=== PATIENT | male | born 1940 | race Caucasian/White ===

== ENCOUNTER 2019-09-25 19:48 | Inpatient (IN) | payer MEDICARE, BC ==
[~2019-09-25] VITALS: Ht 172.7 cm; Wt 68.2 kg
[2019-09-25 19:15] VITALS: BP 148/78
[~2019-09-25 19:48] MED LIST: CALC500T54 PO; LOPE-101 PO; MAGN200T7 PO; POTA20TA4 PO; PSYL0.5215 PO; SODI650T PO; TAMS0.4C97 PO; TRAM50TA PO
[2019-09-25] MEDS ORDERED: POTASSIUM CHLORIDE 20 MEQ TABLET.ER. PO ONE (20:15)
[2019-09-25] MEDS ORDERED: DOCUSATE SODIUM 100 MG CAPSULE. PO PRN (21:15)
[2019-09-25] MEDS ORDERED: ONDANSETRON PF 4 MG/2 ML VIAL. IV PRN (21:15)
[2019-09-25] MEDS ORDERED: ACETAMINOPHEN 325 MG TABLET. PO PRN (21:15)
[2019-09-25] MEDS: PSYLLIUM HUSK (SUGAR FREE) 1 PKT PACKET PO SCH (21:30)
[2019-09-25] MEDS: LOPERAMIDE 2 MG CAPSULE PO SCH (21:45)
[2019-09-25] MEDS: HEPARIN for SUB-Q USE 5,000 UNIT/ML VIAL. SQ SCH (22:44)
[2019-09-25 22:59] VITALS: BP 144/64
[2019-09-26 02:30] VITALS: BP 152/83
[2019-09-26 04:28] LABS: CALCIUM 7.8 mg/dL (8.5-10.1); CREATININE 3.3 mg/dL (0.7-1.3); GFR 18.1; MAGNESIUM 2.2 mg/dL (1.8-2.4)
[2019-09-26] MEDS: HEPARIN for SUB-Q USE 5,000 UNIT/ML VIAL. SQ SCH ×3 (06:10→23:20)
[2019-09-26 07:00] VITALS: BP 153/93
--- NOTE | 2019-09-26 08:01 | PDOC1 ---
History and Physical Date of Admission Date of Admission DATE: 09/26/19 TIME: 07:49 Identification/Chief Complaint Chief Complaint Shortness of breath Source Source: Patient History of Present Illness History of Present Illness Mr Puente is an 79yo M w/ PMHx Rectal Cancer s/p diverting ileostomy, diastolic CHF, CKD, ETOH use disorder in remission who presents to the emergency department at [facility] on 09/25/2019 with a several day history of progressive lightheadedness and feeling weak. He states the last time he felt like this he was in renal failure. Patient also states that he has been having shortness of breath dyspnea on exertion he is not making much urine. CXR revealed bilateral small effusions and bibasilar opacities adjacent to effusions left greater than right. Labs significant for BNP greater than 35,000, WBC 9.2, Hb 11.6, platelets 313, albumin 3.3. NA 140, K3.4, BUN 43, CR 3.5, glucose 123, troponin 0 0.128, repeat troponin 0 0.099. EKG: Normal sinus rhythm rate of [address]-T changes He was given 80 mg of furosemide and transferred to [facility]. Here for further treatment Past Medical History Cardiovascular: HTN, Hyperlipidemia Heme/Onc: Cancer Renal/: Chronic renal insuff, Benign prostatic enlarg. Past Surgical History Past Surgical History: Cholecystectomy, Cataract Removal, Colectomy, Other Family History Family History: Hypertension Social History Smoke: No ALCOHOL: none (Quit) Drugs: None Current Medications Current Medications Current Medications Potassium Chloride (Klor-Con) 40 meq 1X ONCE PO Last administered on 09/25/19at 21:00; Start 09/25/19 at 20:15; Stop 09/25/19 at 20:16; Status DC Ondansetron HCl (Zofran) 4 mg PRN Q4HRS PRN IV NAUSEA/VOMITING; Start 09/25/19 at 21:15 Acetaminophen (Tylenol) 650 mg PRN Q4HRS PRN PO TEMP OVER 100.4F OR MILD PAIN; Start 09/25/19 at 21:15 Docusate Sodium (Colace) 100 mg PRN BID PRN PO HARD STOOLS; Start 09/25/19 at 21:15 Loperamide HCl (Imodium) 2 mg TID PO ; Start 09/25/19 at 21:45 Potassium Chloride (Klor-Con) 20 meq BIDWMEALS PO ; Start 09/26/19 at 08:00 Sodium Bicarbonate (Sodium Bicarbonate) 1,300 mg TIDWMEALS PO ; Start 09/26/19 at 08:00 Tamsulosin HCl (Flomax) 0.4 mg DAILY PO ; Start 09/26/19 at 09:00 Tramadol HCl (Ultram) 50 mg PRN Q8HRS PRN PO PAIN; Start 09/25/19 at 21:30 Calcium Carbonate/ Glycine (Oscal) 500 mg TIDWMEALS PO ; Start 09/26/19 at 08:00 Magnesium Oxide (Magnesium Oxide) 400 mg TID PO ; Start 09/26/19 at 09:00 Psyllium Hydrophilic Mucilloid (Metamucil Fiber Packet) 1 pkt QHS PO ; Start 09/25/19 at 21:30 Furosemide (Lasix) 40 mg BID92 IVP ; Start 09/26/19 at 09:00 Heparin Sodium (Porcine) (Heparin Sodium) 5,000 unit Q8HRS SQ Last administered on 09/26/19at 06:10; Start 09/25/19 at 22:00 Active Scripts Active Calcium (Calcium Carbonate) 500 Mg Tab.chew 1 Tab PO TID 30 Days Sodium Bicarbonate 650 Mg Tablet 2 Tab PO TID 30 Days Potassium Chloride (Potassium Chloride) 20 Meq Tablet.er 20 Meq PO BID 30 Days Mag-Oxide (Magnesium Oxide) 200 Mg Tablet 1 Tab PO TID 30 Days Imodium A-D (Loperamide HCl) 2 Mg Capsule 2 Mg PO TID 30 Days Metamucil (Psyllium Husk) 0.52 Gm Capsule 1 Cap PO DAILY 30 Days Reported Tramadol Hcl 50 Mg Tablet 50 Mg PO PRN Q8HRS PRN Flomax (Tamsulosin Hcl) 0.4 Mg Cap.er.24h 1 Cap PO DAILY Allergies Allergies: Coded Allergies: aspirin (Verified Allergy, Intermediate, chest pain, 07/08/19) Penicillins (Verified Allergy, Unknown, 09/26/19) ROS General: YES: Fatigue, Malaise; No: Chills, Night Sweats, Appetite, Other PSYCHOLOGICAL ROS: YES: Depression; No: Anxiety, Behavioral Disorder, Concentration difficultie, Decreased libido, Disorientation, Hallucinations, Hostility, Irritablity, Memory difficulties, Mood Swings, Obsessive thoughts, Physical abuse, Sexual abuse, Sleep disturbances, Suicidal ideation, Other Eyes: No Blurry vision, No Decreased vision, No Double vision, No Dry eyes, No Excessive tearing, No Eye Pain, No Itchy Eyes, No Loss of vision, No Photophobia, No Scotomata, No Uses contacts, No Uses glasses, No Other HEENT: No: Heacaches, Visual Changes, Hearing change, Nasal congestion, Nasal discharge, Oral lesions, Sinus pain, Sore Throat, Epistaxis, Sneezing, Snoring, Tinnitus, Vertigo, Vocal changes, Other ALLERGY AND IMMUNOLOGY: No: Hives, Insect Bite Sensitivity, Itchy/Watery Eyes, Nasal Congestion, Post Nasal Drip, Seasonal Allergies, Other Hematological and Lymphatic: No: Bleeding Problems, Blood Clots, Blood Transfusions, Brusing, Night Sweats, Pallor, Swollen Lymph Nodes, Other ENDOCRINE: No: Breast Changes, Galactorrhea, Hair Pattern Changes, Hot Flashes, Malaise/lethargy, Mood Swings, Palpitations, Polydipsia/polyuria, Skin Changes, Temperature Intolerance, Unexpected Weight Changes, Other Breast: No New/Changing Breast Lumps, No Nipple changes, No Nipple discharge, No Other Respiratory: YES: Shortness of breath, SOB with excertion; No: Cough, Hemoptysis, Orthopnea, Pleuritic Pain, Sputum Changes, Stridor, Tachypnea, Wheezing, Other Cardiovascular: No Chest Pain, No Palpitations, No Orthopnea, No Paroxysmal Noc. Dyspnea, No Edema, No Lt Headedness, No Other Gastrointestinal: No Nausea, No Vomiting, No Abdominal Pain, No Diarrhea, No Constipation, No Melena, No Hematochezia, No Other Genitourinary: No Dysuria, No Frequency, No Incontinence, No Hematuria, No Retention, No Discharge, No Urgency, No Pain, No Flank Pain, No Other, No , No , No , No , No , No , No Musculoskeletal: Yes Muscular Weakness; No Gait Disturbance, No Joint Pain, No Joint Stiffness, No Joint Swelling, No Muscle Pain, No Pain In:, No Swelling In:, No Other Neurological: No Behavorial Changes, No Bowel/Bladder ControlChng, No Confusion, No Dizziness, No Gait Disturbance, No Headaches, No Impaired Coord/balance, No Memory Loss, No Numbness/Tingling, No Seizures, No Speech Problems, No Tremors, No Visual Changes, No Weakness, No Other Skin: No Dry Skin, No Eczema, No Hair Changes, No Lumps, No Mole Changes, No Mottling, No Nail Changes, No Pruritus, No Rash, No Skin Lesion Changes, No Other, No Acne Physical Exam General: Alert, Oriented X3, Cooperative, moderate distress HEENT: Atraumatic, PERRLA, EOMI, Mucous membr. moist/pink Lungs: Other (Bibasilar crackles) Heart: S1S2, RRR, no thrills, no rubs, no gallops, no murmurs Abdomen: Normal bowel sounds, Soft, No tenderness, No hepatosplenomegaly, No masses Rectal Exam: not examined Extremities: No clubbing, No cyanosis, No edema, Normal pulses, No tenderness/swelling Skin: No rashes, No breakdown, No significant lesion Neuro: Normal speech, Strength at 5/5 X4 ext, Normal tone, Sensation intact, Cranial nerves 3-12 NL, Reflexes 2+ Psych/Mental Status: Mental status NL, Mood NL Vitals Vitals Vital Signs Date Time Temp Pulse Resp B/P (MAP) Pulse Ox O2 Delivery O2 Flow Rate FiO2 09/26/19 02:30 98.2 48 24 152/83 (106) 97 Nasal Cannula 2.0 98.2 Labs Labs Laboratory Tests Test 09/26/19 03:30 09/26/19 06:05 Sodium Level 139 mmol/L (136-145) Potassium Level 4.0 mmol/L (3.5-5.1) Chloride Level 99 mmol/L (98-107) Carbon Dioxide Level 30 mmol/L (21-32) Anion Gap 10 (6-14) Blood Urea Nitrogen 46 mg/dL (8-26) Creatinine 3.3 mg/dL (0.7-1.3) Estimated GFR (Cockcroft-Gault) 18.1 Glucose Level 111 mg/dL (70-99) Calcium Level 7.8 mg/dL (8.5-10.1) Magnesium Level 2.2 mg/dL (1.8-2.4) Troponin I Quantitative 0.099 ng/mL (0.000-0.055) 0.097 ng/mL (0.000-0.055) Laboratory Tests Test 09/26/19 03:30 09/26/19 06:05 Sodium Level 139 mmol/L (136-145) Potassium Level 4.0 mmol/L (3.5-5.1) Chloride Level 99 mmol/L (98-107) Carbon Dioxide Level 30 mmol/L (21-32) Anion Gap 10 (6-14) Blood Urea Nitrogen 46 mg/dL (8-26) Creatinine 3.3 mg/dL (0.7-1.3) Estimated GFR (Cockcroft-Gault) 18.1 Glucose Level 111 mg/dL (70-99) Calcium Level 7.8 mg/dL (8.5-10.1) Magnesium Level 2.2 mg/dL (1.8-2.4) Troponin I Quantitative 0.099 ng/mL (0.000-0.055) 0.097 ng/mL (0.000-0.055) Images Images CXR: There is a small left pleural effusion, also very small right pleural effusion. There is bibasilar airspace opacity adjacent to the effusions, left greater than right. No pneumothorax is identified. Catheter projecting over the right inferior neck is believed to be external to patient. Pericardial cardiac silhouette is somewhat enlarged although unchanged. Impression: 1. There are left greater than right pleural effusions with adjacent bibasilar airspace opacity which may be due to edema/atelectasis although infiltrates not excluded. Constellation of findings could be due to left ventricular failure. VTE Prophylaxis Ordered VTE Prophylaxis Devices: No VTE Pharmacological Prophylaxi: Yes Assessment/Plan Assessment/Plan A/P: Acute on chronic diastolic (congestive) heart failure - will continue diuresis with IV lasix. Consult cardiology. Cont BB, statin, ASA. Cr. precludes MEDINA/ARB therapy. SUHAS on Chronic renal failure, stage 4 (severe) - likely vasomotor nephropathy, cardiorenal. Will diurese to improve renal perfusion Bilateral pleural effusions - Will diurese, likely CHF related. Check procalcitonin. No risk factors for COVID 19 Acute hypoxic respiratory failure - likely related to above. Will diurese, wean O2 as tolerated Colorectal cancer in remission - s/p diverting ileostomy. Stoma care ordered Elevated troponin - likely demand ischemia given acute CHF exacerbation Loss of appetite - will start on remeron Insomnia - as above FEN - Renal diet PPX - heparin FULL CODE Dispo - inpatient for CHF exacerbation 2 midnights. SHAKA BAL MD September 26, 2019 08:00
[2019-09-26] MEDS: SODIUM BICARBONATE 650 MG TABLET. PO SCH ×3 (08:07→18:14)
[2019-09-26] MEDS: CALCIUM CARBONATE 500 MG TABLET PO SCH ×3 (08:07→18:14)
[2019-09-26] MEDS: MAGNESIUM OXIDE 400 MG TABLET PO SCH ×3 (08:07→23:13)
[2019-09-26] MEDS: TAMSULOSIN 0.4 MG CAP.ER.24H. PO SCH (08:08)
[2019-09-26] MEDS: LOPERAMIDE 2 MG CAPSULE PO SCH ×3 (08:08→23:13)
[2019-09-26] MEDS: POTASSIUM CHLORIDE 20 MEQ TABLET.ER. PO SCH ×2 (08:08→18:15)
[2019-09-26] MEDS: FUROSEMIDE 40 MG/4 ML VIAL. IVP SCH ×2 (08:09→15:11)
--- NOTE | 2019-09-26 09:56 | PDOC2 ---
CONSULT Date of Consult Date of Consult DATE: 09/26/19 TIME: 09:56 Reason for Consult Reason for Consult: Congestive heart failure Referring Physician Referring Physician: Dr. Hoffman Identification/Chief Complaint Chief Complaint Shortness of breath Source Source: Chart review, Patient History of Present Illness Reason for Visit: 79-year-old male with history of paroxysmal atrial fibrillation, chronic diastolic heart failure, rectal cancer s/p diverting ileostomy initially presented to [facility] with generalized fatigue, loss of appetite, lightheadedness, shortness of breath and was diagnosed with acute on chronic diastolic heart failure and acute on chronic renal insufficiency. He was given 80 mg Lasix and transferred to [facility] for further management. Patient stated that his dyspnea improved but he continues to have fatigue. He denied any chest pain, palpitations or syncope. Past Medical History Cardiovascular: AFIB, CHF, HTN, Hyperlipidemia Heme/Onc: Cancer Renal/: Chronic renal insuff, Benign prostatic enlarg. Past Surgical History Past Surgical History: Cholecystectomy, Cataract Removal, Colectomy, Other Family History Family History: Hypertension Social History No ALCOHOL: none (Quit) Drugs: None Lives: with Family Current Medications Current Medications Current Medications Potassium Chloride (Klor-Con) 40 meq 1X ONCE PO Last administered on 09/25/19at 21:00; Start 09/25/19 at 20:15; Stop 09/25/19 at 20:16; Status DC Ondansetron HCl (Zofran) 4 mg PRN Q4HRS PRN IV NAUSEA/VOMITING; Start 09/25/19 at 21:15 Acetaminophen (Tylenol) 650 mg PRN Q4HRS PRN PO TEMP OVER 100.4F OR MILD PAIN; Start 09/25/19 at 21:15 Docusate Sodium (Colace) 100 mg PRN BID PRN PO HARD STOOLS; Start 09/25/19 at 21:15 Loperamide HCl (Imodium) 2 mg TID PO Last administered on 09/26/19at 08:08; Start 09/25/19 at 21:45 Potassium Chloride (Klor-Con) 20 meq BIDWMEALS PO Last administered on 09/26/19at 08:08; Start 09/26/19 at 08:00 Sodium Bicarbonate (Sodium Bicarbonate) 1,300 mg TIDWMEALS PO Last administered on 09/26/19at 08:07; Start 09/26/19 at 08:00 Tamsulosin HCl (Flomax) 0.4 mg DAILY PO Last administered on 09/26/19at 08:08; Start 09/26/19 at 09:00 Tramadol HCl (Ultram) 50 mg PRN Q8HRS PRN PO PAIN; Start 09/25/19 at 21:30 Calcium Carbonate/ Glycine (Oscal) 500 mg TIDWMEALS PO Last administered on 09/26/19at 08:07; Start 09/26/19 at 08:00 Magnesium Oxide (Magnesium Oxide) 400 mg TID PO Last administered on 09/26/19at 08:07; Start 09/26/19 at 09:00 Psyllium Hydrophilic Mucilloid (Metamucil Fiber Packet) 1 pkt QHS PO ; Start 09/25/19 at 21:30 Furosemide (Lasix) 40 mg BID92 IVP Last administered on 09/26/19at 08:09; Start 09/26/19 at 09:00 Heparin Sodium (Porcine) (Heparin Sodium) 5,000 unit Q8HRS SQ Last administered on 09/26/19at 06:10; Start 09/25/19 at 22:00 Active Scripts Active Calcium (Calcium Carbonate) 500 Mg Tab.chew 1 Tab PO TID 30 Days Sodium Bicarbonate 650 Mg Tablet 2 Tab PO TID 30 Days Potassium Chloride (Potassium Chloride) 20 Meq Tablet.er 20 Meq PO BID 30 Days Mag-Oxide (Magnesium Oxide) 200 Mg Tablet 1 Tab PO TID 30 Days Imodium A-D (Loperamide HCl) 2 Mg Capsule 2 Mg PO TID 30 Days Metamucil (Psyllium Husk) 0.52 Gm Capsule 1 Cap PO DAILY 30 Days Reported Tramadol Hcl 50 Mg Tablet 50 Mg PO PRN Q8HRS PRN Flomax (Tamsulosin Hcl) 0.4 Mg Cap.er.24h 1 Cap PO DAILY Allergies Allergies: Coded Allergies: aspirin (Verified Allergy, Intermediate, chest pain, 07/08/19) Penicillins (Verified Allergy, Unknown, 09/26/19) ROS General: YES: Fatigue, Malaise, Appetite (Loss of) PSYCHOLOGICAL ROS: No: Hallucinations Eyes: No Loss of vision HEENT: No: Epistaxis Respiratory: YES: Shortness of breath; No: Hemoptysis Cardiovascular: No Chest Pain, No Palpitations Genitourinary: No Hematuria Neurological: No Seizures Skin: No Rash Physical Exam General: Alert, Oriented X3, No acute distress HEENT: Atraumatic Lungs: Other (Decreased air entry bases) Heart: Regular rate Abdomen: Soft Extremities: Other (Trace edema) Psych/Mental Status: Mood NL Vitals VITALS Vital Signs Date Time Temp Pulse Resp B/P (MAP) Pulse Ox O2 Delivery O2 Flow Rate FiO2 09/26/19 07:00 98.2 48 153/93 (113) 97 Nasal Cannula 2.0 98.2 09/26/19 02:30 24 Labs Labs Laboratory Tests Test 09/26/19 03:30 09/26/19 06:05 Sodium Level 139 mmol/L (136-145) Potassium Level 4.0 mmol/L (3.5-5.1) Chloride Level 99 mmol/L (98-107) Carbon Dioxide Level 30 mmol/L (21-32) Anion Gap 10 (6-14) Blood Urea Nitrogen 46 mg/dL (8-26) Creatinine 3.3 mg/dL (0.7-1.3) Estimated GFR (Cockcroft-Gault) 18.1 Glucose Level 111 mg/dL (70-99) Calcium Level 7.8 mg/dL (8.5-10.1) Magnesium Level 2.2 mg/dL (1.8-2.4) Troponin I Quantitative 0.099 ng/mL (0.000-0.055) 0.097 ng/mL (0.000-0.055) Procalcitonin < 0.10 ng/mL (0.00-0.10) Laboratory Tests Test 09/26/19 03:30 09/26/19 06:05 Sodium Level 139 mmol/L (136-145) Potassium Level 4.0 mmol/L (3.5-5.1) Chloride Level 99 mmol/L (98-107) Carbon Dioxide Level 30 mmol/L (21-32) Anion Gap 10 (6-14) Blood Urea Nitrogen 46 mg/dL (8-26) Creatinine 3.3 mg/dL (0.7-1.3) Estimated GFR (Cockcroft-Gault) 18.1 Glucose Level 111 mg/dL (70-99) Calcium Level 7.8 mg/dL (8.5-10.1) Magnesium Level 2.2 mg/dL (1.8-2.4) Troponin I Quantitative 0.099 ng/mL (0.000-0.055) 0.097 ng/mL (0.000-0.055) Procalcitonin < 0.10 ng/mL (0.00-0.10) Assessment/Plan Assessment/Plan 1. Acute on chronic diastolic heart failure, better compensated with diuresis. Recent 2D echo in July 2019 showed LVEF 55%. Continue current medical regimen. 2. Slight troponin elevation most probably demand ischemia. Patient denied any chest pain. Doubt ACS. Will consider ischemic evaluation as an outpatient. 3. Paroxysmal atrial fibrillation, presently in sinus rhythm. Telemetry showed one brief episode of NSVT. Magnesium level normal. Patient had few bradycardic episodes on telemetry and hence cannot start beta-blockers. He is a poor candidate for long-term anticoagulation. He has aspirin allergy as well. We will consider event monitor as an outpatient and possible referral for LAAO. 4. Acute on chronic renal insufficiency: Nephrology consultation 5. Hypertension: Start Norvasc to control Thank you for your consultation SHINE MARVIN MD September 26, 2019 09:56
[2019-09-26 11:00] VITALS: BP 141/96
[2019-09-26] MEDS: amLODIPine BESYLATE 5 MG TABLET PO SCH (12:25)
--- NOTE | 2019-09-26 14:55 | PDOC2 ---
CONSULT Date of Consult Date of Consult DATE: 09/26/19 TIME: 14:48 Reason for Consult Reason for Consult: SUHAS AND CKD Referring Physician Referring Physician: VALERIANO Identification/Chief Complaint Chief Complaint SOB Source Source: Chart review, Patient History of Present Illness Reason for Visit: THIS IS AN 79 YR OLD MALE WITH MILD SOB, WEAKNESS AND LIGHT HEADEDNESS. ALSO HAS SUHAS WITH CR OF 3.3. HAS CKD STAGE 4 WITH BASELINE CR OF 2.8. HX NOTABLE FOR COLON CANCER AND DIVERTING COLOSTOMY. ALSO NOTED TO HAVE SOME CHF ON IMAGING. CARDIOLOGY EVALUATION ONGOING AT THIS TIME. GIVEN 80 MG OF LASIX PRIOR TO TRANSFER HERE [facility] [place]. NO HX OF KIDNEY OR BLADDER SURGERIES HEMATURIA DYSURIA OR FREQUENCY NOTED. NO PROBLEMS WITH EMPTYING HIS BLADDER Past Medical History Cardiovascular: AFIB, CHF, HTN, Hyperlipidemia Heme/Onc: Cancer Renal/: Chronic renal insuff, Benign prostatic enlarg. Past Surgical History Past Surgical History: Cholecystectomy, Cataract Removal, Colectomy, Other Family History Family History: Hypertension Social History No ALCOHOL: none (Quit) Drugs: None Lives: with Family Current Medications Current Medications Current Medications Potassium Chloride (Klor-Con) 40 meq 1X ONCE PO Last administered on 09/25/19at 21:00; Start 09/25/19 at 20:15; Stop 09/25/19 at 20:16; Status DC Ondansetron HCl (Zofran) 4 mg PRN Q4HRS PRN IV NAUSEA/VOMITING; Start 09/25/19 at 21:15 Acetaminophen (Tylenol) 650 mg PRN Q4HRS PRN PO TEMP OVER 100.4F OR MILD PAIN; Start 09/25/19 at 21:15 Docusate Sodium (Colace) 100 mg PRN BID PRN PO HARD STOOLS; Start 09/25/19 at 21:15 Loperamide HCl (Imodium) 2 mg TID PO Last administered on 09/26/19at 08:08; Start 09/25/19 at 21:45 Potassium Chloride (Klor-Con) 20 meq BIDWMEALS PO Last administered on 09/26/19at 08:08; Start 09/26/19 at 08:00 Sodium Bicarbonate (Sodium Bicarbonate) 1,300 mg TIDWMEALS PO Last administered on 09/26/19at 08:07; Start 09/26/19 at 08:00 Tamsulosin HCl (Flomax) 0.4 mg DAILY PO Last administered on 09/26/19at 08:08; Start 09/26/19 at 09:00 Tramadol HCl (Ultram) 50 mg PRN Q8HRS PRN PO PAIN; Start 09/25/19 at 21:30 Calcium Carbonate/ Glycine (Oscal) 500 mg TIDWMEALS PO Last administered on 09/26/19at 08:07; Start 09/26/19 at 08:00 Magnesium Oxide (Magnesium Oxide) 400 mg TID PO Last administered on 09/26/19at 08:07; Start 09/26/19 at 09:00 Psyllium Hydrophilic Mucilloid (Metamucil Fiber Packet) 1 pkt QHS PO ; Start 09/25/19 at 21:30 Furosemide (Lasix) 40 mg BID92 IVP Last administered on 09/26/19at 08:09; Start 09/26/19 at 09:00 Heparin Sodium (Porcine) (Heparin Sodium) 5,000 unit Q8HRS SQ Last administered on 09/26/19at 06:10; Start 09/25/19 at 22:00 Mirtazapine (Remeron) 7.5 mg QHS PO ; Start 09/26/19 at 21:00 Amlodipine Besylate (Norvasc) 5 mg DAILY PO Last administered on 09/26/19at 12:25; Start 09/26/19 at 11:30 Active Scripts Active Calcium (Calcium Carbonate) 500 Mg Tab.chew 1 Tab PO TID 30 Days Sodium Bicarbonate 650 Mg Tablet 2 Tab PO TID 30 Days Potassium Chloride (Potassium Chloride) 20 Meq Tablet.er 20 Meq PO BID 30 Days Mag-Oxide (Magnesium Oxide) 200 Mg Tablet 1 Tab PO TID 30 Days Imodium A-D (Loperamide HCl) 2 Mg Capsule 2 Mg PO TID 30 Days Metamucil (Psyllium Husk) 0.52 Gm Capsule 1 Cap PO DAILY 30 Days Reported Tramadol Hcl 50 Mg Tablet 50 Mg PO PRN Q8HRS PRN Flomax (Tamsulosin Hcl) 0.4 Mg Cap.er.24h 1 Cap PO DAILY Allergies Allergies: Coded Allergies: aspirin (Verified Allergy, Intermediate, chest pain, 07/08/19) Penicillins (Verified Allergy, Unknown, 09/26/19) ROS General: YES: Fatigue, Malaise PSYCHOLOGICAL ROS: YES: Anxiety Eyes: Yes Decreased vision HEENT: YES: Heacaches Respiratory: YES: Shortness of breath Gastrointestinal: Yes Constipation Genitourinary: YES Frequency, YES Retention Musculoskeletal: Yes Muscular Weakness Neurological: Yes Dizziness, Yes Weakness Physical Exam General: Alert, Oriented X3, No acute distress HEENT: PERRLA Lungs: Clear to auscultation Heart: Regular rate Abdomen: Normal bowel sounds, Soft, No tenderness Extremities: No cyanosis Neuro: Normal speech, Sensation intact Psych/Mental Status: Mental status NL, Mood NL MUSCULOSKELETAL: No joint tenderness, No deformity, No swelling Vitals VITALS Vital Signs Date Time Temp Pulse Resp B/P (MAP) Pulse Ox O2 Delivery O2 Flow Rate FiO2 09/26/19 12:25 68 141/96 09/26/19 11:00 97.6 96 Nasal Cannula 2.0 97.6 09/26/19 02:30 24 Labs Labs Laboratory Tests Test 09/26/19 03:30 09/26/19 06:05 Sodium Level 139 mmol/L (136-145) Potassium Level 4.0 mmol/L (3.5-5.1) Chloride Level 99 mmol/L (98-107) Carbon Dioxide Level 30 mmol/L (21-32) Anion Gap 10 (6-14) Blood Urea Nitrogen 46 mg/dL (8-26) Creatinine 3.3 mg/dL (0.7-1.3) Estimated GFR (Cockcroft-Gault) 18.1 Glucose Level 111 mg/dL (70-99) Calcium Level 7.8 mg/dL (8.5-10.1) Magnesium Level 2.2 mg/dL (1.8-2.4) Troponin I Quantitative 0.099 ng/mL (0.000-0.055) 0.097 ng/mL (0.000-0.055) Procalcitonin < 0.10 ng/mL (0.00-0.10) Laboratory Tests Test 09/26/19 03:30 09/26/19 06:05 Sodium Level 139 mmol/L (136-145) Potassium Level 4.0 mmol/L (3.5-5.1) Chloride Level 99 mmol/L (98-107) Carbon Dioxide Level 30 mmol/L (21-32) Anion Gap 10 (6-14) Blood Urea Nitrogen 46 mg/dL (8-26) Creatinine 3.3 mg/dL (0.7-1.3) Estimated GFR (Cockcroft-Gault) 18.1 Glucose Level 111 mg/dL (70-99) Calcium Level 7.8 mg/dL (8.5-10.1) Magnesium Level 2.2 mg/dL (1.8-2.4) Troponin I Quantitative 0.099 ng/mL (0.000-0.055) 0.097 ng/mL (0.000-0.055) Procalcitonin < 0.10 ng/mL (0.00-0.10) Assessment/Plan Assessment/Plan IMP SUHAS VS PROGRESSIVE CKD STAGE 4-CR OF 3.3 ACUTE ON CHRONIC DIASTOLIC CHF ACUTE HYPOXIC RESP FAILURE COLON CA IN REMISSION-S/P DIVERTING COLOSTOMY PLAN CARDIOLOGY EVALUATION CONT FLOMAX IV LASIX NEEDED HE MAY NEED DIALYSIS CHECK H/H CHECK PO4 D/W PT GREGORIA ALBERTO MD September 26, 2019 14:55
[2019-09-26 15:00] VITALS: BP 135/75
[2019-09-26] MEDS: traMADol 50 MG TABLET PO PRN (15:12)
[2019-09-26 19:00] VITALS: BP 135/52
[2019-09-26] MEDS: PSYLLIUM HUSK (SUGAR FREE) 1 PKT PACKET PO SCH (21:00)
[2019-09-26 23:02] VITALS: BP 143/62
[2019-09-26] MEDS: MIRTAZAPINE 7.5 MG TABLET. PO SCH (23:13)
[2019-09-27 03:02] VITALS: BP 98/68
[2019-09-27 05:06] LABS: HEMATOCRIT 40.1 % (39.0-53.0); HEMOGLOBIN 13.1 g/dL (13.0-17.5); RED BLOOD COUNT 4.53 x10^6/uL (4.30-5.70); RED CELL DISTRIBUTION WIDTH 14.6 % (11.5-14.5); WHITE BLOOD COUNT 7.3 x10^3/uL (4.0-11.0)
[2019-09-27 05:29] LABS: CALCIUM 7.3 mg/dL (8.5-10.1); CREATININE 3.3 mg/dL (0.7-1.3); GFR 18.1; PHOSPHORUS 4.4 mg/dL (2.6-4.7)
[2019-09-27] MEDS: HEPARIN for SUB-Q USE 5,000 UNIT/ML VIAL. SQ SCH ×3 (06:36→21:17)
[2019-09-27 07:39] VITALS: BP 116/71
[2019-09-27] MEDS: LOPERAMIDE 2 MG CAPSULE PO SCH ×3 (09:12→21:08)
[2019-09-27] MEDS: POTASSIUM CHLORIDE 20 MEQ TABLET.ER. PO SCH ×2 (09:12→16:58)
[2019-09-27] MEDS: SODIUM BICARBONATE 650 MG TABLET. PO SCH ×3 (09:12→16:58)
[2019-09-27] MEDS: CALCIUM CARBONATE 500 MG TABLET PO SCH ×3 (09:12→16:58)
[2019-09-27] MEDS: amLODIPine BESYLATE 5 MG TABLET PO SCH (09:12)
[2019-09-27] MEDS: MAGNESIUM OXIDE 400 MG TABLET PO SCH ×3 (09:12→21:08)
[2019-09-27] MEDS: TAMSULOSIN 0.4 MG CAP.ER.24H. PO SCH (09:13)
[2019-09-27] MEDS: FUROSEMIDE 40 MG/4 ML VIAL. IVP SCH ×2 (09:13→14:10)
--- NOTE | 2019-09-27 09:24 | PDOC ---
SUBJECTIVE ROS Stable, states battery in his hearing aid needs to be replaced No N/V OBJECTIVE Vital Signs Vital Signs Date Time Temp Pulse Resp B/P (MAP) Pulse Ox O2 Delivery O2 Flow Rate FiO2 09/27/19 09:12 61 116/71 09/27/19 07:39 97.6 20 96 Nasal Cannula 97.6 09/26/19 20:00 2.0 I & 0 Intake and Output 09/27/19 07:00 Output Total 1750 ml Balance -1750 ml Output Urine Total 700 ml Stool Total 1050 ml PHYSICAL EXAM Physical Exam General: Alert, Oriented X3, HEENT: OM moist, On O2 by [place] Lungs: Other (Bibasilar crackles) Heart: S1S2, RRR, no thrills, no rubs, no gallops, no murmurs Abdomen: Normal bowel sounds, Soft, No tenderness, No hepatosplenomegaly, No masses Rectal Exam: not examined Extremities: No clubbing, No cyanosis, No edema, Normal pulses, No tenderness/swelling Skin: No rashes, No breakdown, No significant lesion Neuro: Normal speech, Strength at 5/5 X4 ext, Normal tone, Sensation intact, C ranial nerves 3-12 NL, Reflexes 2+ Psych/Mental Status: Mental status NL, Mood NL DIAGNOSIS/ASSESSMENT Assessment & Plan SUHAS vs progression of CKD Currently No emergent indication for HD today, pt is still undecided if he wants to do HD He will let me know by tomorrow Supportive care, Strict I/O, avoid Nephrotoxins, Daily standing wt, HypoKalemia- replace as indicated On NaHco3 PO, decrease dose if Bicarb high Normal CKD Stage 4 - Cr 2.4 in 2017 , used to follow with Dr. Amaya, did not keep fu appts Was Hospitalized in July 2019, he venecia not make fu appt with nephrology as advised Acute on Chronic Diastolic CHF- Currently in IV Lasix BID, Cardiology managing Ac Hypoxic Resp failure- On O2 by MEHDI Colon Ca in Remission s/p Diverting Colostomy Right renal cyst. Probable left renal cyst - CT scan in Jun 2019 Radiology recommended a follow-up sonogram of both kidneys in 6 months to ensure stability of the left renal lesion. Defer to Primary BPH- On Flomax COMMENT/RELEVANT DATA Meds Current Medications Medications (Trade) Dose Ordered Sig/Richard Start Time Stop Time Status Last Admin Dose Admin Acetaminophen (Tylenol) 650 mg PRN Q4HRS PRN 09/25/19 21:15 09/26/19 23:13 650 MG Amlodipine Besylate (Norvasc) 5 mg DAILY 09/26/19 11:30 09/27/19 09:12 5 MG Calcium Carbonate/ Glycine (Oscal) 500 mg TIDWMEALS 09/26/19 08:00 09/27/19 09:12 500 MG Docusate Sodium (Colace) 100 mg PRN BID PRN 09/25/19 21:15 Furosemide (Lasix) 40 mg BID92 09/26/19 09:00 09/27/19 09:13 40 MG Heparin Sodium (Porcine) (Heparin Sodium) 5,000 unit Q8HRS 09/25/19 22:00 09/27/19 06:36 5,000 UNIT Loperamide HCl (Imodium) 2 mg TID 09/25/19 21:45 09/27/19 09:12 2 MG Magnesium Oxide (Magnesium Oxide) 400 mg TID 09/26/19 09:00 09/27/19 09:12 400 MG Mirtazapine (Remeron) 7.5 mg QHS 09/26/19 21:00 09/26/19 23:13 7.5 MG Ondansetron HCl (Zofran) 4 mg PRN Q4HRS PRN 09/25/19 21:15 Potassium Chloride (Klor-Con) 20 meq BIDWMEALS 09/26/19 08:00 09/27/19 09:12 20 MEQ Psyllium Hydrophilic Mucilloid (Metamucil Fiber Packet) 1 pkt QHS 09/25/19 21:30 Sodium Bicarbonate (Sodium Bicarbonate) 1,300 mg TIDWMEALS 09/26/19 08:00 09/27/19 09:12 1,300 MG Tamsulosin HCl (Flomax) 0.4 mg DAILY 09/26/19 09:00 09/27/19 09:13 0.4 MG Tramadol HCl (Ultram) 50 mg PRN Q8HRS PRN 09/25/19 21:30 09/26/19 15:12 50 MG Lab Laboratory Tests Test 09/27/19 03:55 White Blood Count 7.3 x10^3/uL (4.0-11.0) Red Blood Count 4.53 x10^6/uL (4.30-5.70) Hemoglobin 13.1 g/dL (13.0-17.5) Hematocrit 40.1 % (39.0-53.0) Mean Corpuscular Volume 89 fL (79-100) Mean Corpuscular Hemoglobin 29 pg (25-35) Mean Corpuscular Hemoglobin Concent 33 g/dL (31-37) Red Cell Distribution Width 14.6 % (11.5-14.5) Platelet Count 315 x10^3/uL (140-400) Sodium Level 143 mmol/L (136-145) Potassium Level 3.0 mmol/L (3.5-5.1) Chloride Level 102 mmol/L (98-107) Carbon Dioxide Level 31 mmol/L (21-32) Anion Gap 10 (6-14) Blood Urea Nitrogen 46 mg/dL (8-26) Creatinine 3.3 mg/dL (0.7-1.3) Estimated GFR (Cockcroft-Gault) 18.1 Glucose Level 94 mg/dL (70-99) Calcium Level 7.3 mg/dL (8.5-10.1) Phosphorus Level 4.4 mg/dL (2.6-4.7) Results All relevant outside records, renal labs, imaging studies, telemetry/EKG's were reviewed. NOÉ NEGRETE MD September 27, 2019 09:23
--- NOTE | 2019-09-27 11:33 | PDOC ---
JANEE VO MATERIALS PLANNER/PRODUCTION PLANNER 09/27/19 1133: CARDIO Progress Notes Date and Time Date of Service 09/27/19 Time of Evaluation 1045 Subjective Subjective: Other (SOA better, but persists ) Vitals Vitals Vital Signs Date Time Temp Pulse Resp B/P (MAP) Pulse Ox O2 Delivery O2 Flow Rate FiO2 09/27/19 09:12 61 116/71 09/27/19 07:39 97.6 20 96 Nasal Cannula 97.6 09/26/19 20:00 2.0 Weight Weight [ ] Input and Output Intake and Output Intake and Output 09/27/19 07:00 Output Total 1750 ml Balance -1750 ml Output Urine Total 700 ml Stool Total 1050 ml Laboratory Labs Laboratory Tests Test 09/27/19 03:55 White Blood Count 7.3 x10^3/uL (4.0-11.0) Red Blood Count 4.53 x10^6/uL (4.30-5.70) Hemoglobin 13.1 g/dL (13.0-17.5) Hematocrit 40.1 % (39.0-53.0) Mean Corpuscular Volume 89 fL (79-100) Mean Corpuscular Hemoglobin 29 pg (25-35) Mean Corpuscular Hemoglobin Concent 33 g/dL (31-37) Red Cell Distribution Width 14.6 % (11.5-14.5) Platelet Count 315 x10^3/uL (140-400) Sodium Level 143 mmol/L (136-145) Potassium Level 3.0 mmol/L (3.5-5.1) Chloride Level 102 mmol/L (98-107) Carbon Dioxide Level 31 mmol/L (21-32) Anion Gap 10 (6-14) Blood Urea Nitrogen 46 mg/dL (8-26) Creatinine 3.3 mg/dL (0.7-1.3) Estimated GFR (Cockcroft-Gault) 18.1 Glucose Level 94 mg/dL (70-99) Calcium Level 7.3 mg/dL (8.5-10.1) Phosphorus Level 4.4 mg/dL (2.6-4.7) Physical Exam HEENT: Neck Supple W Full Motion Chest: Symmetric LUNGS: Other (diminished ) Heart: S1S2, irregularly irregular (AFIB, rate controlled ) Abdomen: Soft N/T Extremities: No Edema Neurology: alert, follow commands Assessment Assessment 1. Acute on chronic diastolic CHF; Recent echo with preserved LV systolic function. better compensated with diuresis. 2. Mild troponin elevation; peak 0.09. Most probably type II, demand ischemia. CP free. 3. PAFIB; remains in AFIB. occasional slow ventricular rate. mean near 60. No pauses. Not on rate control therapy 4. Arrhythmia; brief burst of NSVT. Unable to start BB due to episodes of bradycardia. 4. CKD; awaiting decision on initiating HD 5. Hypertension; controlled 6. Colon CA s/p colectomy with ileostomy 7. Hypokalemia Recommendations Diuresis with monitoring of renal function Awaiting patient decision regarding initiation of HD Consider further ischemic evaluation given heart failure and elevated troponin. If HD is started, can proceed with C. Otherwise, will further risk stratify with stress test given renal failure Keep Mg> 2.0 and K > 4.0 Poor candidate fo long-term OAC. Allergy to ASA. Consider to referral for YAA closure device. Consider outpatient event monitor to guide therapy. Supportive care LEONARDO CHOU MD 09/27/19 1643: CARDIO Progress Notes Plan Plan Pt. seen and examined. Agree with above PLANT PACKER note. Discussed with patient about his dyspnea. Likely related to diastolic HF but cannot rule out underlying CAD. Plan as above JANEE VO APRN September 27, 2019 11:33 LEONARDO CHOU MD September 27, 2019 16:43
[2019-09-27 11:37] VITALS: BP 143/78
--- NOTE | 2019-09-27 12:34 | PDOC ---
PROGRESS NOTES Chief Complaint Chief Complaint Assessment/Plan A/P: Acute on chronic diastolic (congestive) heart failure - will continue diuresis with IV lasix. Consult cardiology. Cont BB, statin, ASA. Cr. precludes MEDINA/ARB therapy. SUHAS on Chronic renal failure, stage 4 (severe) - likely vasomotor nephropathy, cardiorenal. Continue with diuresis to improve renal perfusion Bilateral pleural effusions - Will diurese, likely CHF related. Check procalcitonin. No risk factors for COVID 19 Acute hypoxic respiratory failure - likely related to above. Will diurese, wean O2 as tolerated Colorectal cancer in remission - s/p diverting ileostomy. Stoma care ordered Elevated troponin - likely demand ischemia given acute CHF exacerbation Loss of appetite - will start on remeron Insomnia - as above FEN - Renal diet PPX - heparin FULL CODE Dispo - inpatient for CHF exacerbation 2 midnights. History of Present Illness History of Present Illness Patient quite somnolent this morning with no acute events reported overnight by nursing staff, we will continue to follow recommendations from bridal sales consultant, CODE STATUS updated Vitals Vitals Vital Signs Date Time Temp Pulse Resp B/P (MAP) Pulse Ox O2 Delivery O2 Flow Rate FiO2 09/27/19 11:37 97.6 57 20 143/78 (99) 97 Nasal Cannula 97.6 09/27/19 08:45 2.0 Physical Exam Physical Exam General: Alert, Oriented X3, Cooperative, moderate distress HEENT: Atraumatic, PERRLA, EOMI, Mucous membr. moist/pink Lungs: Other (Bibasilar crackles) Heart: S1S2, RRR, no thrills, no rubs, no gallops, no murmurs Abdomen: Normal bowel sounds, Soft, No tenderness, No hepatosplenomegaly, No masses Rectal Exam: not examined Extremities: No clubbing, No cyanosis, No edema, Normal pulses, No t enderness/swelling Skin: No rashes, No breakdown, No significant lesion Neuro: Normal speech, Strength at 5/5 X4 ext, Normal tone, Sensation intact, Cranial nerves 3-12 NL, Reflexes 2+ Psych/Mental Status: Mental status NL, Mood NL General: Alert, Oriented X3, No acute distress Heart: Regular rate Abdomen: Normal bowel sounds, Soft, No tenderness Extremities: No cyanosis Skin: No rashes, No breakdown, No significant lesion Labs LABS Laboratory Tests Test 09/27/19 03:55 White Blood Count 7.3 x10^3/uL (4.0-11.0) Red Blood Count 4.53 x10^6/uL (4.30-5.70) Hemoglobin 13.1 g/dL (13.0-17.5) Hematocrit 40.1 % (39.0-53.0) Mean Corpuscular Volume 89 fL (79-100) Mean Corpuscular Hemoglobin 29 pg (25-35) Mean Corpuscular Hemoglobin Concent 33 g/dL (31-37) Red Cell Distribution Width 14.6 % (11.5-14.5) Platelet Count 315 x10^3/uL (140-400) Sodium Level 143 mmol/L (136-145) Potassium Level 3.0 mmol/L (3.5-5.1) Chloride Level 102 mmol/L (98-107) Carbon Dioxide Level 31 mmol/L (21-32) Anion Gap 10 (6-14) Blood Urea Nitrogen 46 mg/dL (8-26) Creatinine 3.3 mg/dL (0.7-1.3) Estimated GFR (Cockcroft-Gault) 18.1 Glucose Level 94 mg/dL (70-99) Calcium Level 7.3 mg/dL (8.5-10.1) Phosphorus Level 4.4 mg/dL (2.6-4.7) Comment Review of Relevant I have reviewed the following items salome (where applicable) has been applied. Labs Laboratory Tests Test 09/26/19 03:30 09/26/19 06:05 09/27/19 03:55 Sodium Level 139 mmol/L (136-145) 143 mmol/L (136-145) Potassium Level 4.0 mmol/L (3.5-5.1) 3.0 mmol/L (3.5-5.1) Chloride Level 99 mmol/L (98-107) 102 mmol/L (98-107) Carbon Dioxide Level 30 mmol/L (21-32) 31 mmol/L (21-32) Anion Gap 10 (6-14) 10 (6-14) Blood Urea Nitrogen 46 mg/dL (8-26) 46 mg/dL (8-26) Creatinine 3.3 mg/dL (0.7-1.3) 3.3 mg/dL (0.7-1.3) Estimated GFR (Cockcroft-Gault) 18.1 18.1 Glucose Level 111 mg/dL (70-99) 94 mg/dL (70-99) Calcium Level 7.8 mg/dL (8.5-10.1) 7.3 mg/dL (8.5-10.1) Magnesium Level 2.2 mg/dL (1.8-2.4) Troponin I Quantitative 0.099 ng/mL (0.000-0.055) 0.097 ng/mL (0.000-0.055) Procalcitonin < 0.10 ng/mL (0.00-0.10) White Blood Count 7.3 x10^3/uL (4.0-11.0) Red Blood Count 4.53 x10^6/uL (4.30-5.70) Hemoglobin 13.1 g/dL (13.0-17.5) Hematocrit 40.1 % (39.0-53.0) Mean Corpuscular Volume 89 fL (79-100) Mean Corpuscular Hemoglobin 29 pg (25-35) Mean Corpuscular Hemoglobin Concent 33 g/dL (31-37) Red Cell Distribution Width 14.6 % (11.5-14.5) Platelet Count 315 x10^3/uL (140-400) Phosphorus Level 4.4 mg/dL (2.6-4.7) Laboratory Tests Test 09/27/19 03:55 White Blood Count 7.3 x10^3/uL (4.0-11.0) Red Blood Count 4.53 x10^6/uL (4.30-5.70) Hemoglobin 13.1 g/dL (13.0-17.5) Hematocrit 40.1 % (39.0-53.0) Mean Corpuscular Volume 89 fL (79-100) Mean Corpuscular Hemoglobin 29 pg (25-35) Mean Corpuscular Hemoglobin Concent 33 g/dL (31-37) Red Cell Distribution Width 14.6 % (11.5-14.5) Platelet Count 315 x10^3/uL (140-400) Sodium Level 143 mmol/L (136-145) Potassium Level 3.0 mmol/L (3.5-5.1) Chloride Level 102 mmol/L (98-107) Carbon Dioxide Level 31 mmol/L (21-32) Anion Gap 10 (6-14) Blood Urea Nitrogen 46 mg/dL (8-26) Creatinine 3.3 mg/dL (0.7-1.3) Estimated GFR (Cockcroft-Gault) 18.1 Glucose Level 94 mg/dL (70-99) Calcium Level 7.3 mg/dL (8.5-10.1) Phosphorus Level 4.4 mg/dL (2.6-4.7) Medications Current Medications Potassium Chloride (Klor-Con) 40 meq 1X ONCE PO Last administered on 09/25/19 21:00; Start 09/25/19 at 20:15; Stop 09/25/19 at 20:16; Status DC Ondansetron HCl (Zofran) 4 mg PRN Q4HRS PRN IV NAUSEA/VOMITING; Start 09/25/19 at 21:15 Acetaminophen (Tylenol) 650 mg PRN Q4HRS PRN PO TEMP OVER 100.4F OR MILD PAIN Last administered on 09/26/19at 23:13; Start 09/25/19 at 21:15 Docusate Sodium (Colace) 100 mg PRN BID PRN PO HARD STOOLS; Start 09/25/19 at 21:15 Loperamide HCl (Imodium) 2 mg TID PO Last administered on 09/27/19at 09:12; Start 09/25/19 at 21:45 Potassium Chloride (Klor-Con) 20 meq BIDWMEALS PO Last administered on 09/27/19at 09:12; Start 09/26/19 at 08:00 Sodium Bicarbonate (Sodium Bicarbonate) 1,300 mg TIDWMEALS PO Last administered on 09/27/19 09:12; Start 09/26/19 at 08:00 Tamsulosin HCl (Flomax) 0.4 mg DAILY PO Last administered on 09/27/19 09:13; Start 09/26/19 at 09:00 Tramadol HCl (Ultram) 50 mg PRN Q8HRS PRN PO PAIN Last administered on 09/26/19 15:12; Start 09/25/19 at 21:30 Calcium Carbonate/ Glycine (Oscal) 500 mg TIDWMEALS PO Last administered on 09/27/19 09:12; Start 09/26/19 at 08:00 Magnesium Oxide (Magnesium Oxide) 400 mg TID PO Last administered on 09/27/19 09:12; Start 09/26/19 at 09:00 Psyllium Hydrophilic Mucilloid (Metamucil Fiber Packet) 1 pkt QHS PO ; Start 09/25/19 at 21:30 Furosemide (Lasix) 40 mg BID92 IVP Last administered on 09/27/19at 09:13; Start 09/26/19 at 09:00 Heparin Sodium (Porcine) (Heparin Sodium) 5,000 unit Q8HRS SQ Last administered on 09/27/19at 06:36; Start 09/25/19 at 22:00 Mirtazapine (Remeron) 7.5 mg QHS PO Last administered on 09/26/19at 23:13; Start 09/26/19 at 21:00 Amlodipine Besylate (Norvasc) 5 mg DAILY PO Last administered on 09/27/19at 09 :12; Start 09/26/19 at 11:30 Active Scripts Active Calcium (Calcium Carbonate) 500 Mg Tab.chew 1 Tab PO TID 30 Days Sodium Bicarbonate 650 Mg Tablet 2 Tab PO TID 30 Days Potassium Chloride (Potassium Chloride) 20 Meq Tablet.er 20 Meq PO BID 30 Days Mag-Oxide (Magnesium Oxide) 200 Mg Tablet 1 Tab PO TID 30 Days Imodium A-D (Loperamide HCl) 2 Mg Capsule 2 Mg PO TID 30 Days Metamucil (Psyllium Husk) 0.52 Gm Capsule 1 Cap PO DAILY 30 Days Reported Tramadol Hcl 50 Mg Tablet 50 Mg PO PRN Q8HRS PRN Flomax (Tamsulosin Hcl) 0.4 Mg Cap.er.24h 1 Cap PO DAILY Vitals/I & O Vital Sign - Last 24 Hours 09/26/19 09/26/19 09/26/19 09/26/19 15:00 15:12 16:12 19:00 Temp 97.6 98.4 97.6 98.4 Pulse 55 78 Resp 18 18 18 B/P (MAP) 135/75 (95) 135/52 (79) Pulse Ox 94 97 O2 Delivery Nasal Cannula Nasal Cannula Nasal Cannula Room Air O2 Flow Rate 2.0 2.0 2.0 09/26/19 09/26/19 09/27/1920 20:00 23:02 03:02 07:39 Temp 97.5 97.1 97.6 97.5 97.1 97.6 Pulse 54 59 61 Resp 20 20 20 B/P (MAP) 143/62 (89) 98/68 (78) 116/71 (86) Pulse Ox 95 99 96 O2 Delivery Nasal Cannula Nasal Cannula Nasal Cannula Nasal Cannula O2 Flow Rate 2.0 09/27/19 09/27/19 09/27/19 08:45 09:12 11:37 Temp 97.6 97.6 Pulse 61 57 Resp 20 B/P (MAP) 116/71 143/78 (99) Pulse Ox 97 O2 Delivery Nasal Cannula Nasal Cannula O2 Flow Rate 2.0 Intake and Output 09/26/19 09/26/19 09/27/19 15:00 23:00 07:00 Output Total 1000 ml 750 ml Balance -1000 ml -750 ml VA SHAH MD September 27, 2019 12:34
--- NOTE | 2019-09-27 14:34 | NUR ---
SS following for discharge planning. SS reviewed pt chart and discussed with pt RN. Pt is from home with spouse and is currently requiring oxygen. Pt was previously on services with [facility], ; fax [phone]. Outpatient hemodialysis recommended. Pt undecided if he wants outpatient dialysis at this time. Per RN, pt to decide tomorrow. SS will continue to follow for discharge planning.
[2019-09-27 15:34] VITALS: BP 127/68
[2019-09-27 19:20] VITALS: BP 99/81
[2019-09-27] MEDS: MIRTAZAPINE 7.5 MG TABLET. PO SCH (21:08)
[2019-09-27] MEDS: traMADol 50 MG TABLET PO PRN (21:12)
[2019-09-27] MEDS: PSYLLIUM HUSK (SUGAR FREE) 1 PKT PACKET PO SCH (21:18)
[2019-09-27 23:36] VITALS: BP 121/74
[2019-09-28 03:31] VITALS: BP 148/79
[2019-09-28] MEDS: HEPARIN for SUB-Q USE 5,000 UNIT/ML VIAL. SQ SCH ×3 (06:09→21:27)
[2019-09-28 06:39] LABS: CALCIUM 7.2 mg/dL (8.5-10.1); CREATININE 3.6 mg/dL (0.7-1.3); GFR 16.4; POTASSIUM 3.1 mmol/L (3.5-5.1)
[2019-09-28 07:44] VITALS: BP 133/64
[2019-09-28] MEDS: SODIUM BICARBONATE 650 MG TABLET. PO SCH ×2 (08:35→11:32)
[2019-09-28] MEDS: LOPERAMIDE 2 MG CAPSULE PO SCH ×3 (08:35→21:00)
[2019-09-28] MEDS: CALCIUM CARBONATE 500 MG TABLET PO SCH ×3 (08:35→16:42)
[2019-09-28] MEDS: MAGNESIUM OXIDE 400 MG TABLET PO SCH ×3 (08:35→21:18)
[2019-09-28] MEDS: POTASSIUM CHLORIDE 20 MEQ TABLET.ER. PO SCH ×2 (08:35→16:42)
[2019-09-28] MEDS: TAMSULOSIN 0.4 MG CAP.ER.24H. PO SCH (08:35)
[2019-09-28] MEDS: FUROSEMIDE 40 MG/4 ML VIAL. IVP SCH (08:36)
[2019-09-28] MEDS: amLODIPine BESYLATE 5 MG TABLET PO SCH (08:36)
--- NOTE | 2019-09-28 09:21 | PDOC ---
SUBJECTIVE ROS Stable OBJECTIVE Vital Signs Vital Signs Date Time Temp Pulse Resp B/P (MAP) Pulse Ox O2 Delivery O2 Flow Rate FiO2 09/28/19 08:36 63 133/64 09/28/19 08:30 Nasal Cannula 2.0 09/28/19 07:44 98.1 18 94 98.1 I & 0 Intake and Output 09/28/19 06:59 Intake Total 880 ml Output Total 2975 ml Balance -2095 ml Intake Oral 880 ml Output Urine Total 1075 ml Stool Total 1900 ml PHYSICAL EXAM Physical Exam General: Alert, Oriented X3, HEENT: OM moist, On O2 by [place] Lungs: Other (Bibasilar crackles) Heart: S1S2, RRR, no thrills, no rubs, no gallops, no murmurs Abdomen: Normal bowel sounds, Soft, No tenderness, No hepatosplenomegaly, No masses Rectal Exam: not examined Extremities: No clubbing, No cyanosis, No edema, Normal pulses, No tenderness/swelling Skin: No rashes, No breakdown, No significant lesion Neuro: Normal speech, Strength at 5/5 X4 ext, Normal tone, Sensation intact, Cranial nerves 3-12 NL, Reflexes 2+ Psych/Mental Status: Mental status NL, Mood NL DIAGNOSIS/ASSESSMENT Assessment & Plan SUHAS - worsening renal function/Cardiorenal/Diuretics Supportive care, Strict I/O, avoid Nephrotoxins, Daily standing wt, Recommend switching to PO Diuretics, Defer to cardiology Pt refusing HD, states he wants to go home and discuss with his HypoKalemia- replace as indicated Stop NaHco3 CKD Stage 4 - Cr 2.4 in 2018 , used to follow with Dr. Amaya, did not keep fu appts Was Hospitalized in July 2019, he venecia not make fu appt with nephrology as advised Acute on Chronic Diastolic CHF- Currently on IV Lasix BID, Cardiology managing Ac Hypoxic Resp failure- On O2 by [place] Colon Ca in Remission s/p Diverting Colostomy Right renal cyst. Probable left renal cyst - CT scan in Jun 2019 Radiology recommended a follow-up sonogram of both kidneys in 6 months to ensure stability of the left renal lesion. Defer to Primary BPH- On Flomax COMMENT/RELEVANT DATA Meds Current Medications Medications (Trade) Dose Ordered Sig/Richard Start Time Stop Time Status Last Admin Dose Admin Acetaminophen (Tylenol) 650 mg PRN Q4HRS PRN 09/25/19 21:15 09/26/19 23:13 650 MG Amlodipine Besylate (Norvasc) 5 mg DAILY 09/26/19 11:30 09/28/19 08:36 5 MG Calcium Carbonate/ Glycine (Oscal) 500 mg TIDWMEALS 09/26/19 08:00 09/28/19 08:35 500 MG Docusate Sodium (Colace) 100 mg PRN BID PRN 09/25/19 21:15 Furosemide (Lasix) 40 mg BID92 09/26/19 09:00 09/28/19 08:36 40 MG Heparin Sodium (Porcine) (Heparin Sodium) 5,000 unit Q8HRS 09/25/19 22:00 09/28/19 06:09 5,000 UNIT Loperamide HCl (Imodium) 2 mg TID 09/25/19 21:45 09/28/19 08:35 2 MG Magnesium Oxide (Magnesium Oxide) 400 mg TID 09/26/19 09:00 09/28/19 08:35 400 MG Mirtazapine (Remeron) 7.5 mg QHS 09/26/19 21:00 09/27/19 21:08 7.5 MG Ondansetron HCl (Zofran) 4 mg PRN Q4HRS PRN 09/25/19 21:15 Potassium Chloride (Klor-Con) 20 meq BIDWMEALS 09/26/19 08:00 09/28/19 08:35 20 MEQ Psyllium Hydrophilic Mucilloid (Metamucil Fiber Packet) 1 pkt QHS 09/25/19 21:30 Sodium Bicarbonate (Sodium Bicarbonate) 1,300 mg TIDWMEALS 09/26/19 08:00 09/28/19 08:35 1,300 MG Tamsulosin HCl (Flomax) 0.4 mg DAILY 09/26/19 09:00 09/28/19 08:35 0.4 MG Tramadol HCl (Ultram) 50 mg PRN Q8HRS PRN 09/25/19 21:30 09/27/19 21:12 50 MG Lab Laboratory Tests Test 09/28/19 05:10 Sodium Level 143 mmol/L (136-145) Potassium Level 3.1 mmol/L (3.5-5.1) Chloride Level 102 mmol/L (98-107) Carbon Dioxide Level 32 mmol/L (21-32) Anion Gap 9 (6-14) Blood Urea Nitrogen 48 mg/dL (8-26) Creatinine 3.6 mg/dL (0.7-1.3) Estimated GFR (Cockcroft-Gault) 16.4 Glucose Level 96 mg/dL (70-99) Calcium Level 7.2 mg/dL (8.5-10.1) Results All relevant outside records, renal labs, imaging studies, telemetry/EKG's were reviewed. NOÉ NEGRETE MD September 28, 2019 09:21
--- NOTE | 2019-09-28 09:34 | PDOC ---
JACKIE HEARN FRONT OFFICE SPEC 09/28/19 0934: CARDIO Progress Notes Date and Time Date of Service 09/28/2019 Time of Evaluation 0910 Subjective Subjective: No Chest Pain, No shortness of breath, No Palpitations Vitals Vitals Vital Signs Date Time Temp Pulse Resp B/P (MAP) Pulse Ox O2 Delivery O2 Flow Rate FiO2 09/28/19 08:36 63 133/64 09/28/19 08:30 Nasal Cannula 2.0 09/28/19 07:44 98.1 18 94 98.1 Weight Weight [ ] Input and Output Intake and Output Intake and Output 09/28/19 07:00 Intake Total 880 ml Output Total 2975 ml Balance -2095 ml Intake Oral 880 ml Output Urine Total 1075 ml Stool Total 1900 ml Laboratory Labs Laboratory Tests Test 09/28/19 05:10 Sodium Level 143 mmol/L (136-145) Potassium Level 3.1 mmol/L (3.5-5.1) Chloride Level 102 mmol/L (98-107) Carbon Dioxide Level 32 mmol/L (21-32) Anion Gap 9 (6-14) Blood Urea Nitrogen 48 mg/dL (8-26) Creatinine 3.6 mg/dL (0.7-1.3) Estimated GFR (Cockcroft-Gault) 16.4 Glucose Level 96 mg/dL (70-99) Calcium Level 7.2 mg/dL (8.5-10.1) Physical Exam HEENT: Neck Supple W Full Motion Chest: Symmetric LUNGS: Other (diminished ) Heart: S1S2, irregularly irregular (AFIB, rate controlled ) Abdomen: Soft N/T Extremities: No Edema Neurology: alert, oriented, follow commands Assessment Assessment 1. Acute on chronic diastolic CHF; Recent echo with preserved LV systolic function.compensated 2. Mild troponin elevation; peak 0.09. Most probably type II, demand ischemia. CP free. 3. PAFIB; presently AFIB rate controlled. initially with WAP 40s metabolic issues contributing..mean near 60. No pauses. Not on rate control therapy 4. 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 Hypertension; controlled 6. Colon CA s/p colectomy with ileostomy 7. Hypokalemia Recommendations 1. Defer diuresis adjustment to nephrology. May need HD, pt remains undecided 2. Replace K 3. Consider further ischemic evaluation as an outpt for further risk stratification 4. Likely poor candidate fo long-term OAC. Low dose eliquis is an option if pt does get started on HD but notable noncompliance may preclude its use. Will discuss further with pt if he would consider pending plans for HD 5. Allergy to ASA. Consider to referral for YAA closure device. 6. Consider outpatient event monitor to guide therapy and any potential need for PPM 7. Supportive care LEONARDO CHOU MD 09/28/19 6295: CARDIO Progress Notes Plan Plan Patient seen and examined. Agree with above nurse practitioner note. Supportive care. Patient was discussing possibility of dialysis initiation. If he plans for dialysis then we will obtain a right and left heart catheterization otherwise outpatient ischemic evaluation. JACKIE HEARN APRN September 28, 2019 09:34 LEONARDO CHOU MD September 28, 2019 16:55
--- NOTE | 2019-09-28 10:31 | PDOC ---
PROGRESS NOTES Chief Complaint Chief Complaint Assessment/Plan A/P: Acute on chronic diastolic (congestive) heart failure - will continue diuresis with IV lasix. Consult cardiology. Cont BB, statin, ASA. Cr. precludes MEDINA/ARB therapy. SUHAS on Chronic renal failure, stage 4 (severe) - likely vasomotor nephropathy, cardiorenal. Considering hemodialysis at this point Bilateral pleural effusions - Will diurese, likely CHF related. Acute hypoxic respiratory failure - likely related to above. Will diurese, wean O2 as tolerated Colorectal cancer in remission - s/p diverting ileostomy. Stoma care ordered Elevated troponin - likely demand ischemia given acute CHF exacerbation Loss of appetite - will start on remeron Insomnia - as above FEN - Renal diet PPX - heparin FULL CODE Dispo - inpatient for CHF exacerbation 2 midnights. History of Present Illness History of Present Illness No acute events reported overnight, case discussed with nursing staff patient in no acute distress no complaints during my visit patient had multiple questions regarding starting hemodialysis. I have tried to explain to the best of my abilities and I have reassured him that our nephrology trousseau consultant will discuss f urther details if need be. Vitals Vitals Vital Signs Date Time Temp Pulse Resp B/P (MAP) Pulse Ox O2 Delivery O2 Flow Rate FiO2 09/28/19 08:36 63 133/64 09/28/19 08:30 Nasal Cannula 2.0 09/28/19 07:44 98.1 18 94 98.1 Physical Exam Physical Exam General: Alert, Oriented X3, Cooperative, moderate distress HEENT: Atraumatic, PERRLA, EOMI, Mucous membr. moist/pink Lungs: Other (Bibasilar crackles) Heart: S1S2, RRR, no thrills, no rubs, no gallops, no murmurs Abdomen: Normal bowel sounds, Soft, No tenderness, No hepatosplenomegaly, No masses Rectal Exam: not examined Extremities: No clubbing, No cyanosis, No edema, Normal pulses, No t enderness/swelling Skin: No rashes, No breakdown, No significant lesion Neuro: Normal speech, Strength at 5/5 X4 ext, Normal tone, Sensation intact, Cranial nerves 3-12 NL, Reflexes 2+ Psych/Mental Status: Mental status NL, Mood NL General: Alert, Oriented X3, No acute distress Heart: Regular rate Abdomen: Normal bowel sounds, Soft, No tenderness Extremities: No cyanosis Skin: No rashes, No breakdown, No significant lesion Labs LABS Laboratory Tests Test 09/28/19 05:10 Sodium Level 143 mmol/L (136-145) Potassium Level 3.1 mmol/L (3.5-5.1) Chloride Level 102 mmol/L (98-107) Carbon Dioxide Level 32 mmol/L (21-32) Anion Gap 9 (6-14) Blood Urea Nitrogen 48 mg/dL (8-26) Creatinine 3.6 mg/dL (0.7-1.3) Estimated GFR (Cockcroft-Gault) 16.4 Glucose Level 96 mg/dL (70-99) Calcium Level 7.2 mg/dL (8.5-10.1) Comment Review of Relevant I have reviewed the following items salome (where applicable) has been applied. Labs Laboratory Tests Test 09/27/19 03:55 09/28/19 05:10 White Blood Count 7.3 x10^3/uL (4.0-11.0) Red Blood Count 4.53 x10^6/uL (4.30-5.70) Hemoglobin 13.1 g/dL (13.0-17.5) Hematocrit 40.1 % (39.0-53.0) Mean Corpuscular Volume 89 fL (79-100) Mean Corpuscular Hemoglobin 29 pg (25-35) Mean Corpuscular Hemoglobin Concent 33 g/dL (31-37) Red Cell Distribution Width 14.6 % (11.5-14.5) Platelet Count 315 x10^3/uL (140-400) Sodium Level 143 mmol/L (136-145) 143 mmol/L (136-145) Potassium Level 3.0 mmol/L (3.5-5.1) 3.1 mmol/L (3.5-5.1) Chloride Level 102 mmol/L (98-107) 102 mmol/L (98-107) Carbon Dioxide Level 31 mmol/L (21-32) 32 mmol/L (21-32) Anion Gap 10 (6-14) 9 (6-14) Blood Urea Nitrogen 46 mg/dL (8-26) 48 mg/dL (8-26) Creatinine 3.3 mg/dL (0.7-1.3) 3.6 mg/dL (0.7-1.3) Estimated GFR (Cockcroft-Gault) 18.1 16.4 Glucose Level 94 mg/dL (70-99) 96 mg/dL (70-99) Calcium Level 7.3 mg/dL (8.5-10.1) 7.2 mg/dL (8.5-10.1) Phosphorus Level 4.4 mg/dL (2.6-4.7) Magnesium Level 2.1 mg/dL (1.8-2.4) Laboratory Tests Test 09/28/19 05:10 Sodium Level 143 mmol/L (136-145) Potassium Level 3.1 mmol/L (3.5-5.1) Chloride Level 102 mmol/L (98-107) Carbon Dioxide Level 32 mmol/L (21-32) Anion Gap 9 (6-14) Blood Urea Nitrogen 48 mg/dL (8-26) Creatinine 3.6 mg/dL (0.7-1.3) Estimated GFR (Cockcroft-Gault) 16.4 Glucose Level 96 mg/dL (70-99) Calcium Level 7.2 mg/dL (8.5-10.1) Medications Current Medications Potassium Chloride (Klor-Con) 40 meq 1X ONCE PO Last administered on 09/25/19at 21:00; Start 09/25/19 at 20:15; Stop 09/25/19 at 20:16; Status DC Ondansetron HCl (Zofran) 4 mg PRN Q4HRS PRN IV NAUSEA/VOMITING; Start 09/25/19 at 21:15 Acetaminophen (Tylenol) 650 mg PRN Q4HRS PRN PO TEMP OVER 100.4F OR MILD PAIN Last administered on 09/26/19at 23:13; Start 09/25/19 at 21:15 Docusate Sodium (Colace) 100 mg PRN BID PRN PO HARD STOOLS; Start 09/25/19 at 21:15 Loperamide HCl (Imodium) 2 mg TID PO Last administered on 09/28/19at 08:35; Start 09/25/19 at 21:45 Potassium Chloride (Klor-Con) 20 meq BIDWMEALS PO Last administered on 09/28/19at 08:35; Start 09/26/19 at 08:00 Sodium Bicarbonate (Sodium Bicarbonate) 1,300 mg TIDWMEALS PO Last administered on 09/28/19 08:35; Start 09/26/19 at 08:00 Tamsulosin HCl (Flomax) 0.4 mg DAILY PO Last administered on 09/28/19 08:35; Start 09/26/19 at 09:00 Tramadol HCl (Ultram) 50 mg PRN Q8HRS PRN PO MODERATE PAIN, SEVERE PAIN Last administered on 09/27/19 21:12; Start 09/25/19 at 21:30 Calcium Carbonate/ Glycine (Oscal) 500 mg TIDWMEALS PO Last administered on 09/28/19 08:35; Start 09/26/19 at 08:00 Magnesium Oxide (Magnesium Oxide) 400 mg TID PO Last administered on 09/28/19 08:35; Start 09/26/19 at 09:00 Psyllium Hydrophilic Mucilloid (Metamucil Fiber Packet) 1 pkt QHS PO ; Start 09/25/19 at 21:30 Furosemide (Lasix) 40 mg BID92 IVP Last administered on 09/28/19at 08:36; Start 09/26/19 at 09:00 Heparin Sodium (Porcine) (Heparin Sodium) 5,000 unit Q8HRS SQ Last administered on 09/28/19 06:09; Start 09/25/19 at 22:00 Mirtazapine (Remeron) 7.5 mg QHS PO Last administered on 09/27/19 21:08; Start 09/26/19 at 21:00 Amlodipine Besylate (Norvasc) 5 mg DAILY PO Last administered on 09/28/19at 0 8:36; Start 09/26/19 at 11:30 Active Scripts Active Calcium (Calcium Carbonate) 500 Mg Tab.chew 1 Tab PO TID 30 Days Sodium Bicarbonate 650 Mg Tablet 2 Tab PO TID 30 Days Potassium Chloride (Potassium Chloride) 20 Meq Tablet.er 20 Meq PO BID 30 Days Mag-Oxide (Magnesium Oxide) 200 Mg Tablet 1 Tab PO TID 30 Days Imodium A-D (Loperamide HCl) 2 Mg Capsule 2 Mg PO TID 30 Days Metamucil (Psyllium Husk) 0.52 Gm Capsule 1 Cap PO DAILY 30 Days Reported Tramadol Hcl 50 Mg Tablet 50 Mg PO PRN Q8HRS PRN Flomax (Tamsulosin Hcl) 0.4 Mg Cap.er.24h 1 Cap PO DAILY Vitals/I & O Vital Sign - Last 24 Hours 09/27/19 09/27/19 09/27/19 09/27/19 11:37 15:34 19:20 20:00 Temp 97.6 97.6 98.1 97.6 97.6 98.1 Pulse 57 62 63 Resp 20 B/P (MAP) 143/78 (99) 127/68 (87) 99/81 (87) Pulse Ox 97 94 97 O2 Delivery Nasal Cannula Nasal Cannula Nasal Cannula Nasal Cannula O2 Flow Rate 2.0 2.0 2.0 09/27/19 09/28/19 09/28/19 09/28/19 23:36 03:31 07:44 08:30 Temp 97.9 98.0 98.1 97.9 98.0 98.1 Pulse 78 57 63 Resp B/P (MAP) 121/74 (90) 148/79 (102) 133/64 (87) Pulse Ox 98 97 94 O2 Delivery Nasal Cannula Nasal Cannula Nasal Cannula Nasal Cannula O2 Flow Rate 2.0 2.0 2.0 2.0 09/28/19 08:36 Pulse 63 B/P (MAP) 133/64 Intake and Output 09/27/19 09/27/19 09/28/19 15:00 23:00 07:00 Intake Total 500 ml 380 ml Output Total 1225 ml 400 ml 1350 ml Balance -725 ml -20 ml -1350 ml Nutrition Consultation Dietary Evaluation: Recommendations by RD: Dietary education by RD, Increase Calorie Intake, Protein supplementation Comments: discussed renal diet with pt offer renal oral supplements - Nepro when po intake is < 50% and or for extra protein if pt starts HD Expected Outcomes/Goals: to meet >75% est nutr needs Malnutrition Findings: Food and Nutrition Intake (Mod: <75% est energy req 7days Weight Status: Appropriate [facility] SHAH MD September 28, 2019 10:31
[2019-09-28 11:01] VITALS: BP 109/67
[2019-09-28 11:10] LABS: CHOLESTEROL/HDL RATIO 1.8
--- NOTE | 2019-09-28 12:11 | EKG ---
[facility] [address] [place] [address] Test Date: 2019-09-28 Test Time: 12:08:13 Pat Name: JOELLE VANG Department: Room: [facility] Gender: M Behavioral Health Case Manager: : 1940 Requested By: JACKIE HEARN Order Number: [id number] Reading MD: Ananth Mccauley Measurements Intervals Fisher Rate: 67 P: -36 MT: 326 QRS: -37 QRSD: 118 T: 144 QT: 498 QTc: 530 Interpretive Statements SINUS RHYTHM PROLONGED MT INTERVAL ABNORMAL LEFT AXIS DEVIATION LEFT ANTERIOR FASCICULAR BLOCK LVH WITH REPOLARIZATION ABNORMALITY PROLONGED QT ABNORMAL ECG Electronically Signed On 09-29-2019 8:05:40 CDT by Ananth Mccauley
--- NOTE | 2019-09-28 14:08 | NUR ---
SS following up with discharge planning. SS reviewed pt chart and discussed with pt RN. Pt met with Dr. De La Vega this morning and is currently refusing dialysis. Pt requesting to speak with family to discuss further. Pt was current on services with [facility], ; fax [phone]. Pt notified nurse navigator, Deepti, from [facility] this afternoon that he will probably do dialysis. Pt is currently requiring oxygen. SS will continue to follow for discharge planning.
[2019-09-28 15:05] VITALS: BP 121/68
[2019-09-28 19:58] VITALS: BP 131/56
[2019-09-28] MEDS: PSYLLIUM HUSK (SUGAR FREE) 1 PKT PACKET PO SCH (21:00)
[2019-09-28] MEDS: MIRTAZAPINE 7.5 MG TABLET. PO SCH (21:18)
[2019-09-28 23:08] VITALS: BP 129/79
[2019-09-29 03:00] VITALS: BP_SYST 140
[2019-09-29] MEDS: HEPARIN for SUB-Q USE 5,000 UNIT/ML VIAL. SQ SCH ×3 (05:40→21:44)
[2019-09-29 06:59] LABS: CALCIUM 6.8 mg/dL (8.5-10.1); CREATININE 3.9 mg/dL (0.7-1.3); GFR 14.9; POTASSIUM 3.3 mmol/L (3.5-5.1)
[2019-09-29 07:51] VITALS: BP 124/61
--- NOTE | 2019-09-29 09:58 | PDOC ---
SUBJECTIVE ROS Somnolent this am OBJECTIVE Vital Signs Vital Signs Date Time Temp Pulse Resp B/P (MAP) Pulse Ox O2 Delivery O2 Flow Rate FiO2 09/29/19 07:51 97.8 52 17 124/61 (82) 97 Nasal Cannula 2.0 97.8 I & 0 Intake and Output 09/29/19 07:00 Intake Total 570 ml Output Total 1150 ml Balance -580 ml Intake Oral 570 ml Output Urine Total 200 ml Stool Total 950 ml # Voids 2 # Bowel Movements 1 PHYSICAL EXAM Physical Exam General: NAD, more sleepy HEENT: OM moist, On O2 by NC Lungs: Other (Bibasilar crackles) Heart: S1S2, RRR, n Abdomen: Soft, Extremities:No edema, Skin: No rashes, Neuro: Grossly normal DIAGNOSIS/ASSESSMENT Assessment & Plan SUHAS - worsening renal function/Cardiorenal/Diuretics I had a long discussion about his options/Choices with him and his daughter in the past 2 days , Pt wants to go ahead with [facility] Will need Tunneled HDC placement and SW Consult for OP chair time , Samson RN Supportive care, Strict I/O, avoid Nephrotoxins, HypoKalemia- K Can be adjusted in Dialysate NaHco3 dced yesterday CKD Stage 4 - Cr 2.4 in 2018 , used to follow with Dr. Amaya, did not keep fu appts Was Hospitalized in July 2019, he venecia not make fu appt with nephrology as advised Acute on Chronic Diastolic CHF- switched to PO lasix Ac Hypoxic Resp failure- On O2 by NC Colon Ca in Remission s/p Diverting Colostomy Right renal cyst. Probable left renal cyst - CT scan in Jun 2019 Radiology recommended a follow-up sonogram of both kidneys in 6 months to ensure stability of the left renal lesion. Defer to Primary BPH- On Flomax COMMENT/RELEVANT DATA Meds Current Medications Medications (Trade) Dose Ordered Sig/Richard Start Time Stop Time Status Last Admin Dose Admin Acetaminophen (Tylenol) 650 mg PRN Q4HRS PRN 09/25/19 21:15 09/26/19 23:13 650 MG Amlodipine Besylate (Norvasc) 5 mg DAILY 09/26/19 11:30 09/28/19 08:36 5 MG Calcium Carbonate/ Glycine (Oscal) 500 mg TIDWMEALS 09/26/19 08:00 09/28/19 16:42 500 MG Docusate Sodium (Colace) 100 mg PRN BID PRN 09/25/19 21:15 Furosemide (Lasix) 40 mg BID 09/29/19 09:00 Heparin Sodium (Porcine) (Heparin Sodium) 5,000 unit Q8HRS 09/25/19 22:00 09/29/19 05:40 5,000 UNIT Loperamide HCl (Imodium) 2 mg TID 09/25/19 21:45 09/28/19 13:27 2 MG Magnesium Oxide (Magnesium Oxide) 400 mg TID 09/26/19 09:00 09/28/19 21:18 400 MG Mirtazapine (Remeron) 7.5 mg QHS 09/26/19 21:00 09/28/19 21:18 7.5 MG Ondansetron HCl (Zofran) 4 mg PRN Q4HRS PRN 09/25/19 21:15 Potassium Chloride (Klor-Con) 20 meq BIDWMEALS 09/26/19 08:00 09/28/19 16:42 20 MEQ Psyllium Hydrophilic Mucilloid (Metamucil Fiber Packet) 1 pkt QHS 09/25/19 21:30 Sodium Bicarbonate (Sodium Bicarbonate) 1,300 mg TIDWMEALS 09/26/19 08:00 09/28/19 11:52 DC 09/28/19 11:32 1,300 MG Tamsulosin HCl (Flomax) 0.4 mg DAILY 09/26/19 09:00 09/28/19 08:35 0.4 MG Tramadol HCl (Ultram) 50 mg PRN Q8HRS PRN 09/25/19 21:30 09/27/19 21:12 50 MG Lab Laboratory Tests Test 09/29/19 05:00 Sodium Level 142 mmol/L (136-145) Potassium Level 3.3 mmol/L (3.5-5.1) Chloride Level 103 mmol/L (98-107) Carbon Dioxide Level 30 mmol/L (21-32) Anion Gap 9 (6-14) Blood Urea Nitrogen 51 mg/dL (8-26) Creatinine 3.9 mg/dL (0.7-1.3) Estimated GFR (Cockcroft-Gault) 14.9 Glucose Level 83 mg/dL (70-99) Calcium Level 6.8 mg/dL (8.5-10.1) Results All relevant outside records, renal labs, imaging studies, telemetry/EKG's were reviewed. NOÉ NEGRETE MD September 29, 2019 09:58
[2019-09-29 10:03] LABS: PROTHROMBIN TIME PATIENT 13.8 SEC (11.7-14.0)
[2019-09-29] MEDS: POTASSIUM CHLORIDE 20 MEQ TABLET.ER. PO SCH ×2 (10:08→17:00)
[2019-09-29] MEDS: MAGNESIUM OXIDE 400 MG TABLET PO SCH ×3 (10:09→21:42)
[2019-09-29] MEDS: FUROSEMIDE 40 MG TABLET. PO SCH ×2 (10:09→21:42)
[2019-09-29] MEDS: CALCIUM CARBONATE 500 MG TABLET PO SCH ×3 (10:09→17:00)
[2019-09-29] MEDS: LOPERAMIDE 2 MG CAPSULE PO SCH ×3 (10:09→21:42)
[2019-09-29] MEDS: TAMSULOSIN 0.4 MG CAP.ER.24H. PO SCH (10:09)
[2019-09-29] MEDS: amLODIPine BESYLATE 5 MG TABLET PO SCH (10:09)
[2019-09-29 10:56] VITALS: BP 129/73
[2019-09-29] MEDS ORDERED: POTASSIUM CHLORIDE 20 MEQ TABLET.ER. PO ONE (12:00)
--- NOTE | 2019-09-29 12:03 | PDOC ---
JACKIE HEARN LINING STUFFER 09/29/19 1203: CARDIO Progress Notes Date and Time Date of Service 09/29/2019 Time of Evaluation 0930 Subjective Subjective: No Chest Pain, No shortness of breath, No Palpitations Vitals Vitals Vital Signs Date Time Temp Pulse Resp B/P (MAP) Pulse Ox O2 Delivery O2 Flow Rate FiO2 09/29/19 10:56 97.7 54 17 129/73 (91) 99 Nasal Cannula 2.0 97.7 Weight Weight [ ] Input and Output Intake and Output Intake and Output 09/29/19 07:00 Intake Total 570 ml Output Total 1150 ml Balance -580 ml Intake Oral 570 ml Output Urine Total 200 ml Stool Total 950 ml # Voids 2 # Bowel Movements 1 Laboratory Labs Laboratory Tests Test 09/29/19 05:00 Prothrombin Time 13.8 SEC (11.7-14.0) Prothromb Time International Ratio 1.1 (0.8-1.1) Sodium Level 142 mmol/L (136-145) Potassium Level 3.3 mmol/L (3.5-5.1) Chloride Level 103 mmol/L (98-107) Carbon Dioxide Level 30 mmol/L (21-32) Anion Gap 9 (6-14) Blood Urea Nitrogen 51 mg/dL (8-26) Creatinine 3.9 mg/dL (0.7-1.3) Estimated GFR (Cockcroft-Gault) 14.9 Glucose Level 83 mg/dL (70-99) Calcium Level 6.8 mg/dL (8.5-10.1) Physical Exam HEENT: Neck Supple W Full Motion Chest: Symmetric LUNGS: Other (diminished ) Heart: other (Bradycardia with WAP) Abdomen: Soft N/T Extremities: No Edema Neurology: alert, oriented, follow commands Assessment Assessment 1. Acute on chronic diastolic CHF; Recent echo with preserved LV systolic function.compensated 2. Mild troponin elevation; peak 0.09. Most probably type II, demand ischemia. CP free. 3. PAFIB; Further noted with appears to be WAP rather than AFIB and at times in the 40s but no pauses. 4. Arrhythmia; occasional PSVT with abberancy 4. 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 Hypertension; controlled 6. Colon CA s/p colectomy with ileostomy 7. Hypokalemia Recommendations 1. Awaiting HD cath placement. Replace Hui Tijerina per nephrology 2. MCOT to further discern AFIB burden and other arrhythmias and evaluate need for NOAC or PPM 3. Will consider for RHC/LHC post HD pending clinical trend. 4. Consider for [facility] referral 5. No AV emelina blocking agents. Supportive care LEONARDO CHOU MD 09/29/19 1721: CARDIO Progress Notes Plan Plan Patient seen and examined. Agree with above nurse practitioner note. Telemetry reviewed. There is concern for underlying A. fib versus third-degree heart block over the last 24 hours. We will reassess tomorrow to determine any further indications for intervention. Supportive care. JACKIE HEARN APRN September 29, 2019 12:03 LEONARDO CHOU MD September 29, 2019 17:21
--- NOTE | 2019-09-29 12:18 | NUR ---
SS following up with discharge planning. SS reviewed pt chart and discussed with pt RN. Pt now agreeable to start hemodialysis and will need outpatient hemodialysis set up. Serology labs completed. Tunneled cath ordered. SS notified pt's RN that pt will need chest x-ray for dialysis referral. SS currently needed tunneled cath report, chest x-ray, and flow sheet from first dialysis treatment to complete referral. SS will continue to follow for discharge planning.
--- NOTE | 2019-09-29 12:22 | NUR ---
SS following up with discharge planning. Pt will also need COVID19 test per [facility]. Pt's RN notified. SS will continue to follow.
[2019-09-29] MEDS ORDERED: LIDOCAINE 1%/EPI 1:100,000 20 ML VIAL. ONE (13:21)
[2019-09-29] MEDS ORDERED: MIDAZOLAM HCL/PF 2 MG/2 ML VIAL. ONE (13:34)
[2019-09-29] MEDS ORDERED: fentaNYL PF VIAL 100 MCG/2 ML VIAL ONE (13:35)
[2019-09-29] MEDS ORDERED: ceFAZolin SODIUM IV Push 1 GM VIAL. IVP ONE ×2 (13:39→14:15)
--- NOTE | 2019-09-29 13:49 | PDOC ---
PROGRESS NOTES Chief Complaint Chief Complaint Assessment/Plan A/P: Acute on chronic diastolic (congestive) heart failure - will continue diuresis with IV lasix. Cont BB, statin, ASA. Cr. precludes MEDINA/ARB therapy. SUHAS on Chronic renal failure, stage 4 (severe) - likely vasomotor nephropathy, cardiorenal. Patient will have tunneled catheter placed today, dialysis as per nephrology business development consultant Bilateral pleural effusions - Will diurese, likely CHF related. Acute hypoxic respiratory failure - likely related to above. Will diurese, wean O2 as tolerated Colorectal cancer in remission - s/p diverting ileostomy. Stoma care ordered Elevated troponin - likely demand ischemia given acute CHF exacerbation Loss of appetite - will start on remeron Insomnia - as above FEN - Renal diet PPX - heparin FULL CODE Dispo - inpatient for CHF exacerbation 2 midnights. History of Present Illness History of Present Illness Patient seems little bit more lethargic today compared to yesterday and he even expresses that he feels more tired compared to yesterday. Discussed again the importance of dialysis and he is certainly considering starting dialysis given the turn of events. He is scheduled to have a tunnel catheter later in the day Vitals Vitals Vital Signs Date Time Temp Pulse Resp B/P (MAP) Pulse Ox O2 Delivery O2 Flow Rate FiO2 09/29/19 10:56 97.7 54 17 129/73 (91) 99 Nasal Cannula 2.0 97.7 Physical Exam Physical Exam General: Alert, Oriented X3, Cooperative, moderate distress HEENT: Atraumatic, PERRLA, EOMI, Mucous membr. moist/pink Lungs: Other (Bibasilar crackles) Heart: S1S2, RRR, no thrills, no rubs, no gallops, no murmurs Abdomen: Normal bowel sounds, Soft, No tenderness, No hepatosplenomegaly, No masses Rectal Exam: not examined Extremities: No clubbing, No cyanosis, No edema, Normal pulses, No tenderness/swelling Skin: No rashes, No breakdown, No significant lesion Neuro: Normal speech, Strength at 5/5 X4 ext, Normal tone, Sensation intact, Cranial nerves 3-12 NL, Reflexes 2+ Psych/Mental Status: Mental status NL, Mood NL General: Alert, Oriented X3, No acute distress Heart: Regular rate Abdomen: Normal bowel sounds, Soft, No tenderness Extremities: No cyanosis Skin: No rashes, No breakdown, No significant lesion Labs LABS Laboratory Tests Test 09/29/19 05:00 Prothrombin Time 13.8 SEC (11.7-14.0) Prothromb Time International Ratio 1.1 (0.8-1.1) Sodium Level 142 mmol/L (136-145) Potassium Level 3.3 mmol/L (3.5-5.1) Chloride Level 103 mmol/L (98-107) Carbon Dioxide Level 30 mmol/L (21-32) Anion Gap 9 (6-14) Blood Urea Nitrogen 51 mg/dL (8-26) Creatinine 3.9 mg/dL (0.7-1.3) Estimated GFR (Cockcroft-Gault) 14.9 Glucose Level 83 mg/dL (70-99) Calcium Level 6.8 mg/dL (8.5-10.1) Comment Review of Relevant I have reviewed the following items salome (where applicable) has been applied. Labs Laboratory Tests Test 09/28/19 05:10 09/29/19 05:00 Sodium Level 143 mmol/L (136-145) 142 mmol/L (136-145) Potassium Level 3.1 mmol/L (3.5-5.1) 3.3 mmol/L (3.5-5.1) Chloride Level 102 mmol/L (98-107) 103 mmol/L (98-107) Carbon Dioxide Level 32 mmol/L (21-32) 30 mmol/L (21-32) Anion Gap 9 (6-14) 9 (6-14) Blood Urea Nitrogen 48 mg/dL (8-26) 51 mg/dL (8-26) Creatinine 3.6 mg/dL (0.7-1.3) 3.9 mg/dL (0.7-1.3) Estimated GFR (Cockcroft-Gault) 16.4 14.9 Glucose Level 96 mg/dL (70-99) 83 mg/dL (70-99) Calcium Level 7.2 mg/dL (8.5-10.1) 6.8 mg/dL (8.5-10.1) Triglycerides Level 70 mg/dL (0-150) Cholesterol Level 135 mg/dL (0-200) LDL Cholesterol, Calculated 48 mg/dL (0-100) VLDL Cholesterol, Calculated 14 mg/dL (0-40) Non-HDL Cholesterol Calculated 62 mg/dL (0-129) HDL Cholesterol 73 mg/dL (40-60) Cholesterol/HDL Ratio 1.8 Hepatitis B Surface Antigen Nonreactive (Nonreactive) Hepatitis B Surface Antibody Nonreactive Hepatitis B Core Total Antibody Nonreactive (Nonreactive) Prothrombin Time 13.8 SEC (11.7-14.0) Prothromb Time International Ratio 1.1 (0.8-1.1) Laboratory Tests Test 09/29/19 05:00 Prothrombin Time 13.8 SEC (11.7-14.0) Prothromb Time International Ratio 1.1 (0.8-1.1) Sodium Level 142 mmol/L (136-145) Potassium Level 3.3 mmol/L (3.5-5.1) Chloride Level 103 mmol/L (98-107) Carbon Dioxide Level 30 mmol/L (21-32) Anion Gap 9 (6-14) Blood Urea Nitrogen 51 mg/dL (8-26) Creatinine 3.9 mg/dL (0.7-1.3) Estimated GFR (Cockcroft-Gault) 14.9 Glucose Level 83 mg/dL (70-99) Calcium Level 6.8 mg/dL (8.5-10.1) Medications Current Medications Potassium Chloride (Klor-Con) 40 meq 1X ONCE PO Last administered on 09/25/19at 21:00; Start 09/25/19 at 20:15; Stop 09/25/19 at 20:16; Status DC Ondansetron HCl (Zofran) 4 mg PRN Q4HRS PRN IV NAUSEA/VOMITING; Start 09/25/19 at 21:15 Acetaminophen (Tylenol) 650 mg PRN Q4HRS PRN PO TEMP OVER 100.4F OR MILD PAIN Last administered on 09/26/19at 23:13; Start 09/25/19 at 21:15 Docusate Sodium (Colace) 100 mg PRN BID PRN PO HARD STOOLS; Start 09/25/19 at 21:15 Loperamide HCl (Imodium) 2 mg TID PO Last administered on 09/29/19at 10:09; Start 09/25/19 at 21:45 Potassium Chloride (Klor-Con) 20 meq BIDWMEALS PO Last administered on at 10:08; Start 09/26/19 at 08:00 Sodium Bicarbonate (Sodium Bicarbonate) 1,300 mg TIDWMEALS PO Last administered on 09/28/19 11:32; Start 09/26/19 at 08:00; Stop 09/28/19 at 11:52; Status DC Tamsulosin HCl (Flomax) 0.4 mg DAILY PO Last administered on 09/29/19 10:09; Start 09/26/19 at 09:00 Tramadol HCl (Ultram) 50 mg PRN Q8HRS PRN PO MODERATE PAIN, SEVERE PAIN Last administered on 09/27/19at 21:12; Start 09/25/19 at 21:30 Calcium Carbonate/ Glycine (Oscal) 500 mg TIDWMEALS PO Last administered on 09/29/19 10:09; Start 09/26/19 at 08:00 Magnesium Oxide (Magnesium Oxide) 400 mg TID PO Last administered on 09/29/19 10:09; Start 09/26/19 at 09:00 Psyllium Hydrophilic Mucilloid (Metamucil Fiber Packet) 1 pkt QHS PO ; Start 09/25/19 at 21:30 Furosemide (Lasix) 40 mg BID92 IVP Last administered on 09/28/19at 08:36; Start 09/26/19 at 09:00; Stop 09/28/19 at 11:50; Status DC Heparin Sodium (Porcine) (Heparin Sodium) 5,000 unit Q8HRS SQ Last administered on 09/29/19at 05:40; Start 09/25/19 at 22:00 Mirtazapine (Remeron) 7.5 mg QHS PO Last administered on 09/28/19at 21:18; Start 09/26/19 at 21:00 Amlodipine Besylate (Norvasc) 5 mg DAILY PO Last administered on 09/29/19 10:09; Start 09/26/19 at 11:30 Furosemide (Lasix) 40 mg BID PO Last administered on 09/29/19 10:09; Start 09/29/19 at 09:00 Potassium Chloride (Klor-Con) 20 meq 1X ONCE PO ; Start 09/29/19 at 12:00; Stop 09/29/19 at 12:01; Status DC Lidocaine/ Epinephrine (LIDOCAINE 1%-EPI 1:100,000 Multi-Dose) 20 ml STK-MED ONCE .ROUTE ; Start 09/29/19 at 13:21; Stop 09/29/19 at 13:21; Status DC Midazolam HCl (Versed) 2 mg STK-MED ONCE .ROUTE ; Start 09/29/19 at 13:34; Stop 09/29/19 at 13:35; Status DC Fentanyl Citrate (Fentanyl 2ml Vial) 100 mcg STK-MED ONCE .ROUTE ; Start 09/29/19 at 13:35; Stop 09/29/19 at 13:35; Status DC Cefazolin Sodium (Ancef) 1 gm STK-MED ONCE IVP ; Start 09/29/19 at 13:39; Stop 09/29/19 at 13:40; Status DC Active Scripts Active Calcium (Calcium Carbonate) 500 Mg Tab.chew 1 Tab PO TID 30 Days Sodium Bicarbonate 650 Mg Tablet 2 Tab PO TID 30 Days Potassium Chloride (Potassium Chloride) 20 Meq Tablet.er 20 Meq PO BID 30 Days Mag-Oxide (Magnesium Oxide) 200 Mg Tablet 1 Tab PO TID 30 Days Imodium A-D (Loperamide HCl) 2 Mg Capsule 2 Mg PO TID 30 Days Metamucil (Psyllium Husk) 0.52 Gm Capsule 1 Cap PO DAILY 30 Days Reported Tramadol Hcl 50 Mg Tablet 50 Mg PO PRN Q8HRS PRN Flomax (Tamsulosin Hcl) 0.4 Mg Cap.er.24h 1 Cap PO DAILY Vitals/I & O Vital Sign - Last 24 Hours 09/28/19 09/28/19 09/28/19 09/28/19 15:05 19:58 20:00 23:08 Temp 97.7 97.5 98.1 97.7 97.5 98.1 Pulse 62 62 64 Resp 18 18 16 B/P (MAP) 121/68 (85) 131/56 (81) 129/79 (96) Pulse Ox 95 96 90 O2 Delivery Nasal Cannula Nasal Cannula Nasal Cannula Nasal Cannula O2 Flow Rate 2.0 2.0 2.0 2.0 09/29/19 09/29/19 09/29/19 09/29/19 03:00 07:51 08:00 10:09 Temp 97.7 97.8 97.7 97.8 Pulse 56 52 52 Resp 20 17 B/P (MAP) 140/ 124/61 (82) 124/61 Pulse Ox 98 97 O2 Delivery Nasal Cannula Nasal Cannula Nasal Cannula O2 Flow Rate 2.0 2.0 2.0 09/29/19 10:56 Temp 97.7 97.7 Pulse 54 Resp 17 B/P (MAP) 129/73 (91) Pulse Ox 99 O2 Delivery Nasal Cannula O2 Flow Rate 2.0 Intake and Output 09/28/19 09/28/19 09/29/19 15:00 23:00 07:00 Intake Total 360 ml 150 ml 60 ml Output Total 400 ml 750 ml Balance -40 ml 150 ml -690 ml Nutrition Consultation Dietary Evaluation: Recommendations by RD: Dietary education by RD, Increase Calorie Intake, Protein supplementation Comments: discussed renal diet with pt offer renal oral supplements - Nepro when po intake is < 50% and or for extra protein if pt starts HD Expected Outcomes/Goals: to meet >75% est nutr needs Malnutrition Findings: Food and Nutrition Intake (Mod: <75% est energy req 7days Weight Status: Appropriate [facility] SH[facility] MD September 29, 2019 13:49
[2019-09-29] MEDS ORDERED: fentaNYL PF VIAL 100 MCG/2 ML VIAL IV ONE (14:15)
[2019-09-29] MEDS ORDERED: LIDOCAINE 1% Multi-Dose 20 ML VIAL. INJ ONE (14:15)
[2019-09-29] MEDS ORDERED: MIDAZOLAM HCL/PF 2 MG/2 ML VIAL. IV ONE (14:15)
--- NOTE | 2019-09-29 14:18 | NUR ---
This RN nonadministered pt's 1400 dose of Heparin due to pt getting a tunneled catheter placed.
[2019-09-29 14:20] VITALS: BP 135/59
[2019-09-29] MEDS ORDERED: LIDOCAINE 1%/EPI 1:100,000 20 ML VIAL. INJ ONE (14:30)
[2019-09-29] MEDS ORDERED: IV NORMAL SALINE 1000ML BAG 1,000 ML IV PRN ×2 (14:45)
[2019-09-29] MEDS ORDERED: DIALYSIS PATIENT. MC PRN ×2 (15:00)
[2019-09-29 20:00] VITALS: BP 114/63
[2019-09-29] MEDS: MIRTAZAPINE 7.5 MG TABLET. PO SCH (21:42)
[2019-09-29] MEDS: PSYLLIUM HUSK (SUGAR FREE) 1 PKT PACKET PO SCH (21:42)
[2019-09-29 23:38] VITALS: BP 124/63
[2019-09-30] MEDS: traMADol 50 MG TABLET PO PRN ×3 (00:03→17:45)
[2019-09-30 03:09] VITALS: BP 110/64
[2019-09-30 05:40] LABS: CALCIUM 7.6 mg/dL (8.5-10.1); CREATININE 3.5 mg/dL (0.7-1.3); GFR 16.9; POTASSIUM 4.6 mmol/L (3.5-5.1)
[2019-09-30] MEDS: HEPARIN for SUB-Q USE 5,000 UNIT/ML VIAL. SQ SCH ×3 (06:32→20:47)
[2019-09-30 07:34] VITALS: BP 120/60
[2019-09-30] MEDS: CALCIUM CARBONATE 500 MG TABLET PO SCH ×3 (09:13→17:45)
[2019-09-30] MEDS: TAMSULOSIN 0.4 MG CAP.ER.24H. PO SCH (09:13)
[2019-09-30] MEDS: LOPERAMIDE 2 MG CAPSULE PO SCH ×3 (09:13→20:46)
[2019-09-30] MEDS: MAGNESIUM OXIDE 400 MG TABLET PO SCH ×3 (09:14→20:45)
[2019-09-30] MEDS: amLODIPine BESYLATE 5 MG TABLET PO SCH (09:14)
[2019-09-30] MEDS: FUROSEMIDE 40 MG TABLET. PO SCH ×2 (09:14→20:45)
[2019-09-30] MEDS: POTASSIUM CHLORIDE 20 MEQ TABLET.ER. PO SCH ×2 (09:14→17:45)
[2019-09-30] MEDS ORDERED: IV NORMAL SALINE 1000ML BAG 1,000 ML IV PRN ×2 (09:27)
--- NOTE | 2019-09-30 09:28 | PDOC ---
CARDIOLOGY PROGRESS NOTE SUBJECTIVE: No acute events overnight. Denies any chest pain, dyspnea, orthopnea or PND. OBJECTIVE: Vital Signs/I&O: Vital Signs Date Time Temp Pulse Resp B/P (MAP) Pulse Ox O2 Delivery O2 Flow Rate FiO2 09/30/19 09:14 63 120/60 09/30/19 09:13 18 Room Air 09/30/19 07:34 97.6 99 2.0 97.6 I & O 09/29/19 09/29/19 09/30/19 15:00 23:00 07:00 Intake Total 300 ml 120 ml Output Total 450 ml 550 ml 1450 ml Balance -450 ml -250 ml -1330 ml Objective: He is alert and oriented. No acute distress. Head and neck exam unremarkable Right tunneled catheter in place Soft abdomen No lower extremity edema 2+ pulses. Normal heart tones, soft systolic murmur. CURRENT MEDICATIONS: Current Medications Medications (Trade) Dose Ordered Sig/Richard Route PRN Reason Start Time Stop Time Status Last Admin Dose Admin Midazolam HCl (Versed) 1 mg 1X ONCE IV 09/29/19 14:15 09/29/19 14:33 DC 09/29/19 14:18 Fentanyl Citrate (Fentanyl 2ml Vial) 50 mcg 1X ONCE IV 09/29/19 14:15 09/29/19 14:33 DC 09/29/19 14:18 Cefazolin Sodium (Ancef) 1 gm 1X ONCE IVP 09/29/19 14:15 09/29/19 14:33 DC 09/29/19 14:17 Lidocaine/ Epinephrine (LIDOCAINE 1%-EPI 1:100,000 Multi-Dose) 12 ml 1X ONCE INJ 09/29/19 14:30 09/29/19 14:33 DC 09/29/19 14:02 DIAGNOSTIC TESTING: Labs: Laboratory Tests 09/30/19 05:20 Laboratory Tests Test 09/30/19 05:20 Sodium Level 138 mmol/L (136-145) Potassium Level 4.6 mmol/L (3.5-5.1) Chloride Level 100 mmol/L (98-107) Carbon Dioxide Level 31 mmol/L (21-32) Anion Gap 7 (6-14) Blood Urea Nitrogen 38 mg/dL (8-26) H Creatinine 3.5 mg/dL (0.7-1.3) H Estimated GFR (Cockcroft-Gault) 16.9 Glucose Level 102 mg/dL (70-99) H Calcium Level 7.6 mg/dL (8.5-10.1) L ASSESSMENT: 1. Exertional dyspnea 2. End-stage renal disease 3. Diastolic heart failure PLAN: 1. Given that he has normal LV systolic function, we will plan for initiation of dialysis and an outpatient stress test to rule out any occult ischemia. Discussed with the patient and he is agreeable. Supportive care. LEONARDO CHOU MD September 30, 2019 09:28
[2019-09-30] MEDS ORDERED: ALBUMIN HUMAN 25% 200 ML IV PRN (09:30)
[2019-09-30] MEDS ORDERED: ACETAMINOPHEN 500 MG TABLET PO PRN (09:30)
[2019-09-30] MEDS ORDERED: 0.9 % SODIUM CHLORIDE 10 ML DISP.SYRIN. IV PRN ×2 (09:30)
[2019-09-30] MEDS ORDERED: DIALYSIS PATIENT. MC PRN (09:30)
[2019-09-30] MEDS ORDERED: diphenhydrAMINE 50 MG/ML VIAL IV PRN ×2 (09:30)
--- NOTE | 2019-09-30 10:34 | RAD ---
Procedure: Tunneled hemodialysis catheter placement 09/30/2019 8:31 AM Clinical Indication: Worsening kidney function Sterility: All elements of maximal sterile barrier technique including the use of a cap, mask, sterile gown, sterile gloves, large sterile sheet, appropriate hand hygiene, and 2% chlorhexidine for cutaneous antisepsis (or acceptable alternative antiseptic per current guidelines) were followed for this procedure. Consent: The procedure was explained in its entirety to the patient or the patients designated sales representative public utilities by a member of the treatment team, including a discussion of the risks, benefits and commonly accepted alternatives to the procedure, as well as the expected consequences of no therapy whatsoever. Discussion of the risks included, but was not limited to, those that are most frequent and those that are rare but possibly severe or life-threatening, as well as the possibility of unforeseen complications. Technique and Findings: Following informed consent, a timeout procedure was performed. The patient was prepped and draped in the usual sterile fashion. Ultrasound interrogation of the right neck revealed patency and compressibility of the right internal jugular vein. A 21-gauge micropuncture was then used to gain access to this vein under ultrasound guidance. A hard copy ultrasound image was recorded. The needle was exchanged over a wire for a 4 [place] sheath which was used to guide an guidewire into the IVC. The skin over the right anterior chest wall was copiously anesthetized with 1% Lidocaine and a small dermatotomy was made. A 23 cm tipped cuff palindrome tunneled hemodialysis catheter was then tunneled subcutaneously towards the neck dermatotomy and deployed through a large caliber peel-away sheath under fluoroscopic guidance such that the distal tip resided in the mid right atrium. Manual flow rates were assessed and found to be within normal limits. The catheter was then flushed, packed with Heparin, capped, and sutured to the skin. The neck dermatotomy was closed with Dermabond. No immediate complications were identified. Sedation: Conscious sedation was administered for 21 minutes. The patient was monitored by a qualified independent observer throughout the time of sedation. Please refer to the medical record for exact doses of medications utilized to achieve moderate sedation. Fluoroscopy time:1.1 MIN Dose area product:2 [id number] Impression: Tunneled hemodialysis catheter placement as described
--- NOTE | 2019-09-30 11:07 | PDOC ---
SUBJECTIVE ROS Initiated on HD on 09/28, pt states he is feeling much better More alert , denies any complaints OBJECTIVE Vital Signs Vital Signs Date Time Temp Pulse Resp B/P (MAP) Pulse Ox O2 Delivery O2 Flow Rate FiO2 09/30/19 10:13 18 Nasal Cannula 2.0 09/30/19 09:14 63 120/60 09/30/19 07:34 97.6 99 97.6 I & 0 Intake and Output 09/30/19 07:00 Intake Total 420 ml Output Total 2450 ml Balance -2030 ml Intake Oral 420 ml Output Urine Total 550 ml Stool Total 1450 ml Gastric Drainage Total 450 ml # Bowel Movements 2 PHYSICAL EXAM Physical Exam General: NAD, more alert HEENT: OM moist, On O2 by NC Lungs: Other (Bibasilar crackles) Heart: S1S2, RRR, n Abdomen: Soft, Extremities:No edema, Skin: No rashes, Neuro: Grossly normal No [place] DIAGNOSIS/ASSESSMENT Assessment & Plan SUHAS - New Onset ESRD Cardiorenal Initiated on HD on 09/28,short treatment tolerated well Seen on HD, tolerating well , Minimal UF , has RRF ,Discussed treatment plan with bee tender Aceess Tunnelled HDC on 09/28; CoVid P before dc , SW for OP chair time Avoid Nephrotoxins , Strict I/O HypoKalemia- resolved CKD Stage 4 - Cr 2.4 in 2017 , used to follow with Dr. Amaya, did not keep fu appts Was Hospitalized in July 2019, he venecia not make fu appt with nephrology as advised Acute on Chronic Diastolic CHF- switched to PO lasix , titrate daose based on BP , Hold morning dose on HD days Ac Hypoxic Resp failure- On O2 by NC Colon Ca in Remission s/p Diverting Colostomy Right renal cyst. Probable left renal cyst - CT scan in Jun 2019 Radiology recommended a follow-up sonogram of both kidneys in 6 months to ensure stability of the left renal lesion. Defer to Primary BPH- On Flomax COMMENT/RELEVANT DATA Meds Current Medications Medications (Trade) Dose Ordered Sig/Richard Start Time Stop Time Status Last Admin Dose Admin Acetaminophen (Tylenol) 500 mg 1X PRN PRN 09/30/19 09:30 10/01/19 09:29 Albumin Human 200 ml @ 200 mls/hr 1X PRN PRN 09/30/19 09:30 09/30/19 15:29 Amlodipine Besylate (Norvasc) 5 mg DAILY 09/26/19 11:30 09/30/19 09:14 5 MG Calcium Carbonate/ Glycine (Oscal) 500 mg TIDWMEALS 09/26/19 08:00 09/30/19 09:13 500 MG Cefazolin Sodium (Ancef) 1 gm 1X ONCE 09/29/19 14:15 09/29/19 14:33 DC 09/29/19 14:17 1 GM Diphenhydramine HCl (Benadryl) 25 mg 1X PRN PRN 09/30/19 09:30 10/01/19 09:29 Docusate Sodium (Colace) 100 mg PRN BID PRN 09/25/19 21:15 Fentanyl Citrate (Fentanyl 2ml Vial) 50 mcg 1X ONCE 09/29/19 14:15 09/29/19 14:33 DC 09/29/19 14:18 50 MCG Furosemide (Lasix) 40 mg BID 09/29/19 09:00 09/30/19 09:14 40 MG Heparin Sodium (Porcine) (Heparin Sodium) 5,000 unit Q8HRS 09/25/19 22:00 09/30/19 06:32 5,000 UNIT Info (PHARMACY MONITORING -- do not chart) 1 each PRN DAILY PRN 09/30/19 09:30 Lidocaine HCl (Lidocaine 1% 20ml Vial) 12 ml 1X ONCE 09/29/19 14:15 09/29/19 14:20 DC Lidocaine/ Epinephrine (LIDOCAINE 1%-EPI 1:100,000 Multi-Dose) 12 ml 1X ONCE 09/29/19 14:30 09/29/19 14:33 DC 09/29/19 14:02 12 ML Loperamide HCl (Imodium) 2 mg TID 09/25/19 21:45 09/30/19 09:13 2 MG Magnesium Oxide (Magnesium Oxide) 400 mg TID 09/26/19 09:00 09/30/19 09:14 400 MG Midazolam HCl (Versed) 1 mg 1X ONCE 09/29/19 14:15 09/29/19 14:33 DC 09/29/19 14:18 1 MG Mirtazapine (Remeron) 7.5 mg QHS 09/26/19 21:00 09/29/19 21:42 7.5 MG Ondansetron HCl (Zofran) 4 mg PRN Q4HRS PRN 09/25/19 21:15 Potassium Chloride (Klor-Con) 20 meq 1X ONCE 09/29/19 12:00 09/29/19 12:01 DC Psyllium Hydrophilic Mucilloid (Metamucil Fiber Packet) 1 pkt QHS 09/25/19 21:30 09/29/19 21:42 1 PKT Sodium Bicarbonate (Sodium Bicarbonate) 1,300 mg TIDWMEALS 09/26/19 08:00 09/28/19 11:52 DC 09/28/19 11:32 1,300 MG Sodium Chloride 1,000 ml @ 400 mls/hr Q2H30M PRN 09/30/19 09:27 09/30/19 21:26 Sodium Chloride (Normal Saline Flush) 10 ml 1X PRN PRN 09/30/19 09:30 10/01/19 09:29 Tamsulosin HCl (Flomax) 0.4 mg DAILY 09/26/19 09:00 09/30/19 09:13 0.4 MG Tramadol HCl (Ultram) 50 mg PRN Q8HRS PRN 09/25/19 21:30 09/30/19 09:13 50 MG Lab Laboratory Tests Test 09/30/19 05:20 Sodium Level 138 mmol/L (136-145) Potassium Level 4.6 mmol/L (3.5-5.1) Chloride Level 100 mmol/L (98-107) Carbon Dioxide Level 31 mmol/L (21-32) Anion Gap 7 (6-14) Blood Urea Nitrogen 38 mg/dL (8-26) Creatinine 3.5 mg/dL (0.7-1.3) Estimated GFR (Cockcroft-Gault) 16.9 Glucose Level 102 mg/dL (70-99) Calcium Level 7.6 mg/dL (8.5-10.1) Results All relevant outside records, renal labs, imaging studies, telemetry/EKG's were reviewed. NOÉ NEGRETE MD September 30, 2019 11:07
--- NOTE | 2019-09-30 13:10 | NUR ---
SS following up with discharge planning. SS reviewed pt chart and discussed with pt RN. Pt had tunneled cath placed and is getting first dialysis today. Chest x-ray and COVID19 test ordered and currently pending. SS will phone and fax referral to [facility] once COVID19 test has resulted and chest x-ray is completed. SS will continue to follow for discharge planning.
[2019-09-30 15:25] VITALS: BP 98/60
--- NOTE | 2019-09-30 15:26 | RAD ---
CHEST AP ONLY Clinical indications: Dyspnea. COMPARISON: None available. Findings: Right IJ central line is in place and the inferior tip is located within the upper aspect of the right atrium. No pneumothorax is seen. Small bilateral pleural effusions are evident. No acute lung infiltrate is seen on the right side. There is left lung base atelectasis or infiltrate. This may be in association with a hiatal hernia. The heart size and mediastinum are unremarkable otherwise. The pulmonary vasculature and both lili are unremarkable. Scoliotic curvature is seen. IMPRESSION: Left lung base infiltrate or atelectasis. This may be in association with a hiatal hernia. Small bilateral pleural effusions. Electronically signed by: Jason Kidd MD (09/30/2019 3:23 PM) [facility] [place]
--- NOTE | 2019-09-30 16:17 | PDOC ---
PROGRESS NOTES Chief Complaint Chief Complaint Assessment/Plan A/P: Acute on chronic diastolic (congestive) heart failure - will continue diuresis with IV lasix. Cont BB, statin, ASA. Cr. precludes MEDINA/ARB therapy. SUHAS on Chronic renal failure, stage 4 (severe) - likely vasomotor nephropathy, cardiorenal. Patient will have tunneled catheter placed today, dialysis as per nephrology neuropsychology medical consultant Bilateral pleural effusions - Will diurese, likely CHF related. Acute hypoxic respiratory failure - likely related to above. Will diurese, wean O2 as tolerated Colorectal cancer in remission - s/p diverting ileostomy. Stoma care ordered Elevated troponin - likely demand ischemia given acute CHF exacerbation Loss of appetite - will start on remeron Insomnia - as above FEN - Renal diet PPX - heparin FULL CODE Dispo - inpatient for CHF exacerbation 2 midnights. History of Present Illness History of Present Illness Patient in better spirits today compared to yesterday, seems to have responded well to hemodialysis which was run 2-1/2 hours yesterday and today will run a fu course. He will continue with dialysis on Friday as per nephrology neuropsychology medical consultant, recommendations greatly appreciated Vitals Vitals Vital Signs Date Time Temp Pulse Resp B/P (MAP) Pulse Ox O2 Delivery O2 Flow Rate FiO2 09/30/19 15:25 97.6 64 18 98/60 (73) 98 Nasal Cannula 2.0 97.6 Physical Exam Physical Exam General: Alert, Oriented X3, Cooperative, moderate distress HEENT: Atraumatic, PERRLA, EOMI, Mucous membr. moist/pink Lungs: Other (Bibasilar crackles) Heart: S1S2, RRR, no thrills, no rubs, no gallops, no murmurs Abdomen: Normal bowel sounds, Soft, No tenderness, No hepatosplenomegaly, No masses Rectal Exam: not examined Extremities: No clubbing, No cyanosis, No edema, Normal pulses, No tenderness/swelling Skin: No rashes, No breakdown, No significant lesion Neuro: Normal speech, Strength at 5/5 X4 ext, Normal tone, Sensation intact, Cranial nerves 3-12 NL, Reflexes 2+ Psych/Mental Status: Mental status NL, Mood NL General: Alert, Oriented X3, No acute distress Heart: Regular rate Abdomen: Normal bowel sounds, Soft, No tenderness Extremities: No cyanosis Skin: No rashes, No breakdown, No significant lesion Labs LABS Laboratory Tests Test 09/30/19 05:20 Sodium Level 138 mmol/L (136-145) Potassium Level 4.6 mmol/L (3.5-5.1) Chloride Level 100 mmol/L (98-107) Carbon Dioxide Level 31 mmol/L (21-32) Anion Gap 7 (6-14) Blood Urea Nitrogen 38 mg/dL (8-26) Creatinine 3.5 mg/dL (0.7-1.3) Estimated GFR (Cockcroft-Gault) 16.9 Glucose Level 102 mg/dL (70-99) Calcium Level 7.6 mg/dL (8.5-10.1) Comment Review of Relevant I have reviewed the following items salome (where applicable) has been applied. Labs Laboratory Tests Test 09/29/19 05:00 09/30/19 05:20 Prothrombin Time 13.8 SEC (11.7-14.0) Prothromb Time International Ratio 1.1 (0.8-1.1) Sodium Level 142 mmol/L (136-145) 138 mmol/L (136-145) Potassium Level 3.3 mmol/L (3.5-5.1) 4.6 mmol/L (3.5-5.1) Chloride Level 103 mmol/L (98-107) 100 mmol/L (98-107) Carbon Dioxide Level 30 mmol/L (21-32) 31 mmol/L (21-32) Anion Gap 9 (6-14) 7 (6-14) Blood Urea Nitrogen 51 mg/dL (8-26) 38 mg/dL (8-26) Creatinine 3.9 mg/dL (0.7-1.3) 3.5 mg/dL (0.7-1.3) Estimated GFR (Cockcroft-Gault) 14.9 16.9 Glucose Level 83 mg/dL (70-99) 102 mg/dL (70-99) Calcium Level 6.8 mg/dL (8.5-10.1) 7.6 mg/dL (8.5-10.1) Laboratory Tests Test 09/30/19 05:20 Sodium Level 138 mmol/L (136-145) Potassium Level 4.6 mmol/L (3.5-5.1) Chloride Level 100 mmol/L (98-107) Carbon Dioxide Level 31 mmol/L (21-32) Anion Gap 7 (6-14) Blood Urea Nitrogen 38 mg/dL (8-26) Creatinine 3.5 mg/dL (0.7-1.3) Estimated GFR (Cockcroft-Gault) 16.9 Glucose Level 102 mg/dL (70-99) Calcium Level 7.6 mg/dL (8.5-10.1) Medications Current Medications Potassium Chloride (Klor-Con) 40 meq 1X ONCE PO Last administered on 09/25/19at 21:00; Start 09/25/19 at 20:15; Stop 09/25/19 at 20:16; Status DC Ondansetron HCl (Zofran) 4 mg PRN Q4HRS PRN IV NAUSEA/VOMITING; Start 09/25/19 at 21:15 Acetaminophen (Tylenol) 650 mg PRN Q4HRS PRN PO TEMP OVER 100.4F OR MILD PAIN Last administered on 09/26/19at 23:13; Start 09/25/19 at 21:15 Docusate Sodium (Colace) 100 mg PRN BID PRN PO HARD STOOLS; Start 09/25/19 at 21:15 Loperamide HCl (Imodium) 2 mg TID PO Last administered on 09/30/19at 15:28; Start 09/25/19 at 21:45 Potassium Chloride (Klor-Con) 20 meq BIDWMEALS PO Last administered on 09/30/19at 09:14; Start 09/26/19 at 08:00 Sodium Bicarbonate (Sodium Bicarbonate) 1,300 mg TIDWMEALS PO Last administered on 09/28/19at 11:32; Start 09/26/19 at 08:00; Stop 09/28/19 at 11:52; Status DC Tamsulosin HCl (Flomax) 0.4 mg DAILY PO Last administered on 09/30/19 09:13; Start 09/26/19 at 09:00 Tramadol HCl (Ultram) 50 mg PRN Q8HRS PRN PO MODERATE PAIN, SEVERE PAIN Last administered on 09/30/19at 09:13; Start 09/25/19 at 21:30 Calcium Carbonate/ Glycine (Oscal) 500 mg TIDWMEALS PO Last administered on 09/30/19at 09:13; Start 09/26/19 at 08:00 Magnesium Oxide (Magnesium Oxide) 400 mg TID PO Last administered on 09/30/19 15:28; Start 09/26/19 at 09:00 Psyllium Hydrophilic Mucilloid (Metamucil Fiber Packet) 1 pkt QHS PO Last administered on 09/29/19at 21:42; Start 09/25/19 at 21:30 Furosemide (Lasix) 40 mg BID92 IVP Last administered on 09/28/19at 08:36; Start 09/26/19 at 09:00; Stop 09/28/19 at 11:50; Status DC Heparin Sodium (Porcine) (Heparin Sodium) 5,000 unit Q8HRS SQ Last administered on 09/30/19at 15:30; Start 09/25/19 at 22:00 Mirtazapine (Remeron) 7.5 mg QHS PO Last administered on 09/29/19 21:42; Start 09/26/19 at 21:00 Amlodipine Besylate (Norvasc) 5 mg DAILY PO Last administered on 09/30/19at 09:14; Start 09/26/19 at 11:30 Furosemide (Lasix) 40 mg BID PO Last administered on 09/30/19at 09:14; Start 09/29/19 at 09:00 Potassium Chloride (Klor-Con) 20 meq 1X ONCE PO ; Start 09/29/19 at 12:00; Stop 09/29/19 at 12:01; Status DC Lidocaine/ Epinephrine (LIDOCAINE 1%-EPI 1:100,000 Multi-Dose) 20 ml STK-MED ONCE .ROUTE ; Start 09/29/19 at 13:21; Stop 09/29/19 at 13:21; Status DC Midazolam HCl (Versed) 2 mg STK-MED ONCE .ROUTE ; Start 09/29/19 at 13:34; Stop 09/29/19 at 13:35; Status DC Fentanyl Citrate (Fentanyl 2ml Vial) 100 mcg STK-MED ONCE .ROUTE ; Start 09/29/19 at 13:35; Stop 09/29/19 at 13:35; Status DC Cefazolin Sodium (Ancef) 1 gm STK-MED ONCE IVP ; Start 09/29/19 at 13:39; Stop 09/29/19 at 13:40; Status DC Midazolam HCl (Versed) 1 mg 1X ONCE IV Last administered on 09/29/19at 14:18; Start 09/29/19 at 14:15; Stop 09/29/19 at 14:33; Status DC Fentanyl Citrate (Fentanyl 2ml Vial) 50 mcg 1X ONCE IV Last administered on 09/29/19at 14:18; Start 09/29/19 at 14:15; Stop 09/29/19 at 14:33; Status DC Cefazolin Sodium (Ancef) 1 gm 1X ONCE IVP Last administered on 09/29/19at 14:17; Start 09/29/19 at 14:15; Stop 09/29/19 at 14:33; Status DC Lidocaine HCl (Lidocaine 1% 20ml Vial) 12 ml 1X ONCE INJ ; Start 09/29/19 at 14:15; Stop 09/29/19 at 14:20; Status DC Lidocaine/ Epinephrine (LIDOCAINE 1%-EPI 1:100,000 Multi-Dose) 12 ml 1X ONCE INJ Last administered on 09/29/19at 14:02; Start 09/29/19 at 14:30; Stop 09/29/19 at 14:33; Status DC Sodium Chloride 1,000 ml @ 1,000 mls/hr Q1H PRN IV hypotension; Start 09/29/19 at 14:45; Stop 09/29/19 at 20:44; Status DC Sodium Chloride 1,000 ml @ 400 mls/hr Q2H30M PRN IV PATENCY; Start 09/29/19 at 14:45; Stop 09/30/19 at 02:44; Status DC Info (PHARMACY MONITORING -- do not chart) 1 each PRN DAILY PRN MC SEE COMMENTS; Start 09/29/19 at 15:00; Status UNV Info (PHARMACY MONITORING -- do not chart) 1 each PRN DAILY PRN MC SEE COMMENTS; Start 09/29/19 at 15:00 Sodium Chloride 1,000 ml @ 1,000 mls/hr Q1H PRN IV hypotension; Start 09/30/19 at 09:27; Stop 09/30/19 at 15:26; Status DC Albumin Human 200 ml @ 200 mls/hr 1X PRN PRN IV Hypotension; Start 09/30/19 at 09:30; Stop 09/30/19 at 15:29; Status DC Acetaminophen (Tylenol) 500 mg 1X PRN PRN PO MILD PAIN / TEMP > 100.3'F; Start 09/30/19 at 09:30; Stop 10/01/19 at 09:29 Diphenhydramine HCl (Benadryl) 25 mg 1X PRN PRN IV ITCHING; Start 09/30/19 at 09:30; Stop 10/01/19 at 09:29 Diphenhydramine HCl (Benadryl) 25 mg 1X PRN PRN IV ITCHING; Start 09/30/19 at 09:30; Stop 10/01/19 at 09:29 Sodium Chloride (Normal Saline Flush) 10 ml 1X PRN PRN IV AP catheter pack; Start 09/30/19 at 09:30; Stop 10/01/19 at 09:29 Sodium Chloride (Normal Saline Flush) 10 ml 1X PRN PRN IV BUSINESS MANAGER catheter pack; Start 09/30/19 at 09:30; Stop 10/01/19 at 09:29 Sodium Chloride 1,000 ml @ 400 mls/hr Q2H30M PRN IV PATENCY; Start 09/30/19 at 09:27; Stop 09/30/19 at 21:26 Info (PHARMACY MONITORING -- do not chart) 1 each PRN DAILY PRN MC SEE COMMENTS; Start 09/30/19 at 09:30 Active Scripts Active Calcium (Calcium Carbonate) 500 Mg Tab.chew 1 Tab PO TID 30 Days Sodium Bicarbonate 650 Mg Tablet 2 Tab PO TID 30 Days Potassium Chloride (Potassium Chloride) 20 Meq Tablet.er 20 Meq PO BID 30 Days Mag-Oxide (Magnesium Oxide) 200 Mg Tablet 1 Tab PO TID 30 Days Imodium A-D (Loperamide HCl) 2 Mg Capsule 2 Mg PO TID 30 Days Metamucil (Psyllium Husk) 0.52 Gm Capsule 1 Cap PO DAILY 30 Days Reported Tramadol Hcl 50 Mg Tablet 50 Mg PO PRN Q8HRS PRN Flomax (Tamsulosin Hcl) 0.4 Mg Cap.er.24h 1 Cap PO DAILY Vitals/I & O Vital Sign - Last 24 Hours 09/29/19 09/29/19 09/29/19 09/30/19 20:00 20:00 23:38 00:03 Temp 97.5 98.2 97.5 98.2 Pulse 68 63 Resp 16 18 18 B/P (MAP) 114/63 (80) 124/63 (83) Pulse Ox 95 97 97 O2 Delivery NonRebreather Mask Nasal Cannula Nasal Cannula Nasal Cannula O2 Flow Rate 2.0 2.0 2.0 09/30/19 09/30/19 09/30/19 09/30/19 01:03 03:09 07:34 09:13 Temp 97.6 97.6 97.6 97.6 Pulse 64 63 Resp 18 18 18 18 B/P (MAP) 110/64 (79) 120/60 (80) Pulse Ox 97 97 99 O2 Delivery Nasal Cannula Nasal Cannula Nasal Cannula Room Air O2 Flow Rate 2.0 2.0 2.0 09/30/19 09/30/19 09/30/19 09:14 10:13 15:25 Temp 97.6 97.6 Pulse 63 64 Resp 18 18 B/P (MAP) 120/60 98/60 (73) Pulse Ox 98 O2 Delivery Nasal Cannula Nasal Cannula O2 Flow Rate 2.0 2.0 Intake and Output 09/29/19 09/29/19 09/30/19 15:00 23:00 07:00 Intake Total 300 ml 120 ml Output Total 450 ml 550 ml 1450 ml Balance -450 ml -250 ml -1330 ml Nutrition Consultation Dietary Evaluation: Recommendations by RD: Dietary education by RD, Increase Calorie Intake, Protein supplementation Comments: discussed renal diet with pt offer renal oral supplements - Nepro when po intake is < 50% and or for extra protein if pt starts HD Expected Outcomes/Goals: to meet >75% est nutr needs Malnutrition Findings: Food and Nutrition Intake (Mod: <75% est energy req 7days Weight Status: Appropriate [facility] SH[facility] MD September 30, 2019 16:17
[2019-09-30 19:42] VITALS: BP 116/71
[2019-09-30] MEDS: MIRTAZAPINE 7.5 MG TABLET. PO SCH (20:46)
[2019-09-30] MEDS: PSYLLIUM HUSK (SUGAR FREE) 1 PKT PACKET PO SCH (20:46)
[2019-09-30 23:49] VITALS: BP 106/64
[2019-10-01 03:05] VITALS: BP 102/60
[2019-10-01] MEDS: HEPARIN for SUB-Q USE 5,000 UNIT/ML VIAL. SQ SCH ×3 (06:27→21:36)
--- NOTE | 2019-10-01 07:07 | NUR ---
IP: Pt is COVID negative.
[2019-10-01 07:15] VITALS: BP 111/67
[2019-10-01] MEDS: FUROSEMIDE 40 MG TABLET. PO SCH ×2 (08:20→21:20)
[2019-10-01] MEDS: amLODIPine BESYLATE 5 MG TABLET PO SCH (08:20)
[2019-10-01] MEDS: CALCIUM CARBONATE 500 MG TABLET PO SCH ×3 (08:20→17:58)
[2019-10-01] MEDS: traMADol 50 MG TABLET PO PRN (08:21)
[2019-10-01] MEDS: LOPERAMIDE 2 MG CAPSULE PO SCH ×3 (08:21→21:20)
[2019-10-01] MEDS: POTASSIUM CHLORIDE 20 MEQ TABLET.ER. PO SCH ×2 (08:21→17:59)
[2019-10-01] MEDS: TAMSULOSIN 0.4 MG CAP.ER.24H. PO SCH (08:21)
[2019-10-01] MEDS: MAGNESIUM OXIDE 400 MG TABLET PO SCH ×3 (08:21→21:20)
--- NOTE | 2019-10-01 09:54 | PDOC ---
SUBJECTIVE ROS Initiated on HD on 09/28,2nd treatment yesterday pt states he is feeling much better even after 1st treatment , Breathing better OBJECTIVE Vital Signs Vital Signs Date Time Temp Pulse Resp B/P (MAP) Pulse Ox O2 Delivery O2 Flow Rate FiO2 10/01/19 09:21 18 98 Nasal Cannula 2.0 10/01/19 08:20 60 111/67 10/01/19 07:15 97.4 97.4 I & 0 Intake and Output 10/01/19 07:00 Intake Total 600 ml Output Total 2450 ml Balance -1850 ml Intake Oral 600 ml Output Urine Total 550 ml Stool Total 1400 ml Urine/Stool Mix 500 ml PHYSICAL EXAM Physical Exam General: NAD, more alert HEENT: OM moist, On RA Lungs: decreased at bases Heart: S1S2, RRR, n Abdomen: Soft, Extremities:No edema, Skin: No rashes, Neuro: Grossly normal No york Has Tunneled HDC Rt DIAGNOSIS/ASSESSMENT Assessment & Plan New Onset ESRD- Cardiorenal Initiated on HD on 09/28, 2 nd treatment 09/29 No indication for HD today Aceess Tunnelled HDC on 09/28; CoVid negative Awaiting OP chair time HypoKalemia- resolved CKD Stage 4 - Cr 2.4 in 2017 , used to follow with Dr. Amaya, did not keep fu appts Was Hospitalized in July 2019, he venecia not make fu appt with nephrology as advised Acute on Chronic Diastolic CHF- switched to PO lasix , titrate daose based on BP , Hold morning dose on HD days Ac Hypoxic Resp failure- On O2 by NC Colon Ca in Remission s/p Diverting Colostomy Right renal cyst. Probable left renal cyst - CT scan in Jun 2019 Radiology recommended a follow-up sonogram of both kidneys in 6 months to ensure stability of the left renal lesion. Defer to Primary BPH- On Flomax COMMENT/RELEVANT DATA Meds Current Medications Medications (Trade) Dose Ordered Sig/Richard Start Time Stop Time Status Last Admin Dose Admin Acetaminophen (Tylenol) 500 mg 1X PRN PRN 09/30/19 09:30 09/30/19 19:00 DC Albumin Human 200 ml @ 200 mls/hr 1X PRN PRN 09/30/19 09:30 09/30/19 15:29 DC Amlodipine Besylate (Norvasc) 5 mg DAILY 09/26/19 11:30 10/01/19 08:20 5 MG Calcium Carbonate/ Glycine (Oscal) 500 mg TIDWMEALS 09/26/19 08:00 10/01/19 08:20 500 MG Cefazolin Sodium (Ancef) 1 gm 1X ONCE 09/29/19 14:15 09/29/19 14:33 DC 09/29/19 14:17 1 GM Diphenhydramine HCl (Benadryl) 25 mg 1X PRN PRN 09/30/19 09:30 09/30/19 19:00 DC Docusate Sodium (Colace) 100 mg PRN BID PRN 09/25/19 21:15 Fentanyl Citrate (Fentanyl 2ml Vial) 50 mcg 1X ONCE 09/29/19 14:15 09/29/19 14:33 DC 09/29/19 14:18 50 MCG Furosemide (Lasix) 40 mg BID 09/29/19 09:00 10/01/19 08:20 40 MG Heparin Sodium (Porcine) (Heparin Sodium) 5,000 unit Q8HRS 09/25/19 22:00 10/01/19 06:27 5,000 UNIT Info (PHARMACY MONITORING -- do not chart) 1 each PRN DAILY PRN 09/30/19 09:30 Cancel Lidocaine HCl (Lidocaine 1% 20ml Vial) 12 ml 1X ONCE 09/29/19 14:15 09/29/19 14:20 DC Lidocaine/ Epinephrine (LIDOCAINE 1%-EPI 1:100,000 Multi-Dose) 12 ml 1X ONCE 09/29/19 14:30 09/29/19 14:33 DC 09/29/19 14:02 12 ML Loperamide HCl (Imodium) 2 mg TID 09/25/19 21:45 10/01/19 08:21 2 MG Magnesium Oxide (Magnesium Oxide) 400 mg TID 09/26/19 09:00 10/01/19 08:21 400 MG Midazolam HCl (Versed) 1 mg 1X ONCE 09/29/19 14:15 09/29/19 14:33 DC 09/29/19 14:18 1 MG Mirtazapine (Remeron) 7.5 mg QHS 09/26/19 21:00 09/30/19 20:46 7.5 MG Ondansetron HCl (Zofran) 4 mg PRN Q4HRS PRN 09/25/19 21:15 Potassium Chloride (Klor-Con) 20 meq 1X ONCE 09/29/19 12:00 09/29/19 12:01 DC Psyllium Hydrophilic Mucilloid (Metamucil Fiber Packet) 1 pkt QHS 09/25/19 21:30 09/30/19 20:46 1 PKT Sodium Bicarbonate (Sodium Bicarbonate) 1,300 mg TIDWMEALS 09/26/19 08:00 09/28/19 11:52 DC 09/28/19 11:32 1,300 MG Sodium Chloride 1,000 ml @ 400 mls/hr Q2H30M PRN 09/30/19 09:27 09/30/19 21:26 DC Sodium Chloride (Normal Saline Flush) 10 ml 1X PRN PRN 09/30/19 09:30 09/30/19 19:00 DC Tamsulosin HCl (Flomax) 0.4 mg DAILY 09/26/19 09:00 10/01/19 08:21 0.4 MG Tramadol HCl (Ultram) 50 mg PRN Q8HRS PRN 09/25/19 21:30 10/01/19 08:21 50 MG Results All relevant outside records, renal labs, imaging studies, telemetry/EKG's were reviewed. NOÉ NEGRETE MD October 01, 2019 09:54
--- NOTE | 2019-10-01 10:21 | NUR ---
SS following up with discharge planning. All documentation needed received for [facility] referral. SS phoned and faxed completed referral to [facility], ; fax [phone]. SS currently awaiting chair time and will proceed accordingly.
[2019-10-01 11:33] VITALS: BP 109/65
--- NOTE | 2019-10-01 12:44 | PDOC ---
JACKIE HEARN SENIOR SHAREPOINT DEVELOPER 10/01/19 1244: CARDIO Progress Notes Date and Time Date of Service 10/01/19 Time of Evaluation 1130 Subjective Subjective: No Chest Pain, No shortness of breath, No Palpitations Vitals Vitals Vital Signs Date Time Temp Pulse Resp B/P (MAP) Pulse Ox O2 Delivery O2 Flow Rate FiO2 10/01/19 11:33 98.0 64 18 109/65 (80) 98 Nasal Cannula 2.0 98.0 Weight Weight [ ] Input and Output Intake and Output Intake and Output 10/01/19 07:00 Intake Total 600 ml Output Total 2450 ml Balance -1850 ml Intake Oral 600 ml Output Urine Total 550 ml Stool Total 1400 ml Urine/Stool Mix 500 ml Physical Exam HEENT: Neck Supple W Full Motion Chest: Symmetric LUNGS: Other (diminished ) Heart: other (SR with intermittent episodes of possibly junctional, PAFIB, could not rule out high grade block) Abdomen: Soft N/T Extremities: No Edema Neurology: alert, oriented, follow commands Assessment Assessment 1. Acute on chronic diastolic CHF; compensated 2. Mild troponin elevation; peak 0.09. Most probably type II, demand ischemia. CP free. 3. Arrhythmia: continues to have same intermittent rhythm concern for underlying A. fib versus third-degree heart block and occasionally NSVT. lowest rate in the mid40s no pauses and mean in the 60s. no symptoms. 4. 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 Hypertension; controlled 6. Colon CA s/p colectomy with ileostomy 7. Hypokalemia: resolved Recommendations 1. Fluid off loading per HD 2. MCOT to further discern AFIB burden and other arrhythmias and evaluate need for NOAC or PPM 3. Outpt ischemic workup 4. Consider for [facility] referral 5. No AV emelina blocking agents. Supportive care LEONARDO CHOU MD 10/01/19 1552: CARDIO Progress Notes Plan Plan Pt. seen and examined. Agree with above TRANSFORMER MOLDER note. No new issues. Breathing better. Tele unchanged, likely sinus rhythm with accelerated idioventricular rhythm. outpt monitoring. Plan for outpt stress testing. Thanks JACKIE HEARN APRN October 01, 2019 12:44 LEONARDO CHOU MD October 01, 2019 15:52
--- NOTE | 2019-10-01 13:49 | PDOC ---
PROGRESS NOTES Chief Complaint Chief Complaint Assessment/Plan A/P: Acute on chronic diastolic (congestive) heart failure - will continue diuresis with IV lasix. Cont BB, statin, ASA. Cr. precludes MEDINA/ARB therapy. SUHAS on Chronic renal failure, stage 4 (severe) - likely vasomotor nephropathy, cardiorenal. Patient will have tunneled catheter placed today, dialysis as per nephrology wallpaper consultant Bilateral pleural effusions - Will diurese, likely CHF related. Acute hypoxic respiratory failure - likely related to above. Will diurese, wean O2 as tolerated Colorectal cancer in remission - s/p diverting ileostomy. Stoma care ordered Elevated troponin - likely demand ischemia given acute CHF exacerbation Loss of appetite - will start on remeron Insomnia - as above Plan: COVID testing still pending Dialysis in the a.m. FEN - Renal diet PPX - heparin FULL CODE Dispo - inpatient for CHF exacerbation 2 midnights. History of Present Illness History of Present Illness No acute events reported overnight, case discussed with nursing staff patient in no acute distress no complaints during my visit Vitals Vitals Vital Signs Date Time Temp Pulse Resp B/P (MAP) Pulse Ox O2 Delivery O2 Flow Rate FiO2 10/01/19 11:33 98.0 64 18 109/65 (80) 98 Nasal Cannula 2.0 98.0 Physical Exam Physical Exam General: Alert, Oriented X3, Cooperative, moderate distress HEENT: Atraumatic, PERRLA, EOMI, Mucous membr. moist/pink Lungs: Other (Bibasilar crackles) Heart: S1S2, RRR, no thrills, no rubs, no gallops, no murmurs Abdomen: Normal bowel sounds, Soft, No tenderness, No hepatosplenomegaly, No masses Rectal Exam: not examined Extremities: No clubbing, No cyanosis, No edema, Normal pulses, No tenderness/swelling Skin: No rashes, No breakdown, No significant lesion Neuro: Normal speech, Strength at 5/5 X4 ext, Normal tone, Sensation intact, Cranial nerves 3-12 NL, Reflexes 2+ Psych/Mental Status: Mental status NL, Mood NL General: Alert, Oriented X3, No acute distress Heart: Regular rate Abdomen: Normal bowel sounds, Soft, No tenderness Extremities: No cyanosis Skin: No rashes, No breakdown, No significant lesion Comment Review of Relevant I have reviewed the following items salome (where applicable) has been applied. Labs Laboratory Tests Test 09/30/19 05:20 09/30/19 09:42 Sodium Level 138 mmol/L (136-145) Potassium Level 4.6 mmol/L (3.5-5.1) Chloride Level 100 mmol/L (98-107) Carbon Dioxide Level 31 mmol/L (21-32) Anion Gap 7 (6-14) Blood Urea Nitrogen 38 mg/dL (8-26) Creatinine 3.5 mg/dL (0.7-1.3) Estimated GFR (Cockcroft-Gault) 16.9 Glucose Level 102 mg/dL (70-99) Calcium Level 7.6 mg/dL (8.5-10.1) Coronavirus (COVID-19)(PCR) See separate report Medications Current Medications Potassium Chloride (Klor-Con) 40 meq 1X ONCE PO Last administered on 09/25/19at 21:00; Start 09/25/19 at 20:15; Stop 09/25/19 at 20:16; Status DC Ondansetron HCl (Zofran) 4 mg PRN Q4HRS PRN IV NAUSEA/VOMITING; Start 09/25/19 at 21:15 Acetaminophen (Tylenol) 650 mg PRN Q4HRS PRN PO TEMP OVER 100.4F OR MILD PAIN Last administered on 09/26/19at 23:13; Start 09/25/19 at 21:15 Docusate Sodium (Colace) 100 mg PRN BID PRN PO HARD STOOLS; Start 09/25/19 at 21:15 Loperamide HCl (Imodium) 2 mg TID PO Last administered on 10/01/19at 13:40; Start 09/25/19 at 21:45 Potassium Chloride (Klor-Con) 20 meq BIDWMEALS PO Last administered on 10/01/19at 08:21; Start 09/26/19 at 08:00 Sodium Bicarbonate (Sodium Bicarbonate) 1,300 mg TIDWMEALS PO Last administered on 09/28/19at 11:32; Start 09/26/19 at 08:00; Stop 09/28/19 at 11:52; Status DC Tamsulosin HCl (Flomax) 0.4 mg DAILY PO Last administered on 10/01/19at 08:21; Start 09/26/19 at 09:00 Tramadol HCl (Ultram) 50 mg PRN Q8HRS PRN PO MODERATE PAIN, SEVERE PAIN Last administered on 10/01/19 08:21; Start 09/25/19 at 21:30 Calcium Carbonate/ Glycine (Oscal) 500 mg TIDWMEALS PO Last administered on 10/01/19 13:41; Start 09/26/19 at 08:00 Magnesium Oxide (Magnesium Oxide) 400 mg TID PO Last administered on 10/01/19 13:40; Start 09/26/19 at 09:00 Psyllium Hydrophilic Mucilloid (Metamucil Fiber Packet) 1 pkt QHS PO Last administered on 09/30/19at 20:46; Start 09/25/19 at 21:30 Furosemide (Lasix) 40 mg BID92 IVP Last administered on 09/28/19 08:36; Start 09/26/19 at 09:00; Stop 09/28/19 at 11:50; Status DC Heparin Sodium (Porcine) (Heparin Sodium) 5,000 unit Q8HRS SQ Last administered on 10/01/19at 13:42; Start 09/25/19 at 22:00 Mirtazapine (Remeron) 7.5 mg QHS PO Last administered on 09/30/19at 20:46; Start 09/26/19 at 21:00 Amlodipine Besylate (Norvasc) 5 mg DAILY PO Last administered on 10/01/19 08:20; Start 09/26/19 at 11:30 Furosemide (Lasix) 40 mg BID PO Last administered on 10/01/19at 08:20; Start 09/29/19 at 09:00 Potassium Chloride (Klor-Con) 20 meq 1X ONCE PO ; Start 09/29/19 at 12:00; Stop 09/29/19 at 12:01; Status DC Lidocaine/ Epinephrine (LIDOCAINE 1%-EPI 1:100,000 Multi-Dose) 20 ml STK-MED ONCE .ROUTE ; Start 09/29/19 at 13:21; Stop 09/29/19 at 13:21; Status DC Midazolam HCl (Versed) 2 mg STK-MED ONCE .ROUTE ; Start 09/29/19 at 13:34; Stop 09/29/19 at 13:35; Status DC Fentanyl Citrate (Fentanyl 2ml Vial) 100 mcg STK-MED ONCE .ROUTE ; Start 09/29/19 at 13:35; Stop 09/29/19 at 13:35; Status DC Cefazolin Sodium (Ancef) 1 gm STK-MED ONCE IVP ; Start 09/29/19 at 13:39; Stop 09/29/19 at 13:40; Status DC Midazolam HCl (Versed) 1 mg 1X ONCE IV Last administered on 09/29/19at 14:18; Start 09/29/19 at 14:15; Stop 09/29/19 at 14:33; Status DC Fentanyl Citrate (Fentanyl 2ml Vial) 50 mcg 1X ONCE IV Last administered on 09/29/19at 14:18; Start 09/29/19 at 14:15; Stop 09/29/19 at 14:33; Status DC Cefazolin Sodium (Ancef) 1 gm 1X ONCE IVP Last administered on 09/29/19at 14:17; Start 09/29/19 at 14:15; Stop 09/29/19 at 14:33; Status DC Lidocaine HCl (Lidocaine 1% 20ml Vial) 12 ml 1X ONCE INJ ; Start 09/29/19 at 14:15; Stop 09/29/19 at 14:20; Status DC Lidocaine/ Epinephrine (LIDOCAINE 1%-EPI 1:100,000 Multi-Dose) 12 ml 1X ONCE INJ Last administered on 09/29/19at 14:02; Start 09/29/19 at 14:30; Stop 09/29/19 at 14:33; Status DC Sodium Chloride 1,000 ml @ 1,000 mls/hr Q1H PRN IV hypotension; Start 09/29/19 at 14:45; Stop 09/29/19 at 20:44; Status DC Sodium Chloride 1,000 ml @ 400 mls/hr Q2H30M PRN IV PATENCY; Start 09/29/19 at 14:45; Stop 09/30/19 at 02:44; Status DC Info (PHARMACY MONITORING -- do not chart) 1 each PRN DAILY PRN MC SEE COMMENTS; Start 09/29/19 at 15:00; Status UNV Info (PHARMACY MONITORING -- do not chart) 1 each PRN DAILY PRN MC SEE COMMENTS; Start 09/29/19 at 15:00 Sodium Chloride 1,000 ml @ 1,000 mls/hr Q1H PRN IV hypotension; Start 09/30/19 at 09:27; Stop 09/30/19 at 15:26; Status DC Albumin Human 200 ml @ 200 mls/hr 1X PRN PRN IV Hypotension; Start 09/30/19 at 09:30; Stop 09/30/19 at 15:29; Status DC Acetaminophen (Tylenol) 500 mg 1X PRN PRN PO MILD PAIN / TEMP > 100.3'F; Start 09/30/19 at 09:30; Stop 09/30/19 at 19:00; Status DC Diphenhydramine HCl (Benadryl) 25 mg 1X PRN PRN IV ITCHING; Start 09/30/19 at 0 9:30; Stop 09/30/19 at 19:00; Status DC Diphenhydramine HCl (Benadryl) 25 mg 1X PRN PRN IV ITCHING; Start 09/30/19 at 09:30; Stop 09/30/19 at 19:00; Status DC Sodium Chloride (Normal Saline Flush) 10 ml 1X PRN PRN IV AP catheter pack; Start 09/30/19 at 09:30; Stop 09/30/19 at 19:00; Status DC Sodium Chloride (Normal Saline Flush) 10 ml 1X PRN PRN IV WELFARE MANAGER catheter pack; Start 09/30/19 at 09:30; Stop 09/30/19 at 19:00; Status DC Sodium Chloride 1,000 ml @ 400 mls/hr Q2H30M PRN IV PATENCY; Start 09/30/19 at 09:27; Stop 09/30/19 at 21:26; Status DC Info (PHARMACY MONITORING -- do not chart) 1 each PRN DAILY PRN MC SEE COMMENTS; Start 09/30/19 at 09:30; Status Cancel Active Scripts Active Calcium (Calcium Carbonate) 500 Mg Tab.chew 1 Tab PO TID 30 Days Sodium Bicarbonate 650 Mg Tablet 2 Tab PO TID 30 Days Potassium Chloride (Potassium Chloride) 20 Meq Tablet.er 20 Meq PO BID 30 Days Mag-Oxide (Magnesium Oxide) 200 Mg Tablet 1 Tab PO TID 30 Days Imodium A-D (Loperamide HCl) 2 Mg Capsule 2 Mg PO TID 30 Days Metamucil (Psyllium Husk) 0.52 Gm Capsule 1 Cap PO DAILY 30 Days Reported Tramadol Hcl 50 Mg Tablet 50 Mg PO PRN Q8HRS PRN Flomax (Tamsulosin Hcl) 0.4 Mg Cap.er.24h 1 Cap PO DAILY Vitals/I & O Vital Sign - Last 24 Hours 09/30/19 09/30/19 09/30/19 09/30/19 15:25 17:45 18:45 19:42 Temp 97.6 97.7 97.6 97.7 Pulse 64 63 Resp 18 18 19 16 B/P (MAP) 98/60 (73) 116/71 (86) Pulse Ox 98 98 95 O2 Delivery Nasal Cannula Nasal Cannula Nasal Cannula Nasal Cannula O2 Flow Rate 2.0 2.0 2.0 2.0 09/30/19 09/30/19 10/01/19 10/01/19 20:00 23:49 03:05 07:15 Temp 97.5 97.4 97.4 97.5 97.4 97.4 Pulse 58 60 60 Resp 16 16 20 B/P (MAP) 106/64 (78) 102/60 (74) 111/67 (82) Pulse Ox 100 97 98 O2 Delivery Nasal Cannula Nasal Cannula Nasal Cannula Nasal Cannula O2 Flow Rate 2.0 2.0 2.0 2.0 10/01/19 10/01/19 10/01/19 10/01/19 08:00 08:20 08:21 09:21 Pulse 60 Resp 18 18 B/P (MAP) 111/67 Pulse Ox 98 O2 Delivery Nasal Cannula Nasal Cannula Nasal Cannula O2 Flow Rate 2.0 2.0 2.0 10/01/19 11:33 Temp 98.0 98.0 Pulse 64 Resp 18 B/P (MAP) 109/65 (80) Pulse Ox 98 O2 Delivery Nasal Cannula O2 Flow Rate 2.0 Intake and Output 09/30/19 09/30/19 10/01/19 15:00 23:00 07:00 Intake Total 200 ml 200 ml 200 ml Output Total 400 ml 850 ml 1200 ml Balance -200 ml -650 ml -1000 ml Nutrition Consultation Dietary Evaluation: Recommendations by RD: Dietary education by RD, Increase Calorie Intake, Protein supplementation Comments: REC continue renal diet renal oral supplements - Nepro bid for HD Expected Outcomes/Goals: to meet >75% est nutr needs- goal ongoing Malnutrition Findings: Food and Nutrition Intake (Mod: <75% est energy req 7days Weight Status: Appropriate [facility] MD October 01, 2019 13:49
[2019-10-01 15:26] VITALS: BP 105/55
[2019-10-01 19:00] VITALS: BP 111/63
[2019-10-01] MEDS: PSYLLIUM HUSK (SUGAR FREE) 1 PKT PACKET PO SCH (21:20)
[2019-10-01] MEDS: MIRTAZAPINE 7.5 MG TABLET. PO SCH (21:20)
[2019-10-01 23:01] VITALS: BP 114/60
[2019-10-02 03:37] VITALS: BP 135/68
[2019-10-02] MEDS: HEPARIN for SUB-Q USE 5,000 UNIT/ML VIAL. SQ SCH ×3 (06:20→21:08)
[2019-10-02 07:20] VITALS: BP 110/71
[2019-10-02] MEDS ORDERED: IV NORMAL SALINE 1000ML BAG 1,000 ML IV PRN ×2 (07:30)
[2019-10-02] MEDS ORDERED: ALBUMIN HUMAN 25% 200 ML IV PRN (07:30)
[2019-10-02 09:03] LABS: CALCIUM 8.4 mg/dL (8.5-10.1); CREATININE 2.9 mg/dL (0.7-1.3); POTASSIUM 3.6 mmol/L (3.5-5.1)
[2019-10-02] MEDS ORDERED: DIALYSIS PATIENT. MC PRN ×2 (09:30)
[2019-10-02 11:55] VITALS: BP 125/66
[2019-10-02] MEDS: CALCIUM CARBONATE 500 MG TABLET PO SCH ×3 (12:00→17:33)
[2019-10-02] MEDS: LOPERAMIDE 2 MG CAPSULE PO SCH ×3 (12:07→21:01)
[2019-10-02] MEDS: amLODIPine BESYLATE 5 MG TABLET PO SCH (12:07)
[2019-10-02] MEDS: FUROSEMIDE 40 MG TABLET. PO SCH ×2 (12:07→21:01)
[2019-10-02] MEDS: MAGNESIUM OXIDE 400 MG TABLET PO SCH ×3 (12:08→21:01)
[2019-10-02] MEDS: TAMSULOSIN 0.4 MG CAP.ER.24H. PO SCH (12:08)
[2019-10-02] MEDS: POTASSIUM CHLORIDE 20 MEQ TABLET.ER. PO SCH ×2 (12:08→17:32)
--- NOTE | 2019-10-02 12:32 | PDOC ---
Dialysis Progress Note Dialysis Note Dialysis Note Late entry Seen at the end of Hemodialysis, tolerated treatment Well but clotted early and had to be taken off Vitals on Hemodialysis: 129/59 56 irreg afeb RR 16 General Appearance: Awake and alert Neck: No JVD or JVP Chest: CTA Shane Heart: S1 S2 Abdomen - Soft NTND Extremities - No Edema ESRD: Dialysis as below F 180 NR 3.5 Hrs, patient had to be taken off for 3 hours due to clotting system 4 K 2.5 Ca 140 Na 35 HC03 Qb 350 + Qd 500+ Heparin 0 Units Uf to dry weight as tolerated May give 25-50 gms of 25% Albumin if needed to maintain Hemodynamic stability Treatment plan reviewed and discussed with certified anesthesiologist assistant Vitals Vital Signs Vital Signs Date Time Temp Pulse Resp B/P (MAP) Pulse Ox O2 Delivery O2 Flow Rate FiO2 10/02/19 12:07 68 110/71 10/02/19 11:55 97.8 18 96 Room Air 97.8 10/02/19 08:00 2.0 Labs Last Labs Laboratory Tests Test 10/02/19 08:35 Sodium Level 135 mmol/L (136-145) Potassium Level 3.6 mmol/L (3.5-5.1) Chloride Level 100 mmol/L (98-107) Carbon Dioxide Level 28 mmol/L (21-32) Anion Gap 7 (6-14) Blood Urea Nitrogen 32 mg/dL (8-26) Creatinine 2.9 mg/dL (0.7-1.3) Estimated GFR (Cockcroft-Gault) 21.0 Glucose Level 131 mg/dL (70-99) Calcium Level 8.4 mg/dL (8.5-10.1) Laboratory Tests Test 10/02/19 08:35 Sodium Level 135 mmol/L (136-145) Potassium Level 3.6 mmol/L (3.5-5.1) Chloride Level 100 mmol/L (98-107) Carbon Dioxide Level 28 mmol/L (21-32) Anion Gap 7 (6-14) Blood Urea Nitrogen 32 mg/dL (8-26) Creatinine 2.9 mg/dL (0.7-1.3) Estimated GFR (Cockcroft-Gault) 21.0 Glucose Level 131 mg/dL (70-99) Calcium Level 8.4 mg/dL (8.5-10.1) ENID SAM MD October 02, 2019 12:32
[2019-10-02 15:04] VITALS: BP 114/66
--- NOTE | 2019-10-02 18:56 | PDOC ---
PROGRESS NOTES Chief Complaint Chief Complaint Assessment/Plan A/P: Acute on chronic diastolic (congestive) heart failure - will continue diuresis with IV lasix. Cont BB, statin, ASA. Cr. precludes MEDINA/ARB therapy. SUHAS on Chronic renal failure, stage 4 (severe) - likely vasomotor nephropathy, cardiorenal. Patient will have tunneled catheter placed today, dialysis as per nephrology j2ee consultant Bilateral pleural effusions - Will diurese, likely CHF related. Acute hypoxic respiratory failure - likely related to above. Will diurese, wean O2 as tolerated Colorectal cancer in remission - s/p diverting ileostomy. Stoma care ordered Elevated troponin - likely demand ischemia given acute CHF exacerbation Loss of appetite - will start on remeron Insomnia - as above Plan: COVID testing still pending Dialysis as per j2ee consultant FEN - Renal diet PPX - heparin FULL CODE Dispo - inpatient for CHF exacerbation 2 midnights. History of Present Illness History of Present Illness No acute events reported overnight, case discussed with nursing staff patient in no acute distress no complaints during my visit Vitals Vitals Vital Signs Date Time Temp Pulse Resp B/P (MAP) Pulse Ox O2 Delivery O2 Flow Rate FiO2 10/02/19 15:04 97.6 66 20 114/66 (82) 98 Room Air 97.6 10/02/19 08:00 2.0 Physical Exam Physical Exam General: Alert, Oriented X3, Cooperative, moderate distress HEENT: Atraumatic, PERRLA, EOMI, Mucous membr. moist/pink Lungs: Other (Bibasilar crackles) Heart: S1S2, RRR, no thrills, no rubs, no gallops, no murmurs Abdomen: Normal bowel sounds, Soft, No tenderness, No hepatosplenomegaly, No masses Rectal Exam: not examined Extremities: No clubbing, No cyanosis, No edema, Normal pulses, No tenderness/swelling Skin: No rashes, No breakdown, No significant lesion Neuro: Normal speech, Strength at 5/5 X4 ext, Normal tone, Sensation intact, Cranial nerves 3-12 NL, Reflexes 2+ Psych/Mental Status: Mental status NL, Mood NL General: Alert, Oriented X3, No acute distress Heart: Regular rate Abdomen: Normal bowel sounds, Soft, No tenderness Extremities: No cyanosis Skin: No rashes, No breakdown, No significant lesion Labs LABS Laboratory Tests Test 10/02/19 08:35 Sodium Level 135 mmol/L (136-145) Potassium Level 3.6 mmol/L (3.5-5.1) Chloride Level 100 mmol/L (98-107) Carbon Dioxide Level 28 mmol/L (21-32) Anion Gap 7 (6-14) Blood Urea Nitrogen 32 mg/dL (8-26) Creatinine 2.9 mg/dL (0.7-1.3) Estimated GFR (Cockcroft-Gault) 21.0 Glucose Level 131 mg/dL (70-99) Calcium Level 8.4 mg/dL (8.5-10.1) Comment Review of Relevant I have reviewed the following items salome (where applicable) has been applied. Labs Laboratory Tests Test 10/02/19 08:35 Sodium Level 135 mmol/L (136-145) Potassium Level 3.6 mmol/L (3.5-5.1) Chloride Level 100 mmol/L (98-107) Carbon Dioxide Level 28 mmol/L (21-32) Anion Gap 7 (6-14) Blood Urea Nitrogen 32 mg/dL (8-26) Creatinine 2.9 mg/dL (0.7-1.3) Estimated GFR (Cockcroft-Gault) 21.0 Glucose Level 131 mg/dL (70-99) Calcium Level 8.4 mg/dL (8.5-10.1) Laboratory Tests Test 10/02/19 08:35 Sodium Level 135 mmol/L (136-145) Potassium Level 3.6 mmol/L (3.5-5.1) Chloride Level 100 mmol/L (98-107) Carbon Dioxide Level 28 mmol/L (21-32) Anion Gap 7 (6-14) Blood Urea Nitrogen 32 mg/dL (8-26) Creatinine 2.9 mg/dL (0.7-1.3) Estimated GFR (Cockcroft-Gault) 21.0 Glucose Level 131 mg/dL (70-99) Calcium Level 8.4 mg/dL (8.5-10.1) Medications Current Medications Potassium Chloride (Klor-Con) 40 meq 1X ONCE PO Last administered on 09/25/19at 21:00; Start 09/25/19 at 20:15; Stop 09/25/19 at 20:16; Status DC Ondansetron HCl (Zofran) 4 mg PRN Q4HRS PRN IV NAUSEA/VOMITING; Start 09/25/19 at 21:15 Acetaminophen (Tylenol) 650 mg PRN Q4HRS PRN PO TEMP OVER 100.4F OR MILD PAIN Last administered on 09/26/19 23:13; Start 09/25/19 at 21:15 Docusate Sodium (Colace) 100 mg PRN BID PRN PO HARD STOOLS; Start 09/25/19 at 21:15 Loperamide HCl (Imodium) 2 mg TID PO Last administered on 10/02/19 15:04; Start 09/25/19 at 21:45 Potassium Chloride (Klor-Con) 20 meq BIDWMEALS PO Last administered on 10/02/19 17:32; Start 09/26/19 at 08:00 Sodium Bicarbonate (Sodium Bicarbonate) 1,300 mg TIDWMEALS PO Last administered on 09/28/19 11:32; Start 09/26/19 at 08:00; Stop 09/28/19 at 11:52; Status DC Tamsulosin HCl (Flomax) 0.4 mg DAILY PO Last administered on 10/02/19 12:08; Start 09/26/19 at 09:00 Tramadol HCl (Ultram) 50 mg PRN Q8HRS PRN PO MODERATE PAIN, SEVERE PAIN Last administered on 10/01/19 08:21; Start 09/25/19 at 21:30 Calcium Carbonate/ Glycine (Oscal) 500 mg TIDWMEALS PO Last administered on 10/02/19 17:33; Start 09/26/19 at 08:00 Magnesium Oxide (Magnesium Oxide) 400 mg TID PO Last administered on 10/02/19 15:04; Start 09/26/19 at 09:00 Psyllium Hydrophilic Mucilloid (Metamucil Fiber Packet) 1 pkt QHS PO Last administered on 09/30/19 20:46; Start 09/25/19 at 21:30 Furosemide (Lasix) 40 mg BID92 IVP Last administered on 09/28/19 08:36; Start 09/26/19 at 09:00; Stop 09/28/19 at 11:50; Status DC Heparin Sodium (Porcine) (Heparin Sodium) 5,000 unit Q8HRS SQ Last administered on 5/23/20at 15:11; Start 09/25/19 at 22:00 Mirtazapine (Remeron) 7.5 mg QHS PO Last administered on 10/01/19at 21:20; Start 09/26/19 at 21:00 Amlodipine Besylate (Norvasc) 5 mg DAILY PO Last administered on 10/02/19at 12:07; Start 09/26/19 at 11:30 Furosemide (Lasix) 40 mg BID PO Last administered on 10/02/19at 12:07; Start 09/29/19 at 09:00 Potassium Chloride (Klor-Con) 20 meq 1X ONCE PO ; Start 09/29/19 at 12:00; Stop 09/29/19 at 12:01; Status DC Lidocaine/ Epinephrine (LIDOCAINE 1%-EPI 1:100,000 Multi-Dose) 20 ml STK-MED ONCE .ROUTE ; Start 09/29/19 at 13:21; Stop 09/29/19 at 13:21; Status DC Midazolam HCl (Versed) 2 mg STK-MED ONCE .ROUTE ; Start 09/29/19 at 13:34; Stop 09/29/19 at 13:35; Status DC Fentanyl Citrate (Fentanyl 2ml Vial) 100 mcg STK-MED ONCE .ROUTE ; Start 09/29/19 at 13:35; Stop 09/29/19 at 13:35; Status DC Cefazolin Sodium (Ancef) 1 gm STK-MED ONCE IVP ; Start 09/29/19 at 13:39; Stop 09/29/19 at 13:40; Status DC Midazolam HCl (Versed) 1 mg 1X ONCE IV Last administered on 09/29/19at 14:18; Start 09/29/19 at 14:15; Stop 09/29/19 at 14:33; Status DC Fentanyl Citrate (Fentanyl 2ml Vial) 50 mcg 1X ONCE IV Last administered on 09/29/19at 14:18; Start 09/29/19 at 14:15; Stop 09/29/19 at 14:33; Status DC Cefazolin Sodium (Ancef) 1 gm 1X ONCE IVP Last administered on 09/29/19at 14:17; Start 09/29/19 at 14:15; Stop 09/29/19 at 14:33; Status DC Lidocaine HCl (Lidocaine 1% 20ml Vial) 12 ml 1X ONCE INJ ; Start 09/29/19 at 14:15; Stop 09/29/19 at 14:20; Status DC Lidocaine/ Epinephrine (LIDOCAINE 1%-EPI 1:100,000 Multi-Dose) 12 ml 1X ONCE INJ Last administered on 09/29/19at 14:02; Start 09/29/19 at 14:30; Stop 09/29/19 at 14:33; Status DC Sodium Chloride 1,000 ml @ 1,000 mls/hr Q1H PRN IV hypotension; Start 09/29/19 at 14:45; Stop 09/29/19 at 20:44; Status DC Sodium Chloride 1,000 ml @ 400 mls/hr Q2H30M PRN IV PATENCY; Start 09/29/19 at 14:45; Stop 09/30/19 at 02:44; Status DC Info (PHARMACY MONITORING -- do not chart) 1 each PRN DAILY PRN MC SEE COMMENTS; Start 09/29/19 at 15:00; Status UNV Info (PHARMACY MONITORING -- do not chart) 1 each PRN DAILY PRN MC SEE COMMENTS; Start 09/29/19 at 15:00 Sodium Chloride 1,000 ml @ 1,000 mls/hr Q1H PRN IV hypotension; Start 09/30/19 at 09:27; Stop 09/30/19 at 15:26; Status DC Albumin Human 200 ml @ 200 mls/hr 1X PRN PRN IV Hypotension; Start 09/30/19 at 09:30; Stop 09/30/19 at 15:29; Status DC Acetaminophen (Tylenol) 500 mg 1X PRN PRN PO MILD PAIN / TEMP > 100.3'F; Start 09/30/19 at 09:30; Stop 09/30/19 at 19:00; Status DC Diphenhydramine HCl (Benadryl) 25 mg 1X PRN PRN IV ITCHING; Start 09/30/19 at 09:30; Stop 09/30/19 at 19:00; Status DC Diphenhydramine HCl (Benadryl) 25 mg 1X PRN PRN IV ITCHING; Start 09/30/19 at 09:30; Stop 09/30/19 at 19:00; Status DC Sodium Chloride (Normal Saline Flush) 10 ml 1X PRN PRN IV AP catheter pack; Start 09/30/19 at 09:30; Stop 09/30/19 at 19:00; Status DC Sodium Chloride (Normal Saline Flush) 10 ml 1X PRN PRN IV CUTTER AND EDGE TRIMMER catheter pack; Start 09/30/19 at 09:30; Stop 09/30/19 at 19:00; Status DC Sodium Chloride 1,000 ml @ 400 mls/hr Q2H30M PRN IV PATENCY; Start 09/30/19 at 09:27; Stop 09/30/19 at 21:26; Status DC Info (PHARMACY MONITORING -- do not chart) 1 each PRN DAILY PRN MC SEE COMMENTS; Start 09/30/19 at 09:30; Status Cancel Sodium Chloride 1,000 ml @ 1,000 mls/hr Q1H PRN IV hypotension; Start 10/02/19 at 07:30; Stop 10/02/19 at 13:29; Status DC Albumin Human 200 ml @ 200 mls/hr 1X PRN PRN IV Hypotension; Start 10/02/19 at 07:30; Stop 10/02/19 at 13:29; Status DC Sodium Chloride 1,000 ml @ 400 mls/hr Q2H30M PRN IV PATENCY; Start 10/02/19 at 07:30; Stop 10/02/19 at 19:29 Info (PHARMACY MONITORING -- do not chart) 1 each PRN DAILY PRN MC SEE COMMENTS; Start 10/02/19 at 09:30; Status UNV Info (PHARMACY MONITORING -- do not chart) 1 each PRN DAILY PRN MC SEE COMMENTS; Start 10/02/19 at 09:30; Status UNV Active Scripts Active Calcium (Calcium Carbonate) 500 Mg Tab.chew 1 Tab PO TID 30 Days Sodium Bicarbonate 650 Mg Tablet 2 Tab PO TID 30 Days Potassium Chloride (Potassium Chloride) 20 Meq Tablet.er 20 Meq PO BID 30 Days Mag-Oxide (Magnesium Oxide) 200 Mg Tablet 1 Tab PO TID 30 Days Imodium A-D (Loperamide HCl) 2 Mg Capsule 2 Mg PO TID 30 Days Metamucil (Psyllium Husk) 0.52 Gm Capsule 1 Cap PO DAILY 30 Days Reported Tramadol Hcl 50 Mg Tablet 50 Mg PO PRN Q8HRS PRN Flomax (Tamsulosin Hcl) 0.4 Mg Cap.er.24h 1 Cap PO DAILY Vitals/I & O Vital Sign - Last 24 Hours 510/01/19 10/01/19 10/02/19 19:00 20:10 23:01 03:37 Temp 98.2 97.8 97.2 98.2 97.8 97.2 Pulse 60 68 59 Resp 18 18 18 B/P (MAP) 111/63 (79) 114/60 (78) 135/68 (90) Pulse Ox 97 98 95 O2 Delivery Nasal Cannula Nasal Cannula Nasal Cannula Nasal Cannula O2 Flow Rate 2.0 10/02/19 10/02/19 10/02/19 10/02/19 07:20 08:00 11:55 12:07 Temp 98.1 97.8 98.1 97.8 Pulse 68 66 68 Resp 18 18 B/P (MAP) 110/71 (84) 125/66 (85) 110/71 Pulse Ox 96 96 O2 Delivery Room Air Nasal Cannula Room Air O2 Flow Rate 2.0 10/02/19 15:04 Temp 97.6 97.6 Pulse 66 Resp 20 B/P (MAP) 114/66 (82) Pulse Ox 98 O2 Delivery Room Air Intake and Output 10/01/19 10/01/19 10/02/19 15:00 23:00 07:00 Intake Total 450 ml 300 ml Output Total 500 ml 1000 ml 225 ml Balance -50 ml -700 ml -225 ml Nutrition Consultation Dietary Evaluation: Recommendations by RD: Dietary education by RD, Increase Calorie Intake, Protei n supplementation Comments: REC continue renal diet renal oral supplements - Nepro bid for HD Expected Outcomes/Goals: to meet >75% est nutr needs- goal ongoing Malnutrition Findings: Food and Nutrition Intake (Mod: <75% est energy req 7days Weight Status: Appropriate [facility] MD October 02, 2019 18:56
[2019-10-02 19:00] VITALS: BP 106/20
[2019-10-02] MEDS: PSYLLIUM HUSK (SUGAR FREE) 1 PKT PACKET PO SCH (21:00)
[2019-10-02] MEDS: MIRTAZAPINE 7.5 MG TABLET. PO SCH (21:01)
[2019-10-02 23:00] VITALS: BP 127/65
[2019-10-03 03:01] VITALS: BP 123/67
[2019-10-03] MEDS: HEPARIN for SUB-Q USE 5,000 UNIT/ML VIAL. SQ SCH ×3 (05:46→20:59)
[2019-10-03 07:15] VITALS: BP 117/68
[2019-10-03] MEDS: FUROSEMIDE 40 MG TABLET. PO SCH (08:29)
[2019-10-03] MEDS: MAGNESIUM OXIDE 400 MG TABLET PO SCH (08:29)
[2019-10-03] MEDS: LOPERAMIDE 2 MG CAPSULE PO SCH ×3 (08:29→20:53)
[2019-10-03] MEDS: TAMSULOSIN 0.4 MG CAP.ER.24H. PO SCH (08:30)
[2019-10-03] MEDS: amLODIPine BESYLATE 5 MG TABLET PO SCH (08:30)
[2019-10-03] MEDS: CALCIUM CARBONATE 500 MG TABLET PO SCH ×3 (08:30→17:00)
[2019-10-03] MEDS: POTASSIUM CHLORIDE 20 MEQ TABLET.ER. PO SCH (08:30)
[2019-10-03 11:00] VITALS: BP 116/70
--- NOTE | 2019-10-03 11:03 | PDOC ---
PROGRESS NOTES Chief Complaint Chief Complaint Assessment/Plan A/P: Acute on chronic diastolic (congestive) heart failure - will continue diuresis with IV lasix. Cont BB, statin, ASA. Cr. precludes MEDINA/ARB therapy. SUHAS on Chronic renal failure, stage 4 (severe) - likely vasomotor nephropathy, cardiorenal. Patient will have tunneled catheter placed today, dialysis as per nephrology specialty development consultant Bilateral pleural effusions - Will diurese, likely CHF related. Acute hypoxic respiratory failure - likely related to above. Will diurese, wean O2 as tolerated Colorectal cancer in remission - s/p diverting ileostomy. Stoma care ordered Elevated troponin - likely demand ischemia given acute CHF exacerbation Loss of appetite - will start on remeron Insomnia - as above Plan: COVID testing still pending, it is not reported on the computer unless it bec omes positive. Dialysis as per specialty development consultant MARKO thakur with outpatient dialysis set up FEN - Renal diet PPX - heparin FULL CODE Dispo - inpatient for CHF exacerbation 2 midnights. History of Present Illness History of Present Illness No acute events reported overnight, case discussed with nursing staff patient in no acute distress no complaints during my visit Vitals Vitals Vital Signs Date Time Temp Pulse Resp B/P (MAP) Pulse Ox O2 Delivery O2 Flow Rate FiO2 10/03/19 08:30 62 117/68 10/03/19 08:00 Room Air 1.5 10/03/19 07:15 97.9 16 96 97.9 Physical Exam Physical Exam General: Alert, Oriented X3, Cooperative, moderate distress HEENT: Atraumatic, PERRLA, EOMI, Mucous membr. moist/pink Lungs: Other (Bibasilar crackles) Heart: S1S2, RRR, no thrills, no rubs, no gallops, no murmurs Abdomen: Normal bowel sounds, Soft, No tenderness, No hepatosplenomegaly, No masses Rectal Exam: not examined Extremities: No clubbing, No cyanosis, No edema, Normal pulses, No tenderness/swelling Skin: No rashes, No breakdown, No significant lesion Neuro: Normal speech, Strength at 5/5 X4 ext, Normal tone, Sensation intact, Cranial nerves 3-12 NL, Reflexes 2+ Psych/Mental Status: Mental status NL, Mood NL General: Alert, Oriented X3, No acute distress Heart: Regular rate Abdomen: Normal bowel sounds, Soft, No tenderness Extremities: No cyanosis Skin: No rashes, No breakdown, No significant lesion Comment Review of Relevant I have reviewed the following items salome (where applicable) has been applied. Labs Laboratory Tests Test 10/02/19 08:35 Sodium Level 135 mmol/L (136-145) Potassium Level 3.6 mmol/L (3.5-5.1) Chloride Level 100 mmol/L (98-107) Carbon Dioxide Level 28 mmol/L (21-32) Anion Gap 7 (6-14) Blood Urea Nitrogen 32 mg/dL (8-26) Creatinine 2.9 mg/dL (0.7-1.3) Estimated GFR (Cockcroft-Gault) 21.0 Glucose Level 131 mg/dL (70-99) Calcium Level 8.4 mg/dL (8.5-10.1) Medications Current Medications Potassium Chloride (Klor-Con) 40 meq 1X ONCE PO Last administered on 09/25/19at 21:00; Start 09/25/19 at 20:15; Stop 09/25/19 at 20:16; Status DC Ondansetron HCl (Zofran) 4 mg PRN Q4HRS PRN IV NAUSEA/VOMITING; Start 09/25/19 at 21:15 Acetaminophen (Tylenol) 650 mg PRN Q4HRS PRN PO TEMP OVER 100.4F OR MILD PAIN Last administered on 09/26/19at 23:13; Start 09/25/19 at 21:15 Docusate Sodium (Colace) 100 mg PRN BID PRN PO HARD STOOLS; Start 09/25/19 at 21:15 Loperamide HCl (Imodium) 2 mg TID PO Last administered on 10/03/19at 08:29; Start 09/25/19 at 21:45 Potassium Chloride (Klor-Con) 20 meq BIDWMEALS PO Last administered on 10/03/19 08:30; Start 09/26/19 at 08:00 Sodium Bicarbonate (Sodium Bicarbonate) 1,300 mg TIDWMEALS PO Last administered on 09/28/19at 11:32; Start 09/26/19 at 08:00; Stop 09/28/19 at 11:52; Status DC Tamsulosin HCl (Flomax) 0.4 mg DAILY PO Last administered on 10/03/19at 08:30; Start 09/26/19 at 09:00 Tramadol HCl (Ultram) 50 mg PRN Q8HRS PRN PO MODERATE PAIN, SEVERE PAIN Last administered on 10/01/19 08:21; Start 09/25/19 at 21:30 Calcium Carbonate/ Glycine (Oscal) 500 mg TIDWMEALS PO Last administered on 10/03/19 08:30; Start 09/26/19 at 08:00 Magnesium Oxide (Magnesium Oxide) 400 mg TID PO Last administered on 10/03/19 08:29; Start 09/26/19 at 09:00 Psyllium Hydrophilic Mucilloid (Metamucil Fiber Packet) 1 pkt QHS PO Last administered on 09/30/19 20:46; Start 09/25/19 at 21:30 Furosemide (Lasix) 40 mg BID92 IVP Last administered on 09/28/19 08:36; Start 09/26/19 at 09:00; Stop 09/28/19 at 11:50; Status DC Heparin Sodium (Porcine) (Heparin Sodium) 5,000 unit Q8HRS SQ Last administered on 10/03/19 05:46; Start 09/25/19 at 22:00 Mirtazapine (Remeron) 7.5 mg QHS PO Last administered on 10/02/19 21:01; Start 09/26/19 at 21:00 Amlodipine Besylate (Norvasc) 5 mg DAILY PO Last administered on 10/03/19 08:30; Start 09/26/19 at 11:30 Furosemide (Lasix) 40 mg BID PO Last administered on 10/03/19 08:29; Start 09/29/19 at 09:00 Potassium Chloride (Klor-Con) 20 meq 1X ONCE PO ; Start 09/29/19 at 12:00; Stop 09/29/19 at 12:01; Status DC Lidocaine/ Epinephrine (LIDOCAINE 1%-EPI 1:100,000 Multi-Dose) 20 ml STK-MED ONCE .ROUTE ; Start 09/29/19 at 13:21; Stop 09/29/19 at 13:21; Status DC Midazolam HCl (Versed) 2 mg STK-MED ONCE .ROUTE ; Start 09/29/19 at 13:34; Stop 09/29/19 at 13:35; Status DC Fentanyl Citrate (Fentanyl 2ml Vial) 100 mcg STK-MED ONCE .ROUTE ; Start 09/29/19 at 13:35; Stop 09/29/19 at 13:35; Status DC Cefazolin Sodium (Ancef) 1 gm STK-MED ONCE IVP ; Start 09/29/19 at 13:39; Stop 09/29/19 at 13:40; Status DC Midazolam HCl (Versed) 1 mg 1X ONCE IV Last administered on 09/29/19at 14:18; Start 09/29/19 at 14:15; Stop 09/29/19 at 14:33; Status DC Fentanyl Citrate (Fentanyl 2ml Vial) 50 mcg 1X ONCE IV Last administered on 09/29/19at 14:18; Start 09/29/19 at 14:15; Stop 09/29/19 at 14:33; Status DC Cefazolin Sodium (Ancef) 1 gm 1X ONCE IVP Last administered on 09/29/19at 14:17; Start 09/29/19 at 14:15; Stop 09/29/19 at 14:33; Status DC Lidocaine HCl (Lidocaine 1% 20ml Vial) 12 ml 1X ONCE INJ ; Start 09/29/19 at 14:15; Stop 09/29/19 at 14:20; Status DC Lidocaine/ Epinephrine (LIDOCAINE 1%-EPI 1:100,000 Multi-Dose) 12 ml 1X ONCE INJ Last administered on 09/29/19at 14:02; Start 09/29/19 at 14:30; Stop at 14:33; Status DC Sodium Chloride 1,000 ml @ 1,000 mls/hr Q1H PRN IV hypotension; Start 09/29/19 at 14:45; Stop 09/29/19 at 20:44; Status DC Sodium Chloride 1,000 ml @ 400 mls/hr Q2H30M PRN IV PATENCY; Start 09/29/19 at 14:45; Stop 09/30/19 at 02:44; Status DC Info (PHARMACY MONITORING -- do not chart) 1 each PRN DAILY PRN MC SEE COMMENTS; Start 09/29/19 at 15:00; Status UNV Info (PHARMACY MONITORING -- do not chart) 1 each PRN DAILY PRN MC SEE COMMENTS; Start 09/29/19 at 15:00 Sodium Chloride 1,000 ml @ 1,000 mls/hr Q1H PRN IV hypotension; Start 09/30/19 at 09:27; Stop 09/30/19 at 15:26; Status DC Albumin Human 200 ml @ 200 mls/hr 1X PRN PRN IV Hypotension; Start 09/30/19 at 09:30; Stop 09/30/19 at 15:29; Status DC Acetaminophen (Tylenol) 500 mg 1X PRN PRN PO MILD PAIN / TEMP > 100.3'F; Start 09/30/19 at 09:30; Stop 09/30/19 at 19:00; Status DC Diphenhydramine HCl (Benadryl) 25 mg 1X PRN PRN IV ITCHING; Start 09/30/19 at 09:30; Stop 09/30/19 at 19:00; Status DC Diphenhydramine HCl (Benadryl) 25 mg 1X PRN PRN IV ITCHING; Start 09/30/19 at 09:30; Stop 09/30/19 at 19:00; Status DC Sodium Chloride (Normal Saline Flush) 10 ml 1X PRN PRN IV AP catheter pack; Start 09/30/19 at 09:30; Stop 09/30/19 at 19:00; Status DC Sodium Chloride (Normal Saline Flush) 10 ml 1X PRN PRN IV RIVER PILOT catheter pack; Start 09/30/19 at 09:30; Stop 09/30/19 at 19:00; Status DC Sodium Chloride 1,000 ml @ 400 mls/hr Q2H30M PRN IV PATENCY; Start 09/30/19 at 09:27; Stop 09/30/19 at 21:26; Status DC Info (PHARMACY MONITORING -- do not chart) 1 each PRN DAILY PRN MC SEE COMMENTS; Start 09/30/19 at 09:30; Status Cancel Sodium Chloride 1,000 ml @ 1,000 mls/hr Q1H PRN IV hypotension; Start 10/02/19 at 07:30; Stop 10/02/19 at 13:29; Status DC Albumin Human 200 ml @ 200 mls/hr 1X PRN PRN IV Hypotension; Start 10/02/19 at 07:30; Stop 10/02/19 at 13:29; Status DC Sodium Chloride 1,000 ml @ 400 mls/hr Q2H30M PRN IV PATENCY; Start 10/02/19 at 07:30; Stop 10/02/19 at 19:29; Status DC Info (PHARMACY MONITORING -- do not chart) 1 each PRN DAILY PRN MC SEE COMMENTS; Start 10/02/19 at 09:30; Status UNV Info (PHARMACY MONITORING -- do not chart) 1 each PRN DAILY PRN MC SEE COMMENTS; Start 10/02/19 at 09:30; Status UNV Active Scripts Active Calcium (Calcium Carbonate) 500 Mg Tab.chew 1 Tab PO TID 30 Days Sodium Bicarbonate 650 Mg Tablet 2 Tab PO TID 30 Days Potassium Chloride (Potassium Chloride) 20 Meq Tablet.er 20 Meq PO BID 30 Days Mag-Oxide (Magnesium Oxide) 200 Mg Tablet 1 Tab PO TID 30 Days Imodium A-D (Loperamide HCl) 2 Mg Capsule 2 Mg PO TID 30 Days Metamucil (Psyllium Husk) 0.52 Gm Capsule 1 Cap PO DAILY 30 Days Reported Tramadol Hcl 50 Mg Tablet 50 Mg PO PRN Q8HRS PRN Flomax (Tamsulosin Hcl) 0.4 Mg Cap.er.24h 1 Cap PO DAILY Vitals/I & O Vital Sign - Last 24 Hours 10/02/19 10/02/19 10/02/19 10/02/19 11:55 12:07 15:04 19:00 Temp 97.8 97.6 98.0 97.8 97.6 98.0 Pulse 66 68 66 62 Resp 18 20 20 B/P (MAP) 125/66 (85) 110/71 114/66 (82) 106/20 (48) Pulse Ox 96 98 97 O2 Delivery Room Air Room Air Nasal Cannula 10/02/19 10/02/19 10/03/19 10/03/19 19:45 23:00 03:01 07:15 Temp 97.9 97.7 97.9 97.9 97.7 97.9 Pulse 69 58 62 Resp 18 18 16 B/P (MAP) 127/65 (85) 123/67 (85) 117/68 (84) Pulse Ox 98 98 96 O2 Delivery Nasal Cannula Nasal Cannula Nasal Cannula Nasal Cannula O2 Flow Rate 1.5 10/03/19 10/03/19 08:00 08:30 Pulse 62 B/P (MAP) 117/68 O2 Delivery Room Air O2 Flow Rate 1.5 Intake and Output 10/02/19 10/02/19 10/03/19 15:00 23:00 07:00 Intake Total 400 ml Output Total 300 ml 300 ml 700 ml Balance 100 ml -300 ml -700 ml Nutrition Consultation Dietary Evaluation: Recommendations by RD: Dietary education by RD, Increase Calorie Intake, Protein supplementation Comments: REC continue renal diet renal oral supplements - Nepro bid for HD Expected Outcomes/Goals: to meet >75% est nutr needs- goal ongoing Malnutrition Findings: Food and Nutrition Intake (Mod: <75% est energy req 7days Weight Status: Appropriate [facility] SH[facility] MD October 03, 2019 11:03
--- NOTE | 2019-10-03 12:49 | PDOC ---
SUBJECTIVE ROS Follow-up for ESRD on hemodialysis Patient claims he was wiped out after dialysis yesterday. He claims he is regained some of his energy today. We discussed changes that the body goes through during dialysis and after CVS: no Orthopnea, no CP RESP: no SOB, no BERUMEN GI: no Nausea, no Vomiting : no Dysuria, no Urgency OBJECTIVE Vital Signs Vital Signs Date Time Temp Pulse Resp B/P (MAP) Pulse Ox O2 Delivery O2 Flow Rate FiO2 10/03/19 11:00 97.4 74 16 116/70 (85) 98 Nasal Cannula 2.0 97.4 I & 0 Intake and Output 10/03/19 07:00 Intake Total 400 ml Output Total 1300 ml Balance -900 ml Intake Oral 400 ml Output Urine Total 350 ml Stool Total 650 ml Other 300 ml PHYSICAL EXAM Physical Exam GEN: Awake, Oriented x 2, In no distress EYES: Vision Unchanged, Conjunctiva Normal EN: No EN Drainage, Mucous Membranes moist NECK: no JVD, min JVP, Supple, no Thyromegaly CVS: S1S2, Soft Murmur, No Gallop, No Rub,no Edema RESP: no Rales, no Rhonchi,no Acc. Muscle Use GI: BS + ve, NO Bruit, Non Tender, Non Distended : no CVA tenderness, no Suprapubic Tenderness DIAGNOSIS/ASSESSMENT Assessment & Plan ESRD: Current fluid and E-lyte (no labs today ) status does not necessitate emergent need for dialysis. Will re-evaluate for dialysis in the am and continue on TTSAT schedule. ANEMIA; no recent hemoglobin in our system. This will be checked with morning labs HTN: Current BP meds as reviewed. See orders for changes. BONE & MINERAL: Follow phosphorus levels and alter binder regimen as needed per dietary intake Lowish calcium: Anticipate this to improve with dialysis and correction of magnesium Patient currently on magnesium and potassium supplements. We will stop the same and prescribed a regular cardiac diet. Watch trend of potassium and phosphorus on the same Discussed Plan of Care with pt at bedside COMMENT/RELEVANT DATA Meds Current Medications Medications (Trade) Dose Ordered Sig/Richard Start Time Stop Time Status Last Admin Dose Admin Acetaminophen (Tylenol) 500 mg 1X PRN PRN 09/30/19 09:30 09/30/19 19:00 DC Albumin Human 200 ml @ 200 mls/hr 1X PRN PRN 10/02/19 07:30 10/02/19 13:29 DC Amlodipine Besylate (Norvasc) 5 mg DAILY 09/26/19 11:30 10/03/19 08:30 5 MG Calcium Carbonate/ Glycine (Oscal) 500 mg TIDWMEALS 09/26/19 08:00 10/03/19 08:30 500 MG Cefazolin Sodium (Ancef) 1 gm 1X ONCE 09/29/19 14:15 09/29/19 14:33 DC 09/29/19 14:17 1 GM Diphenhydramine HCl (Benadryl) 25 mg 1X PRN PRN 09/30/19 09:30 09/30/19 19:00 DC Docusate Sodium (Colace) 100 mg PRN BID PRN 09/25/19 21:15 Fentanyl Citrate (Fentanyl 2ml Vial) 50 mcg 1X ONCE 09/29/19 14:15 09/29/19 14:33 DC 09/29/19 14:18 50 MCG Furosemide (Lasix) 40 mg BID 09/29/19 09:00 10/03/19 08:29 40 MG Heparin Sodium (Porcine) (Heparin Sodium) 5,000 unit Q8HRS 09/25/19 22:00 10/03/19 05:46 5,000 UNIT Info (PHARMACY MONITORING -- do not chart) 1 each PRN DAILY PRN 10/02/19 09:30 UNV Lidocaine HCl (Lidocaine 1% 20ml Vial) 12 ml 1X ONCE 09/29/19 14:15 09/29/19 14:20 DC Lidocaine/ Epinephrine (LIDOCAINE 1%-EPI 1:100,000 Multi-Dose) 12 ml 1X ONCE 09/29/19 14:30 09/29/19 14:33 DC 09/29/19 14:02 12 ML Loperamide HCl (Imodium) 2 mg TID 09/25/19 21:45 10/03/19 08:29 2 MG Magnesium Oxide (Magnesium Oxide) 400 mg TID 09/26/19 09:00 10/03/19 08:29 400 MG Midazolam HCl (Versed) 1 mg 1X ONCE 09/29/19 14:15 09/29/19 14:33 DC 09/29/19 14:18 1 MG Mirtazapine (Remeron) 7.5 mg QHS 09/26/19 21:00 10/02/19 21:01 7.5 MG Ondansetron HCl (Zofran) 4 mg PRN Q4HRS PRN 09/25/19 21:15 Potassium Chloride (Klor-Con) 20 meq 1X ONCE 09/29/19 12:00 09/29/19 12:01 DC Psyllium Hydrophilic Mucilloid (Metamucil Fiber Packet) 1 pkt QHS 09/25/19 21:30 09/30/19 20:46 1 PKT Sodium Bicarbonate (Sodium Bicarbonate) 1,300 mg TIDWMEALS 09/26/19 08:00 09/28/19 11:52 DC 09/28/19 11:32 1,300 MG Sodium Chloride 1,000 ml @ 400 mls/hr Q2H30M PRN 10/02/19 07:30 10/02/19 19:29 DC Sodium Chloride (Normal Saline Flush) 10 ml 1X PRN PRN 09/30/19 09:30 09/30/19 19:00 DC Tamsulosin HCl (Flomax) 0.4 mg DAILY 09/26/19 09:00 10/03/19 08:30 0.4 MG Tramadol HCl (Ultram) 50 mg PRN Q8HRS PRN 09/25/19 21:30 10/01/19 08:21 50 MG Results All relevant outside records, renal labs, imaging studies, telemetry/EKG's were reviewed. ENID SAM MD October 03, 2019 12:49
[2019-10-03 15:03] VITALS: BP 123/62
[2019-10-03 19:00] VITALS: BP 114/65
[2019-10-03] MEDS: MIRTAZAPINE 7.5 MG TABLET. PO SCH (20:53)
[2019-10-03] MEDS: PSYLLIUM HUSK (SUGAR FREE) 1 PKT PACKET PO SCH (20:54)
[2019-10-03 23:00] VITALS: BP 111/60
[2019-10-04 03:00] VITALS: BP 115/58
[2019-10-04] MEDS: HEPARIN for SUB-Q USE 5,000 UNIT/ML VIAL. SQ SCH ×3 (06:22→22:34)
[2019-10-04 07:23] VITALS: BP 127/63
[2019-10-04] MEDS: TAMSULOSIN 0.4 MG CAP.ER.24H. PO SCH (09:08)
[2019-10-04] MEDS: MAGNESIUM OXIDE 400 MG TABLET PO SCH (09:08)
[2019-10-04] MEDS: LOPERAMIDE 2 MG CAPSULE PO SCH ×3 (09:09→20:07)
[2019-10-04] MEDS: CALCIUM CARBONATE 500 MG TABLET PO SCH ×3 (09:09→18:32)
[2019-10-04] MEDS: amLODIPine BESYLATE 5 MG TABLET PO SCH (09:09)
--- NOTE | 2019-10-04 10:36 | PDOC ---
PROGRESS NOTES Chief Complaint Chief Complaint Assessment/Plan A/P: Acute on chronic diastolic (congestive) heart failure - will continue diuresis with IV lasix. Cont BB, statin, ASA. Cr. precludes MEDINA/ARB therapy. SUHAS on Chronic renal failure, stage 4 (severe) - likely vasomotor nephropathy, cardiorenal. Patient will have tunneled catheter placed today, dialysis as per nephrology advisor consultant Bilateral pleural effusions - Will diurese, likely CHF related. Acute hypoxic respiratory failure - likely related to above. Will diurese, wean O2 as tolerated Colorectal cancer in remission - s/p diverting ileostomy. Stoma care ordered Elevated troponin - likely demand ischemia given acute CHF exacerbation Loss of appetite - will start on remeron Insomnia - as above Plan: COVID testing still pending, it is not reported on the computer unless it bec omes positive. Dialysis as per advisor consultant MARKO thakur with outpatient dialysis set up FEN - Renal diet PPX - heparin FULL CODE Dispo - inpatient for CHF exacerbation 2 midnights. History of Present Illness History of Present Illness Mr Puente is an 79yo M w/ PMHx Rectal Cancer s/p diverting ileostomy, diastolic CHF, CKD, ETOH use disorder in remission who presents to the emergency department at [facility] on 09/25/2019 with a several day history of progressive lightheadedness and feeling weak. He states the last time he felt like this he was in renal failure. Patient also states that he has been having shortness of breath dyspnea on exertion he is not making much urine. CXR revealed bilateral small effusions and bibasilar opacities adjacent to effusions left greater than right. Labs significant for BNP greater than 35,000, WBC 9.2, Hb 11.6, platelets 313, albumin 3.3. NA 140, K3.4, BUN 43, CR 3.5, glucose 123, troponin 0 0.128, repeat troponin 0 0.099. EKG: Normal sinus rhythm rate of [address]-T changes He was given 80 mg of furosemide and transferred to [facility]. Here for further treatment. Nephrology and cardiology consulted. 09/28: Tunneled dialysis catheter placed. Initiated on HD No acute events reported overnight, case discussed with nursing staff patient in no acute distress no complaints during my visit. Shortness of breath has resolved, no chest pain. He tells me when he looks in the mirror he thinks he looks terrible. He feels the dialysis wipes him out. He feels significantly better than before he came into the hospital, though. Awaiting outpatient dialysis placement. Vitals Vitals Vital Signs Date Time Temp Pulse Resp B/P (MAP) Pulse Ox O2 Delivery O2 Flow Rate FiO2 10/04/19 09:09 59 127/63 10/04/19 07:23 97.8 16 99 Nasal Cannula 2.0 97.8 Physical Exam Physical Exam General: Alert, Oriented X3, Cooperative, moderate distress HEENT: Atraumatic, PERRLA, EOMI, Mucous membr. moist/pink Lungs: Other (Bibasilar crackles) Heart: S1S2, RRR, no thrills, no rubs, no gallops, no murmurs Abdomen: Normal bowel sounds, Soft, No tenderness, No hepatosplenomegaly, No masses Rectal Exam: not examined Extremities: No clubbing, No cyanosis, No edema, Normal pulses, No tende rness/swelling Skin: No rashes, No breakdown, No significant lesion Neuro: Normal speech, Strength at 5/5 X4 ext, Normal tone, Sensation intact, Cranial nerves 3-12 NL, Reflexes 2+ Psych/Mental Status: Mental status NL, Mood NL General: Alert, Oriented X3, No acute distress Heart: Regular rate Abdomen: Normal bowel sounds, Soft, No tenderness Extremities: No cyanosis Skin: No rashes, No breakdown, No significant lesion Comment Review of Relevant I have reviewed the following items salome (where applicable) has been applied. Medications Current Medications Potassium Chloride (Klor-Con) 40 meq 1X ONCE PO Last administered on 09/25/19at 21:00; Start 09/25/19 at 20:15; Stop 09/25/19 at 20:16; Status DC Ondansetron HCl (Zofran) 4 mg PRN Q4HRS PRN IV NAUSEA/VOMITING; Start 09/25/19 at 21:15 Acetaminophen (Tylenol) 650 mg PRN Q4HRS PRN PO TEMP OVER 100.4F OR MILD PAIN Last administered on 09/26/19at 23:13; Start 09/25/19 at 21:15 Docusate Sodium (Colace) 100 mg PRN BID PRN PO HARD STOOLS; Start 09/25/19 at 21:15 Loperamide HCl (Imodium) 2 mg TID PO Last administered on 10/04/19 09:09; Start 09/25/19 at 21:45 Potassium Chloride (Klor-Con) 20 meq BIDWMEALS PO Last administered on 10/03/19 08:30; Start 09/26/19 at 08:00; Stop 10/03/19 at 12:49; Status DC Sodium Bicarbonate (Sodium Bicarbonate) 1,300 mg TIDWMEALS PO Last administered on 09/28/19 11:32; Start 09/26/19 at 08:00; Stop 09/28/19 at 11:52; Status DC Tamsulosin HCl (Flomax) 0.4 mg DAILY PO Last administered on 10/04/19 09:08; Start 09/26/19 at 09:00 Tramadol HCl (Ultram) 50 mg PRN Q8HRS PRN PO MODERATE PAIN, SEVERE PAIN Last administered on 10/01/19 08:21; Start 09/25/19 at 21:30 Calcium Carbonate/ Glycine (Oscal) 500 mg TIDWMEALS PO Last administered on 10/04/19 09:09; Start 09/26/19 at 08:00 Magnesium Oxide (Magnesium Oxide) 400 mg TID PO Last administered on 10/03/19 08:29; Start 09/26/19 at 09:00; Stop 10/03/19 at 12:49; Status DC Psyllium Hydrophilic Mucilloid (Metamucil Fiber Packet) 1 pkt QHS PO Last administered on 10/03/19 20:54; Start 09/25/19 at 21:30 Furosemide (Lasix) 40 mg BID92 IVP Last administered on 09/28/19 08:36; Start 09/26/19 at 09:00; Stop 09/28/19 at 11:50; Status DC Heparin Sodium (Porcine) (Heparin Sodium) 5,000 unit Q8HRS SQ Last administered on 10/04/19 06:22; Start 09/25/19 at 22:00 Mirtazapine (Remeron) 7.5 mg QHS PO Last administered on 10/03/19 20:53; Start 09/26/19 at 21:00 Amlodipine Besylate (Norvasc) 5 mg DAILY PO Last administered on 5/25/20at 09:09; Start 09/26/19 at 11:30 Furosemide (Lasix) 40 mg BID PO Last administered on 10/03/19at 08:29; Start 09/29/19 at 09:00; Stop 10/03/19 at 12:49; Status DC Potassium Chloride (Klor-Con) 20 meq 1X ONCE PO ; Start 09/29/19 at 12:00; Stop 09/29/19 at 12:01; Status DC Lidocaine/ Epinephrine (LIDOCAINE 1%-EPI 1:100,000 Multi-Dose) 20 ml STK-MED ONCE .ROUTE ; Start 09/29/19 at 13:21; Stop 09/29/19 at 13:21; Status DC Midazolam HCl (Versed) 2 mg STK-MED ONCE .ROUTE ; Start 09/29/19 at 13:34; Stop 09/29/19 at 13:35; Status DC Fentanyl Citrate (Fentanyl 2ml Vial) 100 mcg STK-MED ONCE .ROUTE ; Start 09/29/19 at 13:35; Stop 09/29/19 at 13:35; Status DC Cefazolin Sodium (Ancef) 1 gm STK-MED ONCE IVP ; Start 09/29/19 at 13:39; Stop 09/29/19 at 13:40; Status DC Midazolam HCl (Versed) 1 mg 1X ONCE IV Last administered on 09/29/19at 14:18; Start 09/29/19 at 14:15; Stop 09/29/19 at 14:33; Status DC Fentanyl Citrate (Fentanyl 2ml Vial) 50 mcg 1X ONCE IV Last administered on 09/29/19at 14:18; Start 09/29/19 at 14:15; Stop 09/29/19 at 14:33; Status DC Cefazolin Sodium (Ancef) 1 gm 1X ONCE IVP Last administered on 09/29/19at 14:17; Start 09/29/19 at 14:15; Stop 09/29/19 at 14:33; Status DC Lidocaine HCl (Lidocaine 1% 20ml Vial) 12 ml 1X ONCE INJ ; Start 09/29/19 at 14:15; Stop 09/29/19 at 14:20; Status DC Lidocaine/ Epinephrine (LIDOCAINE 1%-EPI 1:100,000 Multi-Dose) 12 ml 1X ONCE I [place] Last administered on 09/29/19at 14:02; Start 09/29/19 at 14:30; Stop 09/29/19 at 14:33; Status DC Sodium Chloride 1,000 ml @ 1,000 mls/hr Q1H PRN IV hypotension; Start 09/29/19 at 14:45; Stop 09/29/19 at 20:44; Status DC Sodium Chloride 1,000 ml @ 400 mls/hr Q2H30M PRN IV PATENCY; Start 09/29/19 at 14:45; Stop 09/30/19 at 02:44; Status DC Info (PHARMACY MONITORING -- do not chart) 1 each PRN DAILY PRN MC SEE COMMENTS; Start 09/29/19 at 15:00; Status UNV Info (PHARMACY MONITORING -- do not chart) 1 each PRN DAILY PRN MC SEE COMMENTS; Start 09/29/19 at 15:00 Sodium Chloride 1,000 ml @ 1,000 mls/hr Q1H PRN IV hypotension; Start 09/30/19 at 09:27; Stop 09/30/19 at 15:26; Status DC Albumin Human 200 ml @ 200 mls/hr 1X PRN PRN IV Hypotension; Start 09/30/19 at 09:30; Stop 09/30/19 at 15:29; Status DC Acetaminophen (Tylenol) 500 mg 1X PRN PRN PO MILD PAIN / TEMP > 100.3'F; Start 09/30/19 at 09:30; Stop 09/30/19 at 19:00; Status DC Diphenhydramine HCl (Benadryl) 25 mg 1X PRN PRN IV ITCHING; Start 09/30/19 at 09:30; Stop 09/30/19 at 19:00; Status DC Diphenhydramine HCl (Benadryl) 25 mg 1X PRN PRN IV ITCHING; Start 09/30/19 at 09:30; Stop 09/30/19 at 19:00; Status DC Sodium Chloride (Normal Saline Flush) 10 ml 1X PRN PRN IV AP catheter pack; Start 09/30/19 at 09:30; Stop 09/30/19 at 19:00; Status DC Sodium Chloride (Normal Saline Flush) 10 ml 1X PRN PRN IV G[employer] catheter pack; Start 09/30/19 at 09:30; Stop 09/30/19 at 19:00; Status DC Sodium Chloride 1,000 ml @ 400 mls/hr Q2H30M PRN IV PATENCY; Start 09/30/19 at 09:27; Stop 09/30/19 at 21:26; Status DC Info (PHARMACY MONITORING -- do not chart) 1 each PRN DAILY PRN MC SEE COMMENTS; Start 09/30/19 at 09:30; Status Cancel Sodium Chloride 1,000 ml @ 1,000 mls/hr Q1H PRN IV hypotension; Start 10/02/19 at 07:30; Stop 10/02/19 at 13:29; Status DC Albumin Human 200 ml @ 200 mls/hr 1X PRN PRN IV Hypotension; Start 10/02/19 at 07:30; Stop 10/02/19 at 13:29; Status DC Sodium Chloride 1,000 ml @ 400 mls/hr Q2H30M PRN IV PATENCY; Start 10/02/19 at 07:30; Stop 10/02/19 at 19:29; Status DC Info (PHARMACY MONITORING -- do not chart) 1 each PRN DAILY PRN MC SEE COMMENTS; Start 10/02/19 at 09:30; Status UNV Info (PHARMACY MONITORING -- do not chart) 1 each PRN DAILY PRN MC SEE COMMENTS; Start 10/02/19 at 09:30; Status UNV Magnesium Oxide (Magnesium Oxide) 400 mg DAILY PO Last administered on 10/04/19at 09:08; Start 10/04/19 at 09:00 Active Scripts Active Calcium (Calcium Carbonate) 500 Mg Tab.chew 1 Tab PO TID 30 Days Sodium Bicarbonate 650 Mg Tablet 2 Tab PO TID 30 Days Potassium Chloride (Potassium Chloride) 20 Meq Tablet.er 20 Meq PO BID 30 Days Mag-Oxide (Magnesium Oxide) 200 Mg Tablet 1 Tab PO TID 30 Days Imodium A-D (Loperamide HCl) 2 Mg Capsule 2 Mg PO TID 30 Days Metamucil (Psyllium Husk) 0.52 Gm Capsule 1 Cap PO DAILY 30 Days Reported Tramadol Hcl 50 Mg Tablet 50 Mg PO PRN Q8HRS PRN Flomax (Tamsulosin Hcl) 0.4 Mg Cap.er.24h 1 Cap PO DAILY Vitals/I & O Vital Sign - Last 24 Hours 10/03/19 10/03/19 10/03/19 10/03/19 11:00 15:03 19:00 20:00 Temp 97.4 97.3 98.1 97.4 97.3 98.1 Pulse 74 77 74 Resp 16 18 18 B/P (MAP) 116/70 (85) 123/62 (82) 114/65 (81) Pulse Ox 98 98 97 O2 Delivery Nasal Cannula Nasal Cannula Nasal Cannula O2 Flow Rate 2.0 2.0 2.0 10/03/19 10/04/19 10/04/19 10/04/19 23:00 03:00 07:23 09:09 Temp 98.0 97.6 97.8 98.0 97.6 97.8 Pulse 63 50 59 59 Resp 16 16 16 B/P (MAP) 111/60 (77) 115/58 (77) 127/63 (84) 127/63 Pulse Ox 95 99 99 O2 Delivery Nasal Cannula O2 Flow Rate 2.0 Intake and Output 10/03/19 10/03/19 10/04/19 15:00 23:00 07:00 Intake Total 280 ml 300 ml Output Total 500 ml 910 ml Balance -220 ml -610 ml Nutrition Consultation Dietary Evaluation: Recommendations by RD: Dietary education by RD, Increase Calorie Intake, Protein supplementation Comments: REC continue renal diet renal oral supplements - Nepro bid for HD Expected Outcomes/Goals: to meet >75% est nutr needs- goal ongoing Malnutrition Findings: Food and Nutrition Intake (Mod: <75% est energy req 7days Weight Status: Appropriate SHAKA BAL MD October 04, 2019 10:36
[2019-10-04 11:41] VITALS: BP 137/61
--- NOTE | 2019-10-04 13:13 | PDOC ---
SUBJECTIVE ROS Follow-up for ESRD now on hemodialysis Patient claims he is feeling much better today. He is eating a good lunch. Waiting on outpatient dialysis arrangements to be made prior to discharge CVS: no Orthopnea, no CP RESP: no SOB, no BERUMEN GI: no Nausea, no Vomiting : no Dysuria, no Urgency OBJECTIVE Vital Signs Vital Signs Date Time Temp Pulse Resp B/P (MAP) Pulse Ox O2 Delivery O2 Flow Rate FiO2 10/04/19 11:41 98.6 59 16 137/61 (86) 99 Nasal Cannula 2.0 98.6 I & 0 Intake and Output 10/04/19 07:00 Intake Total 580 ml Output Total 1410 ml Balance -830 ml Intake Oral 580 ml Output Urine Total 460 ml Stool Total 650 ml Other 300 ml # Voids 2 PHYSICAL EXAM Physical Exam GEN: Awake, Oriented x 2, In no distress EYES: Vision Unchanged, Conjunctiva Normal EN: No EN Drainage, Mucous Membranes moist NECK: no JVD, min JVP, Supple, no Thyromegaly CVS: S1S2, Soft Murmur, No Gallop, No Rub,no Edema RESP: no Rales, no Rhonchi,no Acc. Muscle Use GI: BS + ve, NO Bruit, Non Tender, Non Distended : no CVA tenderness, no Suprapubic Tenderness DIAGNOSIS/ASSESSMENT Assessment & Plan ESRD: Current fluid and E-lyte (no labs today ) status does not necessitate emergent need for dialysis. Will re-evaluate for dialysis in the am and continue on TTSAT schedule. ANEMIA; no recent hemoglobin in our system. This will be checked with morning labs HTN: Current BP meds as reviewed. See orders for changes. BONE & MINERAL: Follow phosphorus levels and alter binder regimen as needed per dietary intake Lowish calcium: Anticipate this to improve with dialysis and correction of magnesium Discussed Plan of Care with pt at bedside COMMENT/RELEVANT DATA Meds Current Medications Medications (Trade) Dose Ordered Sig/Richard Start Time Stop Time Status Last Admin Dose Admin Acetaminophen (Tylenol) 500 mg 1X PRN PRN 09/30/19 09:30 09/30/19 19:00 DC Albumin Human 200 ml @ 200 mls/hr 1X PRN PRN 10/02/19 07:30 10/02/19 13:29 DC Amlodipine Besylate (Norvasc) 5 mg DAILY 09/26/19 11:30 10/04/19 09:09 5 MG Calcium Carbonate/ Glycine (Oscal) 500 mg TIDWMEALS 09/26/19 08:00 10/04/19 09:09 500 MG Cefazolin Sodium (Ancef) 1 gm 1X ONCE 09/29/19 14:15 09/29/19 14:33 DC 09/29/19 14:17 1 GM Diphenhydramine HCl (Benadryl) 25 mg 1X PRN PRN 09/30/19 09:30 09/30/19 19:00 DC Docusate Sodium (Colace) 100 mg PRN BID PRN 09/25/19 21:15 Fentanyl Citrate (Fentanyl 2ml Vial) 50 mcg 1X ONCE 09/29/19 14:15 09/29/19 14:33 DC 09/29/19 14:18 50 MCG Furosemide (Lasix) 40 mg BID 09/29/19 09:00 10/03/19 12:49 DC 10/03/19 08:29 40 MG Heparin Sodium (Porcine) (Heparin Sodium) 5,000 unit Q8HRS 09/25/19 22:00 10/04/19 06:22 5,000 UNIT Info (PHARMACY MONITORING -- do not chart) 1 each PRN DAILY PRN 10/02/19 09:30 UNV Lidocaine HCl (Lidocaine 1% 20ml Vial) 12 ml 1X ONCE 09/29/19 14:15 09/29/19 14:20 DC Lidocaine/ Epinephrine (LIDOCAINE 1%-EPI 1:100,000 Multi-Dose) 12 ml 1X ONCE 09/29/19 14:30 09/29/19 14:33 DC 09/29/19 14:02 12 ML Loperamide HCl (Imodium) 2 mg TID 09/25/19 21:45 10/04/19 09:09 2 MG Magnesium Oxide (Magnesium Oxide) 400 mg DAILY 10/04/19 09:00 10/04/19 09:08 400 MG Midazolam HCl (Versed) 1 mg 1X ONCE 09/29/19 14:15 09/29/19 14:33 DC 09/29/19 14:18 1 MG Mirtazapine (Remeron) 7.5 mg QHS 09/26/19 21:00 10/03/19 20:53 7.5 MG Ondansetron HCl (Zofran) 4 mg PRN Q4HRS PRN 09/25/19 21:15 Potassium Chloride (Klor-Con) 20 meq 1X ONCE 09/29/19 12:00 09/29/19 12:01 DC Psyllium Hydrophilic Mucilloid (Metamucil Fiber Packet) 1 pkt QHS 09/25/19 21:30 10/03/19 20:54 1 PKT Sodium Bicarbonate (Sodium Bicarbonate) 1,300 mg TIDWMEALS 09/26/19 08:00 09/28/19 11:52 DC 09/28/19 11:32 1,300 MG Sodium Chloride 1,000 ml @ 400 mls/hr Q2H30M PRN 10/02/19 07:30 10/02/19 19:29 DC Sodium Chloride (Normal Saline Flush) 10 ml 1X PRN PRN 09/30/19 09:30 09/30/19 19:00 DC Tamsulosin HCl (Flomax) 0.4 mg DAILY 09/26/19 09:00 10/04/19 09:08 0.4 MG Tramadol HCl (Ultram) 50 mg PRN Q8HRS PRN 09/25/19 21:30 10/01/19 08:21 50 MG Results All relevant outside records, renal labs, imaging studies, telemetry/EKG's were reviewed. ENID SAM MD October 04, 2019 13:13
[2019-10-04] MEDS ORDERED: MAGNESIUM SULFATE 2GM 50 ML IV PRN (13:15)
[2019-10-04 15:00] VITALS: BP 141/66
[2019-10-04 19:28] VITALS: BP 118/61
[2019-10-04] MEDS: PSYLLIUM HUSK (SUGAR FREE) 1 PKT PACKET PO SCH (19:37)
[2019-10-04] MEDS: MIRTAZAPINE 7.5 MG TABLET. PO SCH (20:08)
[2019-10-04 23:05] VITALS: BP 130/67
--- NOTE | 2019-10-05 00:45 | NUR ---
Notified Dr. Fan of patient heart rate dropping to mid-upper 30's at times while patient is sleeping. No new orders given at this time. Continue plan of care. Will continue to monitor patient.
[2019-10-05 03:59] VITALS: BP 117/69
[2019-10-05 05:42] LABS: ALBUMIN 2.7 g/dL (3.4-5.0); CALCIUM 8.1 mg/dL (8.5-10.1); CREATININE 4.2 mg/dL (0.7-1.3); GFR 13.7; MAGNESIUM 2.2 mg/dL (1.8-2.4); PHOSPHORUS 5.2 mg/dL (2.6-4.7); POTASSIUM 4.1 mmol/L (3.5-5.1)
[2019-10-05] MEDS: HEPARIN for SUB-Q USE 5,000 UNIT/ML VIAL. SQ SCH ×3 (06:29→20:34)
[2019-10-05 07:08] VITALS: BP 108/61
[2019-10-05] MEDS: CALCIUM CARBONATE 500 MG TABLET PO SCH ×3 (08:00→17:52)
[2019-10-05] MEDS: TAMSULOSIN 0.4 MG CAP.ER.24H. PO SCH (09:00)
[2019-10-05] MEDS: LOPERAMIDE 2 MG CAPSULE PO SCH ×3 (09:00→20:30)
[2019-10-05] MEDS: MAGNESIUM OXIDE 400 MG TABLET PO SCH (09:00)
[2019-10-05] MEDS: amLODIPine BESYLATE 5 MG TABLET PO SCH (09:00)
[2019-10-05] MEDS ORDERED: IV NORMAL SALINE 1000ML BAG 1,000 ML IV PRN ×2 (09:09)
[2019-10-05] MEDS ORDERED: diphenhydrAMINE 50 MG/ML VIAL IV PRN ×2 (09:15)
[2019-10-05] MEDS ORDERED: 0.9 % SODIUM CHLORIDE 10 ML DISP.SYRIN. IV PRN ×2 (09:15)
[2019-10-05] MEDS ORDERED: DIALYSIS PATIENT. MC PRN (09:15)
[2019-10-05] MEDS ORDERED: ACETAMINOPHEN 500 MG TABLET PO PRN (09:15)
[2019-10-05] MEDS ORDERED: ALBUMIN HUMAN 25% 200 ML IV PRN (09:15)
--- NOTE | 2019-10-05 09:20 | NUR ---
SS following up with discharge planning. SS received notification from [facility] stating that [facility] in [place] was at capacity, but pt was given a scheduled chair time at [facility], [address] [place] [address], [phone], ; fax [phone], Friday, Friday, and Friday at 1415. Pt is scheduled for first chair time on 10/06/2019 and will need to arrive at clinic at 1345 for first visit. Pt's RN notified.
--- NOTE | 2019-10-05 09:49 | PDOC ---
PROGRESS NOTES Chief Complaint Chief Complaint A/P: Acute on chronic diastolic (congestive) heart failure - will continue dialysis. Off BB for, statin, ASA. Cr. precludes MEDINA/ARB therapy. SUHAS on Chronic renal failure, stage 4 (severe) - likely vasomotor nephropathy, cardiorenal. Cont dialysis, outpatient now ESRD Bilateral pleural effusions - Will diurese, likely CHF related. Acute hypoxic respiratory failure - likely related to above. Will wean O2 as tolerated. 6 minute walk prior to d/c Colorectal cancer in remission - s/p diverting ileostomy. Stoma care ordered Elevated troponin - likely demand ischemia given acute CHF exacerbation Loss of appetite - will start on remeron Insomnia - as above Plan: COVID testing negative Dialysis as per is consultant CM to help with outpatient dialysis set up FEN - Renal diet PPX - heparin FULL CODE Dispo - inpatient for CHF exacerbation 2 midnights. History of Present Illness History of Present Illness Mr Puente is an 79yo M w/ PMHx Rectal Cancer s/p diverting ileostomy, diastolic CHF, CKD, ETOH use disorder in remission who presents to the emergency department at [facility] on 09/25/2019 with a several day history of progressive lightheadedness and feeling weak. He states the last time he felt like this he was in renal failure. Patient also states that he has been having shortness of breath dyspnea on exertion he is not making much urine. CXR revealed bilateral small effusions and bibasilar opacities adjacent to effusions left greater than right. Labs significant for BNP greater than 35,000, WBC 9.2, Hb 11.6, platelets 313, albumin 3.3. NA 140, K3.4, BUN 43, CR 3.5, glucose 123, troponin 0 0.128, repeat troponin 0 0.099. EKG: Normal sinus rhythm rate of [address]-T changes He was given 80 mg of furosemide and transferred to [facility]. Here for further treatment. Nephrology and cardiology consulted. 09/28: Tunneled dialysis catheter placed. Initiated on HD 10/03: No acute events reported overnight, case discussed with nursing staff patient in no acute distress no complaints during my visit. Shortness of breath has resolved, no chest pain. He tells me when he looks in the mirror he thinks he looks terrible. He feels the dialysis wipes him out. He feels significantly better than before he came into the hospital, though. Awaiting outpatient dialysis placement. Nursing noted some overnight bradycardia into the 30s. Afebrile overnight. Still on NCO2 2L. Seen on dialysis. He has chair available now [place]. He is still feeling weak. Otherwise stable. Plan: PT, OT 6 minute walk Vitals Vitals Vital Signs Date Time Temp Pulse Resp B/P (MAP) Pulse Ox O2 Delivery O2 Flow Rate FiO2 10/05/19 09:00 65 108/61 10/05/19 07:08 97.7 98 Nasal Cannula 2.0 97.7 10/05/19 03:59 16 Physical Exam Physical Exam General: Alert, Oriented X3, Cooperative, moderate distress HEENT: Atraumatic, PERRLA, EOMI, Mucous membr. moist/pink Lungs: Other (Bibasilar crackles) Heart: S1S2, RRR, no thrills, no rubs, no gallops, no murmurs Abdomen: Normal bowel sounds, Soft, No tenderness, No hepatosplenomegaly, No masses Rectal Exam: not examined Extremities: No clubbing, No cyanosis, No edema, Normal pulses, No tenderness/swelling Skin: No rashes, No breakdown, No significant lesion Neuro: Normal speech, Strength at 5/5 X4 ext, Normal tone, Sensation intact, Cranial nerves 3-12 NL, Reflexes 2+ Psych/Mental Status: Mental status NL, Mood NL General: Alert, Oriented X3, No acute distress Heart: Regular rate Abdomen: Normal bowel sounds, Soft, No tenderness Extremities: No cyanosis Skin: No rashes, No breakdown, No significant lesion Labs LABS Laboratory Tests Test 10/05/19 03:41 Hemoglobin 11.7 g/dL (13.0-17.5) Sodium Level 140 mmol/L (136-145) Potassium Level 4.1 mmol/L (3.5-5.1) Chloride Level 102 mmol/L (98-107) Carbon Dioxide Level 28 mmol/L (21-32) Anion Gap 10 (6-14) Blood Urea Nitrogen 53 mg/dL (8-26) Creatinine 4.2 mg/dL (0.7-1.3) Estimated GFR (Cockcroft-Gault) 13.7 Glucose Level 85 mg/dL (70-99) Calcium Level 8.1 mg/dL (8.5-10.1) Phosphorus Level 5.2 mg/dL (2.6-4.7) Magnesium Level 2.2 mg/dL (1.8-2.4) Albumin 2.7 g/dL (3.4-5.0) Comment Review of Relevant I have reviewed the following items salome (where applicable) has been applied. Labs Laboratory Tests Test 10/05/19 03:41 Hemoglobin 11.7 g/dL (13.0-17.5) Sodium Level 140 mmol/L (136-145) Potassium Level 4.1 mmol/L (3.5-5.1) Chloride Level 102 mmol/L (98-107) Carbon Dioxide Level 28 mmol/L (21-32) Anion Gap 10 (6-14) Blood Urea Nitrogen 53 mg/dL (8-26) Creatinine 4.2 mg/dL (0.7-1.3) Estimated GFR (Cockcroft-Gault) 13.7 Glucose Level 85 mg/dL (70-99) Calcium Level 8.1 mg/dL (8.5-10.1) Phosphorus Level 5.2 mg/dL (2.6-4.7) Magnesium Level 2.2 mg/dL (1.8-2.4) Albumin 2.7 g/dL (3.4-5.0) Laboratory Tests Test 10/05/19 03:41 Hemoglobin 11.7 g/dL (13.0-17.5) Sodium Level 140 mmol/L (136-145) Potassium Level 4.1 mmol/L (3.5-5.1) Chloride Level 102 mmol/L (98-107) Carbon Dioxide Level 28 mmol/L (21-32) Anion Gap 10 (6-14) Blood Urea Nitrogen 53 mg/dL (8-26) Creatinine 4.2 mg/dL (0.7-1.3) Estimated GFR (Cockcroft-Gault) 13.7 Glucose Level 85 mg/dL (70-99) Calcium Level 8.1 mg/dL (8.5-10.1) Phosphorus Level 5.2 mg/dL (2.6-4.7) Magnesium Level 2.2 mg/dL (1.8-2.4) Albumin 2.7 g/dL (3.4-5.0) Medications Current Medications Potassium Chloride (Klor-Con) 40 meq 1X ONCE PO Last administered on 09/25/19 21:00; Start 09/25/19 at 20:15; Stop 09/25/19 at 20:16; Status DC Ondansetron HCl (Zofran) 4 mg PRN Q4HRS PRN IV NAUSEA/VOMITING; Start 09/25/19 at 21:15 Acetaminophen (Tylenol) 650 mg PRN Q4HRS PRN PO TEMP OVER 100.4F OR MILD PAIN Last administered on 09/26/19at 23:13; Start 09/25/19 at 21:15 Docusate Sodium (Colace) 100 mg PRN BID PRN PO HARD STOOLS; Start 09/25/19 at 21:15 Loperamide HCl (Imodium) 2 mg TID PO Last administered on 10/04/19 09:09; Start 09/25/19 at 21:45 Potassium Chloride (Klor-Con) 20 meq BIDWMEALS PO Last administered on 10/03/19 08:30; Start 09/26/19 at 08:00; Stop 10/03/19 at 12:49; Status DC Sodium Bicarbonate (Sodium Bicarbonate) 1,300 mg TIDWMEALS PO Last administered on 09/28/19 11:32; Start 09/26/19 at 08:00; Stop 09/28/19 at 11:52; Status DC Tamsulosin HCl (Flomax) 0.4 mg DAILY PO Last administered on 10/04/19 09:08; Start 09/26/19 at 09:00 Tramadol HCl (Ultram) 50 mg PRN Q8HRS PRN PO MODERATE PAIN, SEVERE PAIN Last administered on 10/01/19at 08:21; Start 09/25/19 at 21:30 Calcium Carbonate/ Glycine (Oscal) 500 mg TIDWMEALS PO Last administered on 10/04/19 18:32; Start 09/26/19 at 08:00 Magnesium Oxide (Magnesium Oxide) 400 mg TID PO Last administered on 10/03/19 08:29; Start 09/26/19 at 09:00; Stop 10/03/19 at 12:49; Status DC Psyllium Hydrophilic Mucilloid (Metamucil Fiber Packet) 1 pkt QHS PO Last administered on 10/03/19at 20:54; Start 09/25/19 at 21:30 Furosemide (Lasix) 40 mg BID92 IVP Last administered on 09/28/19 08:36; Start 09/26/19 at 09:00; Stop 09/28/19 at 11:50; Status DC Heparin Sodium (Porcine) (Heparin Sodium) 5,000 unit Q8HRS SQ Last administered on 10/05/19at 06:29; Start 09/25/19 at 22:00 Mirtazapine (Remeron) 7.5 mg QHS PO Last administered on 10/04/19at 20:08; Start 09/26/19 at 21:00 Amlodipine Besylate (Norvasc) 5 mg DAILY PO Last administered on 10/04/19 09:09; Start 09/26/19 at 11:30 Furosemide (Lasix) 40 mg BID PO Last administered on 10/03/19at 08:29; Start 09/29/19 at 09:00; Stop 10/03/19 at 12:49; Status DC Potassium Chloride (Klor-Con) 20 meq 1X ONCE PO ; Start 09/29/19 at 12:00; Stop 09/29/19 at 12:01; Status DC Lidocaine/ Epinephrine (LIDOCAINE 1%-EPI 1:100,000 Multi-Dose) 20 ml STK-MED ONCE .ROUTE ; Start 09/29/19 at 13:21; Stop 09/29/19 at 13:21; Status DC Midazolam HCl (Versed) 2 mg STK-MED ONCE .ROUTE ; Start 09/29/19 at 13:34; Stop 09/29/19 at 13:35; Status DC Fentanyl Citrate (Fentanyl 2ml Vial) 100 mcg STK-MED ONCE .ROUTE ; Start 09/29/19 at 13:35; Stop 09/29/19 at 13:35; Status DC Cefazolin Sodium (Ancef) 1 gm STK-MED ONCE IVP ; Start 09/29/19 at 13:39; Stop 09/29/19 at 13:40; Status DC Midazolam HCl (Versed) 1 mg 1X ONCE IV Last administered on 09/29/19at 14:18; Start 09/29/19 at 14:15; Stop 09/29/19 at 14:33; Status DC Fentanyl Citrate (Fentanyl 2ml Vial) 50 mcg 1X ONCE IV Last administered on 09/29/19at 14:18; Start 09/29/19 at 14:15; Stop 09/29/19 at 14:33; Status DC Cefazolin Sodium (Ancef) 1 gm 1X ONCE IVP Last administered on 09/29/19at 14:17; Start 09/29/19 at 14:15; Stop 09/29/19 at 14:33; Status DC Lidocaine HCl (Lidocaine 1% 20ml Vial) 12 ml 1X ONCE INJ ; Start 09/29/19 at 14:15; Stop 09/29/19 at 14:20; Status DC Lidocaine/ Epinephrine (LIDOCAINE 1%-EPI 1:100,000 Multi-Dose) 12 ml 1X ONCE INJ Last administered on 09/29/19at 14:02; Start 09/29/19 at 14:30; Stop 09/29/19 at 14:33; Status DC Sodium Chloride 1,000 ml @ 1,000 mls/hr Q1H PRN IV hypotension; Start 09/29/19 at 14:45; Stop 09/29/19 at 20:44; Status DC Sodium Chloride 1,000 ml @ 400 mls/hr Q2H30M PRN IV PATENCY; Start 09/29/19 at 14:45; Stop 09/30/19 at 02:44; Status DC Info (PHARMACY MONITORING -- do not chart) 1 each PRN DAILY PRN MC SEE COMMENTS; Start 09/29/19 at 15:00; Status UNV Info (PHARMACY MONITORING -- do not chart) 1 each PRN DAILY PRN MC SEE COMMENTS; Start 09/29/19 at 15:00 Sodium Chloride 1,000 ml @ 1,000 mls/hr Q1H PRN IV hypotension; Start 09/30/19 at 09:27; Stop 09/30/19 at 15:26; Status DC Albumin Human 200 ml @ 200 mls/hr 1X PRN PRN IV Hypotension; Start 09/30/19 at 09:30; Stop 09/30/19 at 15:29; Status DC Acetaminophen (Tylenol) 500 mg 1X PRN PRN PO MILD PAIN / TEMP > 100.3'F; Start 09/30/19 at 09:30; Stop 09/30/19 at 19:00; Status DC Diphenhydramine HCl (Benadryl) 25 mg 1X PRN PRN IV ITCHING; Start 09/30/19 at 09:30; Stop 09/30/19 at 19:00; Status DC Diphenhydramine HCl (Benadryl) 25 mg 1X PRN PRN IV ITCHING; Start 09/30/19 at 09:30; Stop 09/30/19 at 19:00; Status DC Sodium Chloride (Normal Saline Flush) 10 ml 1X PRN PRN IV AP catheter pack; Start 09/30/19 at 09:30; Stop 09/30/19 at 19:00; Status DC Sodium Chloride (Normal Saline Flush) 10 ml 1X PRN PRN IV MAPPING EDITOR catheter pack; Start 09/30/19 at 09:30; Stop 09/30/19 at 19:00; Status DC Sodium Chloride 1,000 ml @ 400 mls/hr Q2H30M PRN IV PATENCY; Start 09/30/19 at 09:27; Stop 09/30/19 at 21:26; Status DC Info (PHARMACY MONITORING -- do not chart) 1 each PRN DAILY PRN MC SEE COMMENTS; Start 09/30/19 at 09:30; Status Cancel Sodium Chloride 1,000 ml @ 1,000 mls/hr Q1H PRN IV hypotension; Start 10/02/19 at 07:30; Stop 10/02/19 at 13:29; Status DC Albumin Human 200 ml @ 200 mls/hr 1X PRN PRN IV Hypotension; Start 10/02/19 at 07:30; Stop 10/02/19 at 13:29; Status DC Sodium Chloride 1,000 ml @ 400 mls/hr Q2H30M PRN IV PATENCY; Start 10/02/19 at 07:30; Stop 10/02/19 at 19:29; Status DC Info (PHARMACY MONITORING -- do not chart) 1 each PRN DAILY PRN MC SEE COMMENTS; Start 10/02/19 at 09:30; Status UNV Info (PHARMACY MONITORING -- do not chart) 1 each PRN DAILY PRN MC SEE COMMENTS; Start 10/02/19 at 09:30; Status UNV Magnesium Oxide (Magnesium Oxide) 400 mg DAILY PO Last administered on 10/04/19at 09:08; Start 10/04/19 at 09:00 Magnesium Sulfate 50 ml @ 25 mls/hr PRN DAILY PRN IV for Mag < 1.7 on am labs; Start 10/04/19 at 13:15 Sodium Chloride 1,000 ml @ 1,000 mls/hr Q1H PRN IV hypotension; Start 10/05/19 at 09:09; Stop 10/05/19 at 15:08 Albumin Human 200 ml @ 200 mls/hr 1X PRN PRN IV Hypotension; Start 10/05/19 at 09:15; Stop 10/05/19 at 15:14 Acetaminophen (Tylenol) 500 mg 1X PRN PRN PO MILD PAIN / TEMP > 100.3'F; Start 10/05/19 at 09:15; Stop 10/06/19 at 09:14 Diphenhydramine HCl (Benadryl) 25 mg 1X PRN PRN IV ITCHING; Start 10/05/19 at 09:15; Stop 10/06/19 at 09:14 Diphenhydramine HCl (Benadryl) 25 mg 1X PRN PRN IV ITCHING; Start 10/05/19 at 09:15; Stop 10/06/19 at 09:14 Sodium Chloride (Normal Saline Flush) 10 ml 1X PRN PRN IV AP catheter pack; Start 10/05/19 at 09:15; Stop 10/06/19 at 09:14 Sodium Chloride (Normal Saline Flush) 10 ml 1X PRN PRN IV MAPPING EDITOR catheter pack; Start 10/05/19 at 09:15; Stop 10/06/19 at 09:14 Sodium Chloride 1,000 ml @ 400 mls/hr Q2H30M PRN IV PATENCY; Start 10/05/19 at 09:09; Stop 10/05/19 at 21:08 Info (PHARMACY MONITORING -- do not chart) 1 each PRN DAILY PRN MC SEE COMMENTS; Start 10/05/19 at 09:15; Status UNV Active Scripts Active Calcium (Calcium Carbonate) 500 Mg Tab.chew 1 Tab PO TID 30 Days Sodium Bicarbonate 650 Mg Tablet 2 Tab PO TID 30 Days Potassium Chloride (Potassium Chloride) 20 Meq Tablet.er 20 Meq PO BID 30 Days Mag-Oxide (Magnesium Oxide) 200 Mg Tablet 1 Tab PO TID 30 Days Imodium A-D (Loperamide HCl) 2 Mg Capsule 2 Mg PO TID 30 Days Metamucil (Psyllium Husk) 0.52 Gm Capsule 1 Cap PO DAILY 30 Days Reported Tramadol Hcl 50 Mg Tablet 50 Mg PO PRN Q8HRS PRN Flomax (Tamsulosin Hcl) 0.4 Mg Cap.er.24h 1 Cap PO DAILY Vitals/I & O Vital Sign - Last 24 Hours 10/04/19 10/04/19 10/04/19 10/04/19 11:41 15:00 19:28 20:00 Temp 98.6 97.7 97.7 98.6 97.7 97.7 Pulse 59 65 59 Resp 16 18 16 B/P (MAP) 137/61 (86) 141/66 (91) 118/61 (80) Pulse Ox 99 97 98 O2 Delivery Nasal Cannula Nasal Cannula Nasal Cannula Nasal Cannula O2 Flow Rate 2.0 2.0 2.0 2.0 10/04/19 10/05/19 10/05/19 10/05/19 23:05 03:59 07:08 09:00 Temp 98.2 97.4 97.7 98.2 97.4 97.7 Pulse 65 62 65 65 Resp 16 16 B/P (MAP) 130/67 (88) 117/69 (85) 108/61 (77) 108/61 Pulse Ox 98 95 98 O2 Delivery Nasal Cannula Nasal Cannula Nasal Cannula O2 Flow Rate 2.0 2.0 2.0 Intake and Output 10/04/19 10/04/19 10/05/19 15:00 23:00 07:00 Intake Total 500 ml 440 ml 200 ml Output Total 400 ml Balance 500 ml 440 ml -200 ml Nutrition Consultation Dietary Evaluation: Recommendations by RD: Dietary education by RD, Increase Calorie Intake, Protein supplementation Comments: REC continue renal diet renal oral supplements - [place] bid for HD Expected Outcomes/Goals: to meet >75% est nutr needs- goal ongoing Malnutrition Findings: Food and Nutrition Intake (Mod: <75% est energy req 7days Weight Status: Appropriate SHAKA BAL MD October 05, 2019 09:49
--- NOTE | 2019-10-05 11:08 | PDOC ---
Renal-Progress Notes Subjective Notes Notes NO NEW COMPLAINTS History of Present Illness Hx of present illness STABLE Vitals Vitals Vital Signs Date Time Temp Pulse Resp B/P (MAP) Pulse Ox O2 Delivery O2 Flow Rate FiO2 10/05/19 09:00 65 108/61 10/05/19 07:08 97.7 98 Nasal Cannula 2.0 97.7 10/05/19 03:59 16 Weight Weight [ ] I.O. Intake and Output Intake and Output 10/05/19 07:00 Intake Total 1140 ml Output Total 400 ml Balance 740 ml Intake Oral 1140 ml Stool Total 400 ml # Voids 2 Labs Labs Laboratory Tests Test 10/05/19 03:41 Hemoglobin 11.7 g/dL (13.0-17.5) Sodium Level 140 mmol/L (136-145) Potassium Level 4.1 mmol/L (3.5-5.1) Chloride Level 102 mmol/L (98-107) Carbon Dioxide Level 28 mmol/L (21-32) Anion Gap 10 (6-14) Blood Urea Nitrogen 53 mg/dL (8-26) Creatinine 4.2 mg/dL (0.7-1.3) Estimated GFR (Cockcroft-Gault) 13.7 Glucose Level 85 mg/dL (70-99) Calcium Level 8.1 mg/dL (8.5-10.1) Phosphorus Level 5.2 mg/dL (2.6-4.7) Magnesium Level 2.2 mg/dL (1.8-2.4) Albumin 2.7 g/dL (3.4-5.0) Review of Systems Constitutional: yes: alert Ears/Nose/Throat: Yes: no symptom reported Eyes: Yes: no symptom reported Pulmonary: Yes no symptom reported Gastrointestional: Yes: constipation Genitourinary: Yes: no symptom reported Musculoskeletal: Yes: muscle stiffness Skin: Yes no symptom reported Psychiatric/Neurological: Yes: no symptom reported Physical Exam General Appearance: no apparent distress Skin: warm Respiratory: bilateral CTA Heart: S1S2 Abdomen: soft, bowel sounds present Genitourinary: bladder flat Extremities: pulses present Neurology: alert, oriented, follow commands Assessment Assessment IMP ESRD ANEMIA HTN PLAN HD TODAY UF TO DW OP HD SET UP AT [facility] TILL OPENING AVAILABLE AT [facility] GACRIA MD October 05, 2019 11:08
--- NOTE | 2019-10-05 11:40 | NUR ---
Spoke w/ pt's daughter, Cathryn. Gave her dialysis info, she requested the pt go to the [facility] location, if possible. LVM for Holly to attempt to change pt's chair location.
--- NOTE | 2019-10-05 13:00 | NUR ---
SS following up with discharge planning. SS received notification that pt's family wanted dialysis clinic in [place], [place]. SS contacted [facility] and was notified that there are no dialysis clinics in [place], [place]. They reported that the last clinic was shut down almost three years ago. SS contacted pt's daughter, Cathryn, , and discussed. Pt's daughter agreeable to go to [facility] dialysis. Information provided. SS will continue to follow for discharge planning.
[2019-10-05 15:00] VITALS: BP 107/55
--- NOTE | 2019-10-05 15:16 | PDOC ---
JANEE VO PROPERTY UTILIZATION MANAGER 10/05/19 1516: CARDIO Progress Notes Date and Time Date of Service 10/05/19 Time of Evaluation 1145 Subjective Subjective: No Chest Pain, No shortness of breath, No Palpitations Vitals Vitals Vital Signs Date Time Temp Pulse Resp B/P (MAP) Pulse Ox O2 Delivery O2 Flow Rate FiO2 10/05/19 09:00 65 108/61 10/05/19 08:00 Nasal Cannula 2.0 10/05/19 07:08 97.7 98 97.7 10/05/19 03:59 16 Weight Weight [ ] Input and Output Intake and Output Intake and Output 10/05/19 07:00 Intake Total 1140 ml Output Total 400 ml Balance 740 ml Intake Oral 1140 ml Stool Total 400 ml # Voids 2 Laboratory Labs Laboratory Tests Test 10/05/19 03:41 Hemoglobin 11.7 g/dL (13.0-17.5) Sodium Level 140 mmol/L (136-145) Potassium Level 4.1 mmol/L (3.5-5.1) Chloride Level 102 mmol/L (98-107) Carbon Dioxide Level 28 mmol/L (21-32) Anion Gap 10 (6-14) Blood Urea Nitrogen 53 mg/dL (8-26) Creatinine 4.2 mg/dL (0.7-1.3) Estimated GFR (Cockcroft-Gault) 13.7 Glucose Level 85 mg/dL (70-99) Calcium Level 8.1 mg/dL (8.5-10.1) Phosphorus Level 5.2 mg/dL (2.6-4.7) Magnesium Level 2.2 mg/dL (1.8-2.4) Albumin 2.7 g/dL (3.4-5.0) Review of Systems Constitutional: yes: alert Ears/Nose/Throat: Yes: no symptom reported Eyes: Yes: no symptom reported Pulmonary: Yes no symptom reported Gastrointestional: Yes: constipation Genitourinary: Yes: no symptom reported Musculoskeletal: Yes: muscle stiffness Skin: Yes no symptom reported Psychiatric/Neurological: Yes: no symptom reported Physical Exam HEENT: Neck Supple W Full Motion Chest: Symmetric LUNGS: Clear to Auscultation Heart: other (SR with intermittent accelerated idioventricular rhythm.) Abdomen: Soft N/T Extremities: No Edema Neurology: alert, oriented, follow commands Assessment Assessment 1. Acute on chronic diastolic CHF; appears compensated 2. Mild troponin elevation; peak 0.09. Most probably type II, demand ischemia. CP free. 3. Arrhythmia: continues to have same intermittent idioventricular and occasional bursts of NSVT. lowest rate in the mid 40s although upper 30's were noted overnight briefly while sleeping. no pauses and mean in the 60s. asymptomatic. 4. CKD, now ESRD on HD 5. Hypertension; controlled 6. Colon CA s/p colectomy with ileostomy Recommendations Avoid AV emelina blocking agents Outpatient event monitor has been arranged. Fluid off loading via HD Outpatient ischemic workup Allergy to ASA. Consider for [facility] referral Supportive care Okay to discharge from a CV standpoint Follow up in our [place] office with Dr. Jones as scheduled. LEONARDO JONES MD 10/05/19 1656: CARDIO Progress Notes Plan Plan Pt. seen and examined. Agree with above SCIENTIFIC EDITOR note. Discussed with patient and nursing staff. Outpt f/u in [place] and will plan for outpt MPI Dyspnea improved, likely due to renal failure. JANEE VO APRN October 05, 2019 15:16 LEONARDO JONES MD October 05, 2019 16:56
[2019-10-05 19:00] VITALS: BP 126/56
[2019-10-05] MEDS: MIRTAZAPINE 7.5 MG TABLET. PO SCH (20:30)
[2019-10-05] MEDS: PSYLLIUM HUSK (SUGAR FREE) 1 PKT PACKET PO SCH (20:30)
[2019-10-05 23:00] VITALS: BP 104/56
[2019-10-06 03:00] VITALS: BP 99/45
[2019-10-06 04:19] LABS: ALBUMIN 2.7 g/dL (3.4-5.0); CALCIUM 7.7 mg/dL (8.5-10.1); CREATININE 2.8 mg/dL (0.7-1.3); GFR 21.9; MAGNESIUM 1.9 mg/dL (1.8-2.4); PHOSPHORUS 4.3 mg/dL (2.6-4.7); POTASSIUM 4.2 mmol/L (3.5-5.1)
[2019-10-06] MEDS: HEPARIN for SUB-Q USE 5,000 UNIT/ML VIAL. SQ SCH ×2 (06:11→14:00)
[2019-10-06 07:35] VITALS: BP 111/63
--- NOTE | 2019-10-06 08:06 | PDOC ---
PROGRESS NOTES Chief Complaint Chief Complaint A/P: Acute on chronic diastolic (congestive) heart failure - will continue dialysis. Off BB for, statin, ASA. Cr. precludes MEDINA/ARB therapy. SUHAS on Chronic renal failure, stage 4 (severe) - likely vasomotor nephropathy, cardiorenal. Cont dialysis, outpatient now ESRD Bilateral pleural effusions - Will diurese, likely CHF related. Acute hypoxic respiratory failure - likely related to above. Will wean O2 as tolerated. 6 minute walk prior to d/c Colorectal cancer in remission - s/p diverting ileostomy. Stoma care ordered Elevated troponin - likely demand ischemia given acute CHF exacerbation Loss of appetite - will start on remeron Insomnia - as above Plan: COVID testing negative Dialysis as per specialty sales consultant CM to help with outpatient dialysis set up FEN - Renal diet PPX - heparin FULL CODE Dispo - inpatient for CHF exacerbation 2 midnights. History of Present Illness History of Present Illness Mr Puente is an 79yo M w/ PMHx Rectal Cancer s/p diverting ileostomy, diastolic CHF, CKD, ETOH use disorder in remission who presents to the emergency department at [facility] on 09/25/2019 with a several day history of progressive lightheadedness and feeling weak. He states the last time he felt like this he was in renal failure. Patient also states that he has been having shortness of breath dyspnea on exertion he is not making much urine. CXR revealed bilateral small effusions and bibasilar opacities adjacent to effusions left greater than right. Labs significant for BNP greater than 35,000, WBC 9.2, Hb 11.6, platelets 313, albumin 3.3. NA 140, K3.4, BUN 43, CR 3.5, glucose 123, troponin 0 0.128, repeat troponin 0 0.099. EKG: Normal sinus rhythm rate of [address]-T changes He was given 80 mg of furosemide and transferred to [facility]. Here for further treatment. Nephrology and cardiology consulted. 09/28: Tunneled dialysis catheter placed. Initiated on HD 09/29: Noted with mucus per rectum, this is normal in colostomy patients. 10/03: No acute events reported overnight, case discussed with nursing staff patient in no acute distress no complaints during my visit. Shortness of breath has resolved, no chest pain. He tells me when he looks in the mirror he thinks he looks terrible. He feels the dialysis wipes him out. He feels significantly better than before he came into the hospital, though. Awaiting outpatient dialysis placement. 10/04: Nursing noted some overnight bradycardia into the 30s. Afebrile overnight. Still on NCO2 2L. Seen on dialysis. He has chair available now [place]. He is still feeling weak. Otherwise stable. Cardiology recommends no AV emelina blocking agents given symptomatic bradycardia. No hypoxia on 6-minute walk. Labs stable. Dialysis arranged for 10/08/2019 at [facility] in [place]. BP better controlled with amlodipine. Home health ordered family notified of discharge today. Plan: D/c home with home health and outpatient dialysis Vitals Vitals Vital Signs Date Time Temp Pulse Resp B/P (MAP) Pulse Ox O2 Delivery O2 Flow Rate FiO2 10/06/19 07:35 97.4 59 18 111/63 (79) 97 Room Air 97.4 10/05/19 19:41 2.0 Physical Exam Physical Exam General: Alert, Oriented X3, Cooperative, moderate distress HEENT: Atraumatic, PERRLA, EOMI, Mucous membr. moist/pink Lungs: Other (Bibasilar crackles) Heart: S1S2, RRR, no thrills, no rubs, no gallops, no murmurs Abdomen: Normal bowel sounds, Soft, No tenderness, No hepatosplenomegaly, No masses Rectal Exam: not examined Extremities: No clubbing, No cyanosis, No edema, Normal pulses, No tenderness/swelling Skin: No rashes, No breakdown, No significant lesion Neuro: Normal speech, Strength at 5/5 X4 ext, Normal tone, Sensation intact, Cranial nerves 3-12 NL, Reflexes 2+ Psych/Mental Status: Mental status NL, Mood NL General: Alert, Oriented X3, No acute distress Heart: Regular rate Abdomen: Normal bowel sounds, Soft, No tenderness Extremities: No cyanosis Skin: No rashes, No breakdown, No significant lesion Labs LABS Laboratory Tests Test 10/06/19 03:14 Sodium Level 140 mmol/L (136-145) Potassium Level 4.2 mmol/L (3.5-5.1) Chloride Level 103 mmol/L (98-107) Carbon Dioxide Level 28 mmol/L (21-32) Anion Gap 9 (6-14) Blood Urea Nitrogen 25 mg/dL (8-26) Creatinine 2.8 mg/dL (0.7-1.3) Estimated GFR (Cockcroft-Gault) 21.9 Glucose Level 91 mg/dL (70-99) Calcium Level 7.7 mg/dL (8.5-10.1) Phosphorus Level 4.3 mg/dL (2.6-4.7) Magnesium Level 1.9 mg/dL (1.8-2.4) Albumin 2.7 g/dL (3.4-5.0) Comment Review of Relevant I have reviewed the following items salome (where applicable) has been applied. Labs Laboratory Tests Test 10/05/19 03:41 10/06/19 03:14 Hemoglobin 11.7 g/dL (13.0-17.5) Sodium Level 140 mmol/L (136-145) 140 mmol/L (136-145) Potassium Level 4.1 mmol/L (3.5-5.1) 4.2 mmol/L (3.5-5.1) Chloride Level 102 mmol/L (98-107) 103 mmol/L (98-107) Carbon Dioxide Level 28 mmol/L (21-32) 28 mmol/L (21-32) Anion Gap 10 (6-14) 9 (6-14) Blood Urea Nitrogen 53 mg/dL (8-26) 25 mg/dL (8-26) Creatinine 4.2 mg/dL (0.7-1.3) 2.8 mg/dL (0.7-1.3) Estimated GFR (Cockcroft-Gault) 13.7 21.9 Glucose Level 85 mg/dL (70-99) 91 mg/dL (70-99) Calcium Level 8.1 mg/dL (8.5-10.1) 7.7 mg/dL (8.5-10.1) Phosphorus Level 5.2 mg/dL (2.6-4.7) 4.3 mg/dL (2.6-4.7) Magnesium Level 2.2 mg/dL (1.8-2.4) 1.9 mg/dL (1.8-2.4) Albumin 2.7 g/dL (3.4-5.0) 2.7 g/dL (3.4-5.0) Laboratory Tests Test 10/06/19 03:14 Sodium Level 140 mmol/L (136-145) Potassium Level 4.2 mmol/L (3.5-5.1) Chloride Level 103 mmol/L (98-107) Carbon Dioxide Level 28 mmol/L (21-32) Anion Gap 9 (6-14) Blood Urea Nitrogen 25 mg/dL (8-26) Creatinine 2.8 mg/dL (0.7-1.3) Estimated GFR (Cockcroft-Gault) 21.9 Glucose Level 91 mg/dL (70-99) Calcium Level 7.7 mg/dL (8.5-10.1) Phosphorus Level 4.3 mg/dL (2.6-4.7) Magnesium Level 1.9 mg/dL (1.8-2.4) Albumin 2.7 g/dL (3.4-5.0) Medications Current Medications Potassium Chloride (Klor-Con) 40 meq 1X ONCE PO Last administered on 09/25/19at 21:00; Start 09/25/19 at 20:15; Stop 09/25/19 at 20:16; Status DC Ondansetron HCl (Zofran) 4 mg PRN Q4HRS PRN IV NAUSEA/VOMITING; Start 09/25/19 at 21:15 Acetaminophen (Tylenol) 650 mg PRN Q4HRS PRN PO TEMP OVER 100.4F OR MILD PAIN Last administered on 09/26/19at 23:13; Start 09/25/19 at 21:15 Docusate Sodium (Colace) 100 mg PRN BID PRN PO HARD STOOLS; Start 09/25/19 at 21:15 Loperamide HCl (Imodium) 2 mg TID PO Last administered on 10/04/19at 09:09; Start 09/25/19 at 21:45 Potassium Chloride (Klor-Con) 20 meq BIDWMEALS PO Last administered on 10/03/19at 08:30; Start 09/26/19 at 08:00; Stop 10/03/19 at 12:49; Status DC Sodium Bicarbonate (Sodium Bicarbonate) 1,300 mg TIDWMEALS PO Last administered on 09/28/19at 11:32; Start 09/26/19 at 08:00; Stop 09/28/19 at 11:52; Status DC Tamsulosin HCl (Flomax) 0.4 mg DAILY PO Last administered on 10/04/19 09:08; Start 09/26/19 at 09:00 Tramadol HCl (Ultram) 50 mg PRN Q8HRS PRN PO MODERATE PAIN, SEVERE PAIN Last administered on 10/01/19 08:21; Start 09/25/19 at 21:30 Calcium Carbonate/ Glycine (Oscal) 500 mg TIDWMEALS PO Last administered on 10/05/19 17:52; Start 09/26/19 at 08:00 Magnesium Oxide (Magnesium Oxide) 400 mg TID PO Last administered on 10/03/19 08:29; Start 09/26/19 at 09:00; Stop 10/03/19 at 12:49; Status DC Psyllium Hydrophilic Mucilloid (Metamucil Fiber Packet) 1 pkt QHS PO Last administered on 10/03/19 20:54; Start 09/25/19 at 21:30 Furosemide (Lasix) 40 mg BID92 IVP Last administered on 09/28/19 08:36; Start 09/26/19 at 09:00; Stop 09/28/19 at 11:50; Status DC Heparin Sodium (Porcine) (Heparin Sodium) 5,000 unit Q8HRS SQ Last administered on 10/06/19 06:11; Start 09/25/19 at 22:00 Mirtazapine (Remeron) 7.5 mg QHS PO Last administered on 10/05/19 20:30; Start 09/26/19 at 21:00 Amlodipine Besylate (Norvasc) 5 mg DAILY PO Last administered on 10/04/19 09:09; Start 09/26/19 at 11:30 Furosemide (Lasix) 40 mg BID PO Last administered on 10/03/19 08:29; Start 09/29/19 at 09:00; Stop 10/03/19 at 12:49; Status DC Potassium Chloride (Klor-Con) 20 meq 1X ONCE PO ; Start 09/29/19 at 12:00; Stop 09/29/19 at 12:01; Status DC Lidocaine/ Epinephrine (LIDOCAINE 1%-EPI 1:100,000 Multi-Dose) 20 ml STK-MED ONCE .ROUTE ; Start 09/29/19 at 13:21; Stop 09/29/19 at 13:21; Status DC Midazolam HCl (Versed) 2 mg STK-MED ONCE .ROUTE ; Start 09/29/19 at 13:34; Stop 09/29/19 at 13:35; Status DC Fentanyl Citrate (Fentanyl 2ml Vial) 100 mcg STK-MED ONCE .ROUTE ; Start 09/29/19 at 13:35; Stop 09/29/19 at 13:35; Status DC Cefazolin Sodium (Ancef) 1 gm STK-MED ONCE IVP ; Start 09/29/19 at 13:39; Stop 09/29/19 at 13:40; Status DC Midazolam HCl (Versed) 1 mg 1X ONCE IV Last administered on 09/29/19at 14:18; Start 09/29/19 at 14:15; Stop 09/29/19 at 14:33; Status DC Fentanyl Citrate (Fentanyl 2ml Vial) 50 mcg 1X ONCE IV Last administered on 09/29/19at 14:18; Start 09/29/19 at 14:15; Stop 09/29/19 at 14:33; Status DC Cefazolin Sodium (Ancef) 1 gm 1X ONCE IVP Last administered on 09/29/19at 14:17; Start 09/29/19 at 14:15; Stop 09/29/19 at 14:33; Status DC Lidocaine HCl (Lidocaine 1% 20ml Vial) 12 ml 1X ONCE INJ ; Start 09/29/19 at 14:15; Stop 09/29/19 at 14:20; Status DC Lidocaine/ Epinephrine (LIDOCAINE 1%-EPI 1:100,000 Multi-Dose) 12 ml 1X ONCE INJ Last administered on 09/29/19at 14:02; Start 09/29/19 at 14:30; Stop 09/29/19 at 14:33; Status DC Sodium Chloride 1,000 ml @ 1,000 mls/hr Q1H PRN IV hypotension; Start 09/29/19 at 14:45; Stop 09/29/19 at 20:44; Status DC Sodium Chloride 1,000 ml @ 400 mls/hr Q2H30M PRN IV PATENCY; Start 09/29/19 at 14:45; Stop 09/30/19 at 02:44; Status DC Info (PHARMACY MONITORING -- do not chart) 1 each PRN DAILY PRN MC SEE COMMENTS; Start 09/29/19 at 15:00; Status UNV Info (PHARMACY MONITORING -- do not chart) 1 each PRN DAILY PRN MC SEE COMM ENTS; Start 09/29/19 at 15:00 Sodium Chloride 1,000 ml @ 1,000 mls/hr Q1H PRN IV hypotension; Start 09/30/19 at 09:27; Stop 09/30/19 at 15:26; Status DC Albumin Human 200 ml @ 200 mls/hr 1X PRN PRN IV Hypotension; Start 09/30/19 at 09:30; Stop 09/30/19 at 15:29; Status DC Acetaminophen (Tylenol) 500 mg 1X PRN PRN PO MILD PAIN / TEMP > 100.3'F; Start 09/30/19 at 09:30; Stop 09/30/19 at 19:00; Status DC Diphenhydramine HCl (Benadryl) 25 mg 1X PRN PRN IV ITCHING; Start 09/30/19 at 09:30; Stop 09/30/19 at 19:00; Status DC Diphenhydramine HCl (Benadryl) 25 mg 1X PRN PRN IV ITCHING; Start 09/30/19 at 09:30; Stop 09/30/19 at 19:00; Status DC Sodium Chloride (Normal Saline Flush) 10 ml 1X PRN PRN IV AP catheter pack; Start 09/30/19 at 09:30; Stop 09/30/19 at 19:00; Status DC Sodium Chloride (Normal Saline Flush) 10 ml 1X PRN PRN IV MEAT GRINDER catheter pack; Start 09/30/19 at 09:30; Stop 09/30/19 at 19:00; Status DC Sodium Chloride 1,000 ml @ 400 mls/hr Q2H30M PRN IV PATENCY; Start 09/30/19 at 09:27; Stop 09/30/19 at 21:26; Status DC Info (PHARMACY MONITORING -- do not chart) 1 each PRN DAILY PRN MC SEE COMMENTS; Start 09/30/19 at 09:30; Status Cancel Sodium Chloride 1,000 ml @ 1,000 mls/hr Q1H PRN IV hypotension; Start 10/02/19 at 07:30; Stop 10/02/19 at 13:29; Status DC Albumin Human 200 ml @ 200 mls/hr 1X PRN PRN IV Hypotension; Start 10/02/19 at 07:30; Stop 10/02/19 at 13:29; Status DC Sodium Chloride 1,000 ml @ 400 mls/hr Q2H30M PRN IV PATENCY; Start 10/02/19 at 07:30; Stop 10/02/19 at 19:29; Status DC Info (PHARMACY MONITORING -- do not chart) 1 each PRN DAILY PRN MC SEE COMMENTS; Start 10/02/19 at 09:30; Status UNV Info (PHARMACY MONITORING -- do not chart) 1 each PRN DAILY PRN MC SEE COMMENTS; Start 10/02/19 at 09:30; Status UNV Magnesium Oxide (Magnesium Oxide) 400 mg DAILY PO Last administered on 10/04/19at 09:08; Start 10/04/19 at 09:00 Magnesium Sulfate 50 ml @ 25 mls/hr PRN DAILY PRN IV for Mag < 1.7 on am labs; Start 10/04/19 at 13:15 Sodium Chloride 1,000 ml @ 1,000 mls/hr Q1H PRN IV hypotension; Start 10/05/19 at 09:09; Stop 10/05/19 at 15:08; Status DC Albumin Human 200 ml @ 200 mls/hr 1X PRN PRN IV Hypotension; Start 10/05/19 at 09:15; Stop 10/05/19 at 15:14; Status DC Acetaminophen (Tylenol) 500 mg 1X PRN PRN PO MILD PAIN / TEMP > 100.3'F; Start 10/05/19 at 09:15; Stop 10/06/19 at 09:14 Diphenhydramine HCl (Benadryl) 25 mg 1X PRN PRN IV ITCHING; Start 10/05/19 at 09:15; Stop 10/06/19 at 09:14 Diphenhydramine HCl (Benadryl) 25 mg 1X PRN PRN IV ITCHING; Start 10/05/19 at 09:15; Stop 10/06/19 at 09:14 Sodium Chloride (Normal Saline Flush) 10 ml 1X PRN PRN IV AP catheter pack; Start 10/05/19 at 09:15; Stop 10/06/19 at 09:14 Sodium Chloride (Normal Saline Flush) 10 ml 1X PRN PRN IV MEAT GRINDER catheter pack; Start 10/05/19 at 09:15; Stop 10/06/19 at 09:14 Sodium Chloride 1,000 ml @ 400 mls/hr Q2H30M PRN IV PATENCY; Start 10/05/19 at 09:09; Stop 10/05/19 at 21:08; Status DC Info (PHARMACY MONITORING -- do not chart) 1 each PRN DAILY PRN MC SEE COMMENTS; Start 10/05/19 at 09:15; Status UNV Active Scripts Active Calcium (Calcium Carbonate) 500 Mg Tab.chew 1 Tab PO TID 30 Days Sodium Bicarbonate 650 Mg Tablet 2 Tab PO TID 30 Days Potassium Chloride (Potassium Chloride) 20 Meq Tablet.er 20 Meq PO BID 30 Days Mag-Oxide (Magnesium Oxide) 200 Mg Tablet 1 Tab PO TID 30 Days Imodium A-D (Loperamide HCl) 2 Mg Capsule 2 Mg PO TID 30 Days Metamucil (Psyllium Husk) 0.52 Gm Capsule 1 Cap PO DAILY 30 Days Reported Tramadol Hcl 50 Mg Tablet 50 Mg PO PRN Q8HRS PRN Flomax (Tamsulosin Hcl) 0.4 Mg Cap.er.24h 1 Cap PO DAILY Vitals/I & O Vital Sign - Last 24 Hours 10/05/19 10/05/19 10/05/19 10/05/19 09:00 15:00 19:00 19:41 Temp 97.8 97.9 97.8 97.9 Pulse 65 75 59 Resp 18 18 B/P (MAP) 108/61 107/55 (72) 126/56 (79) Pulse Ox 96 98 O2 Delivery Room Air Room Air Nasal Cannula O2 Flow Rate 2.0 10/05/19 10/06/19 10/06/19 23:00 03:00 07:35 Temp 97.7 98.6 97.4 97.7 98.6 97.4 Pulse 60 55 59 Resp 18 18 18 B/P (MAP) 104/56 (72) 99/45 (63) 111/63 (79) Pulse Ox 93 98 97 O2 Delivery Room Air Room Air Room Air Intake and Output 10/05/19 10/05/19 10/06/19 15:00 23:00 07:00 Intake Total 240 ml 0 ml 50 ml Balance 240 ml 0 ml 50 ml Nutrition Consultation Dietary Evaluation: Recommendations by RD: Dietary education by RD, Increase Calorie Intake, Protein supplementation Comments: REC continue renal diet renal oral supplements - Nepro bid for HD Expected Outcomes/Goals: to meet >75% est nutr needs- goal ongoing Malnutrition Findings: Food and Nutrition Intake (Mod: <75% est energy req 7days Weight Status: Appropriate SHAKA BAL MD October 06, 2019 08:06
[2019-10-06] MEDS: LOPERAMIDE 2 MG CAPSULE PO SCH ×2 (08:20→14:00)
[2019-10-06] MEDS: MAGNESIUM OXIDE 400 MG TABLET PO SCH (08:20)
[2019-10-06] MEDS: TAMSULOSIN 0.4 MG CAP.ER.24H. PO SCH (08:20)
[2019-10-06] MEDS: CALCIUM CARBONATE 500 MG TABLET PO SCH ×2 (08:20→12:08)
[2019-10-06] MEDS: amLODIPine BESYLATE 5 MG TABLET PO SCH (08:21)
--- NOTE | 2019-10-06 10:50 | PDOC ---
CARDIO Progress Notes Date and Time Date of Service 10/06/19 Time of Evaluation 1045 Subjective Subjective: No Chest Pain, No shortness of breath, No Palpitations Vitals Vitals Vital Signs Date Time Temp Pulse Resp B/P (MAP) Pulse Ox O2 Delivery O2 Flow Rate FiO2 10/06/19 08:21 59 111/63 10/06/19 08:00 Room Air 10/06/19 07:35 97.4 18 97 97.4 10/05/19 19:41 2.0 Weight Weight [ ] Input and Output Intake and Output Intake and Output 10/06/19 07:00 Intake Total 290 ml Balance 290 ml Intake Oral 290 ml Laboratory Labs Laboratory Tests Test 10/06/19 03:14 Sodium Level 140 mmol/L (136-145) Potassium Level 4.2 mmol/L (3.5-5.1) Chloride Level 103 mmol/L (98-107) Carbon Dioxide Level 28 mmol/L (21-32) Anion Gap 9 (6-14) Blood Urea Nitrogen 25 mg/dL (8-26) Creatinine 2.8 mg/dL (0.7-1.3) Estimated GFR (Cockcroft-Gault) 21.9 Glucose Level 91 mg/dL (70-99) Calcium Level 7.7 mg/dL (8.5-10.1) Phosphorus Level 4.3 mg/dL (2.6-4.7) Magnesium Level 1.9 mg/dL (1.8-2.4) Albumin 2.7 g/dL (3.4-5.0) Review of Systems Constitutional: yes: alert Ears/Nose/Throat: Yes: no symptom reported Eyes: Yes: no symptom reported Pulmonary: Yes no symptom reported Gastrointestional: Yes: constipation Genitourinary: Yes: no symptom reported Musculoskeletal: Yes: muscle stiffness Skin: Yes no symptom reported Psychiatric/Neurological: Yes: no symptom reported Physical Exam HEENT: Neck Supple W Full Motion Chest: Symmetric LUNGS: Clear to Auscultation Heart: other (SR with intermittent accelerated idioventricular rhythm.) Abdomen: Soft N/T Extremities: No Edema Neurology: alert, oriented, follow commands Assessment Assessment 1. Acute on chronic diastolic CHF; appears compensated 2. Mild troponin elevation; peak 0.09. Most probably type II, demand ischemia. CP free. 3. Arrhythmia: continues to have same intermittent idioventricular and occasional bursts of NSVT. No significant bradyarrhythmias overnight. Mean HR 60s. 4. CKD, now ESRD on HD 5. Hypertension; controlled 6. Colon CA s/p colectomy with ileostomy Recommendations Avoid AV emelina blocking agents Outpatient event monitor Outpatient MPI has been arranged Supportive care Okay to discharge from a CV standpoint Follow up in our [place] office with Dr. Jones as scheduled. JANEE VO APRN October 06, 2019 10:50
[2019-10-06 11:04] VITALS: BP 104/63
[2019-10-06] MEDS ORDERED: AMLO5TAB10 PO (11:09)
[2019-10-06] MEDS ORDERED: MIRT7.5T8 PO (11:09)
--- NOTE | 2019-10-06 11:11 | SNU/HH DC ---
DISCHARGE WITH HOME HEALTH DISCHARGE INFORMATION: Discharge Date: October 06, 2019 Final Diagnosis: Acute diastolic CHF, SUHAS on CKD, New ESRD Condition on Discharge: Stable CODE STATUS: Code Status: DNR/DNI HOME HEALTH: Face to Face: I certify this patient is under my care and that I, or a nurse practitioner or physician's culture media laboratory assistant working with me, had a face to face encounter that meets the physician face to face encounter requirements with this patient on 10/06/2019. Medical Complications: CHF, DJD RN For Eval/Treatment: Yes Physical Therapy For: Evalulation/Treatment Occupational Therapy For: Evaluation/Treatment Pt Meets Homebound Status: Poor coordination w/ amb., Limited distance walking POST DISCHARGE ORDERS: Activity Instructions for Disc: Resume previous activity DIET AFTER DISCHARGE: Renal Wound/Incision Care: Ice to area for comfort, Reinforce dressing PRN CHECKS AFTER DISCHARGE: Checks after discharge: Check blood press - daily, Check your Temp as needed, Weigh Yourself Daily FOLLOW-UP: Follow up with: [facility] Follow Up With: Cardiology - Dr. Kevin Diggs TREATMENT/EQUIPMENT ORDERS: Infusion Equipment, home use: PICC Line (TUNNELED DIALYSIS CATHETER) CERTIFICATION STATEMENT: Certification Statement: Certification Statement: Based on the above finding, I certify that this patient is confined to the home and needs intermittent residential care, physical therapy and/or speech therapy, or continues to need occupational therapy.~ This patient is under my care, and I have initiated the establishment of the plan of care.~ This patient will be followed by myself or a community physician who will periodically review the plan of care. Home Meds Active Scripts Mirtazapine (MIRTAZAPINE) 7.5 Mg Tablet, 7.5 MG PO QHS for Appetite,sleep for 90 Days, #90 TAB 1 Refill Prov:SHAKA BAL MD 10/06/19 Amlodipine Besylate (AMLODIPINE BESYLATE) 5 Mg Tablet, 5 MG PO DAILY for HTN for 90 Days, #90 TAB 1 Refill Prov:SHAKA BAL MD 10/06/19 Calcium Carbonate (CALCIUM) 500 Mg Tab.chew, 1 TAB PO TID for hypocalcemia for 30 Days, #90 TAB 0 Refills Prov:RIC NARVAEZ MD 07/13/19 Loperamide HCl (Imodium A-D) 2 Mg Capsule, 2 MG PO TID for diarrhea for 30 Days, #90 CAP Prov:RIC NARVAEZ MD 07/13/19 Psyllium Husk (METAMUCIL) 0.52 Gm Capsule, 1 CAP PO DAILY for diarrhea for 30 Days, #30 CAP 0 Refills Prov:RIC NARVAEZ MD 07/13/19 Reported Medications Tramadol Hcl (TRAMADOL HCL) 50 Mg Tablet, 50 MG PO PRN Q8HRS PRN for PAIN, TAB 07/08/19 Tamsulosin Hcl (FLOMAX) 0.4 Mg Cap.er.24h, 1 CAP PO DAILY for bph, #30 CAP 11 Refills 07/08/19 Discontinued Scripts Sodium Bicarbonate (SODIUM BICARBONATE) 650 Mg Tablet, 2 TAB PO TID for acidosis for 30 Days, #180 TAB 5 Refills Prov:RIC NARVAEZ MD 07/13/19 Potassium Chloride (POTASSIUM CHLORIDE ) 20 Meq Tablet.er, 20 MEQ PO BID for SUPPLEMENT for 30 Days, #60 TAB.SR Prov:RIC NARVAEZ MD 07/13/19 Magnesium Oxide (Mag-Oxide) 200 Mg Tablet, 1 TAB PO TID for hypomagnesemia for 30 Days, #90 TAB 0 Refills Prov:RIC NARVAEZ MD 07/13/19 SHAKA BAL MD October 06, 2019 11:11
--- NOTE | 2019-10-06 11:18 | PDOC3 ---
Discharge Summary Visit Information Date of Admission: September 25, 2019 Date of Discharge: October 06, 2019 Admitting Diagnosis: Acute on chronic CHF Final Diagnosis Acute on chronic CHF Brief Hospital Course Allergies Allergies Coded Allergies Type Severity Reaction Last Updated Verified Penicillins Allergy Intermediate 09/30/19 Yes aspirin Allergy Intermediate chest pain 07/08/19 Yes Vital Signs Vital Signs Date Time Temp Pulse Resp B/P (MAP) Pulse Ox O2 Delivery O2 Flow Rate FiO2 10/06/19 11:04 98.0 71 18 104/63 (77) 95 Room Air 98.0 10/05/19 19:41 2.0 Lab Results Laboratory Tests Test 10/05/19 03:41 10/06/19 03:14 Hemoglobin 11.7 g/dL (13.0-17.5) Sodium Level 140 mmol/L (136-145) 140 mmol/L (136-145) Potassium Level 4.1 mmol/L (3.5-5.1) 4.2 mmol/L (3.5-5.1) Chloride Level 102 mmol/L (98-107) 103 mmol/L (98-107) Carbon Dioxide Level 28 mmol/L (21-32) 28 mmol/L (21-32) Anion Gap 10 (6-14) 9 (6-14) Blood Urea Nitrogen 53 mg/dL (8-26) 25 mg/dL (8-26) Creatinine 4.2 mg/dL (0.7-1.3) 2.8 mg/dL (0.7-1.3) Estimated GFR (Cockcroft-Gault) 13.7 21.9 Glucose Level 85 mg/dL (70-99) 91 mg/dL (70-99) Calcium Level 8.1 mg/dL (8.5-10.1) 7.7 mg/dL (8.5-10.1) Phosphorus Level 5.2 mg/dL (2.6-4.7) 4.3 mg/dL (2.6-4.7) Magnesium Level 2.2 mg/dL (1.8-2.4) 1.9 mg/dL (1.8-2.4) Albumin 2.7 g/dL (3.4-5.0) 2.7 g/dL (3.4-5.0) Laboratory Tests Test 10/06/19 03:14 Sodium Level 140 mmol/L (136-145) Potassium Level 4.2 mmol/L (3.5-5.1) Chloride Level 103 mmol/L (98-107) Carbon Dioxide Level 28 mmol/L (21-32) Anion Gap 9 (6-14) Blood Urea Nitrogen 25 mg/dL (8-26) Creatinine 2.8 mg/dL (0.7-1.3) Estimated GFR (Cockcroft-Gault) 21.9 Glucose Level 91 mg/dL (70-99) Calcium Level 7.7 mg/dL (8.5-10.1) Phosphorus Level 4.3 mg/dL (2.6-4.7) Magnesium Level 1.9 mg/dL (1.8-2.4) Albumin 2.7 g/dL (3.4-5.0) Brief Hospital Course Mr Puente is an 79yo M w/ PMHx Rectal Cancer s/p diverting ileostomy, diastolic CHF, CKD, ETOH use disorder in remission who presents to the emergency department at [facility] on 09/25/2019 with a several day history of progressive lightheadedness and feeling weak. He states the last time he felt like this he was in renal failure. Patient also states that he has been having shortness of breath dyspnea on exertion he is not making much urine. CXR revealed bilateral small effusions and bibasilar opacities adjacent to effusions left greater than right. Labs significant for BNP greater than 35,000, WBC 9.2, Hb 11.6, platelets 313, albumin 3.3. NA 140, K3.4, BUN 43, CR 3.5, glucose 123, troponin 0 0.128, repeat troponin 0 0.099. EKG: Normal sinus rhythm rate of [address]-T changes He was given 80 mg of furosemide and transferred to [facility]. Here for further treatment. Nephrology and cardiology consulted. 09/28: Tunneled dialysis catheter placed. Initiated on HD 09/29: Noted with mucus per rectum, this is normal in colostomy patients. 10/03: No acute events reported overnight, case discussed with nursing staff patient in no acute distress no complaints during my visit. Shortness of breath has resolved, no chest pain. He tells me when he looks in the mirror he thinks he looks terrible. He feels the dialysis wipes him out. He feels significantly better than before he came into the hospital, though. Awaiting outpatient dialysis placement. 10/04: Nursing noted some overnight bradycardia into the 30s. Afebrile overnight. Still on NCO2 2L. Seen on dialysis. He has chair available now [facility]. He is still feeling weak. Otherwise stable. Cardiology recommends no AV emelina blocking agents given symptomatic bradycardia. No hypoxia on 6-minute walk. Labs stable. Dialysis arranged for 10/08/2019 at [facility] in [place]. BP better controlled with amlodipine. Home health ordered family notified of discharge today. Consults: Cardiology, nephrology Problem list: Acute on chronic diastolic (congestive) heart failure - will continue dialysis. Off BB for symptomatic bradycardia, cardiology recommends no BB, statin, ASA. Cr. precludes MEDINA/ARB therapy. SUHAS on Chronic renal failure, stage 4 (severe) - likely vasomotor nephropathy, cardiorenal. Cont dialysis, outpatient now ESRD Bilateral pleural effusions - Will diurese, likely CHF related. Acute hypoxic respiratory failure - likely related to above, resolved Colorectal cancer in remission - s/p diverting ileostomy. Stoma care ordered Elevated troponin - likely demand ischemia given acute CHF exacerbation Loss of appetite - will start on remeron Insomnia - as above Plan: D/c home with home health and outpatient dialysis Greater than 30 minutes spent on d/c Discharge Information Condition at Discharge: Improved Follow Up: Weeks (1) Disposition/Orders: D/C to Home w/ HH Scheduled Amlodipine Besylate (Amlodipine Besylate) 5 Mg Tablet, 5 MG PO DAILY for HTN for 90 Days, #90 Ref 1 Prescribed by: SHAKA BAL MD on 10/06/19 1109 Calcium Carbonate (Calcium) 500 Mg Tab.chew, 1 TAB PO TID for hypocalcemia for 30 Days, #90 Ref 0 Prescribed by: BRICE LARIOS on 07/13/19957 Last Action: Converted on 09/25/192120 by SHAKA BAL MD Loperamide HCl (Imodium A-D) 2 Mg Capsule, 2 MG PO TID for diarrhea for 30 Days, #90 Prescribed by: BRICE LARIOS on 07/13/19956 Last Action: Continued on 09/25/192120 by SHAKA BAL MD Mirtazapine (Mirtazapine) 7.5 Mg Tablet, 7.5 MG PO QHS for Appetite,sleep for 90 Days, #90 Ref 1 Prescribed by: SHAKA BAL MD on 10/06/19 110 Psyllium Husk (Metamucil) 0.52 Gm Capsule, 1 CAP PO DAILY for diarrhea for 30 Days, #30 Ref 0 Prescribed by: BRICE LARIOS on 07/13/19956 Last Action: Converted on 09/25/192120 by SHAKA BAL MD Tamsulosin Hcl (Flomax) 0.4 Mg Cap.er.24h, 1 CAP PO DAILY for bph, #30 Ref 11 (Reported) Entered as Reported by: Jaden Cortes on 07/08/1955 Last Action: Continued on 09/25/192120 by SHAKA BAL MD Scheduled PRN Tramadol Hcl (Tramadol Hcl) 50 Mg Tablet, 50 MG PO PRN Q8HRS PRN for PAIN, (Reported) Entered as Reported by: Jaden Cortes on 07/08/1955 Last Action: Continued on 09/25/192120 by SHAKA BAL MD Discontinued Medications Magnesium Oxide (Mag-Oxide) 200 Mg Tablet, 1 TAB PO TID for hypomagnesemia for 30 Days, #90 Ref 0 Prescribed by: BRICE LARIOS on 07/13/19956 Last Action: Converted on 09/25/192120 by SHAKA BAL MD Potassium Chloride (Potassium Chloride ) 20 Meq Tablet.er, 20 MEQ PO BID for SUPPLEMENT for 30 Days, #60 Prescribed by: BRICE LARIOS on 07/13/19956 Last Action: Continued on 09/25/192120 by SHAKA BAL MD Sodium Bicarbonate (Sodium Bicarbonate) 650 Mg Tablet, 2 TAB PO TID for acidosis for 30 Days, #180 Ref 5 Prescribed by: BRICE LARIOS on 07/13/19957 Last Action: Continued on 09/25/192120 by MD VALERIANO THAKKAR CHRISTOPHER S MD October 06, 2019 11:18
--- NOTE | 2019-10-06 11:20 | PDOC ---
Renal-Progress Notes Subjective Notes Notes NONE History of Present Illness Hx of present illness STABLE Vitals Vitals Vital Signs Date Time Temp Pulse Resp B/P (MAP) Pulse Ox O2 Delivery O2 Flow Rate FiO2 10/06/19 11:04 98.0 71 18 104/63 (77) 95 Room Air 98.0 10/05/19 19:41 2.0 Weight Weight [ ] I.O. Intake and Output Intake and Output 10/06/19 07:00 Intake Total 290 ml Balance 290 ml Intake Oral 290 ml Labs Labs Laboratory Tests Test 10/06/19 03:14 Sodium Level 140 mmol/L (136-145) Potassium Level 4.2 mmol/L (3.5-5.1) Chloride Level 103 mmol/L (98-107) Carbon Dioxide Level 28 mmol/L (21-32) Anion Gap 9 (6-14) Blood Urea Nitrogen 25 mg/dL (8-26) Creatinine 2.8 mg/dL (0.7-1.3) Estimated GFR (Cockcroft-Gault) 21.9 Glucose Level 91 mg/dL (70-99) Calcium Level 7.7 mg/dL (8.5-10.1) Phosphorus Level 4.3 mg/dL (2.6-4.7) Magnesium Level 1.9 mg/dL (1.8-2.4) Albumin 2.7 g/dL (3.4-5.0) Review of Systems Constitutional: yes: alert Ears/Nose/Throat: Yes: no symptom reported Eyes: Yes: no symptom reported Pulmonary: Yes no symptom reported Gastrointestional: Yes: constipation Genitourinary: Yes: no symptom reported Musculoskeletal: Yes: muscle stiffness Skin: Yes no symptom reported Psychiatric/Neurological: Yes: no symptom reported Physical Exam General Appearance: no apparent distress Skin: warm Respiratory: bilateral CTA Heart: S1S2 Abdomen: soft, bowel sounds present Genitourinary: bladder flat Extremities: pulses present Neurology: alert, oriented, follow commands Assessment Assessment IMP ESRD ANEMIA HTN PLAN OP HD ON MWF NEXT HD MOST LIKELY OP IF DISCHARGED OP HD SET UP AT [facility] TILL OPENING AVAILABLE AT [facility] G[facility]IA MD October 06, 2019 11:20
--- NOTE | 2019-10-06 11:33 | NUR ---
SS following up with discharge planning. Discharge orders for home healthcare received. Referral phoned and faxed to [facility], ; fax [phone], by nurse navigator. Pt's RN notified.
[2019-10-06 15:04] VITALS: BP 115/56
--- NOTE | 2019-10-06 15:20 | NUR ---
PT DISCHARGED TO HOME WITH FAMILY. DISCHARGE TEACHING REVIEWED WITH PATIENT AND DAUGHTER. MEDICATION CHANGES REVIEWED. PT IS TO START HD ON FRIDAY. DAUGHTER HAS DETAILS ON PLACE AND TIME. BOTH VERBALIZED UNDERSTANDING OF DISCHARGE INSTRUCTIONS.
== END 2019-10-06 15:20 | disposition home or self-care (01) | DRG 673 ==
LOC: 6 SOUTH 19:48
PROVIDERS: ADMIT Internal Medicine; ATTEND Internal Medicine
PROC: 5A1D70Z Performance of Urinary Filtration, Intermittent, Less than 6 Hours Per Day (ICD-10-PCS; 2019-09-29)
PROC: 0JH63XZ Insertion of Tunneled Vascular Access Device into Chest Subcutaneous Tissue and Fascia, Percutaneous Approach (ICD-10-PCS; principal; 2019-09-30)
PROC: 5A1D70Z Performance of Urinary Filtration, Intermittent, Less than 6 Hours Per Day (ICD-10-PCS; 2019-09-30)
PROC: 02H633Z Insertion of Infusion Device into Right Atrium, Percutaneous Approach (ICD-10-PCS; 2019-09-30)
PROC: B548ZZA Ultrasonography of Superior Vena Cava, Guidance (ICD-10-PCS; 2019-09-30)
PROC: 5A1D70Z Performance of Urinary Filtration, Intermittent, Less than 6 Hours Per Day (ICD-10-PCS; 2019-10-02)
PROC: 5A1D70Z Performance of Urinary Filtration, Intermittent, Less than 6 Hours Per Day (ICD-10-PCS; 2019-10-05)
DX: N17.0 Acute kidney failure with tubular necrosis (principal); J96.01 Acute respiratory failure with hypoxia; I50.33 Acute on chronic diastolic (congestive) heart failure; I13.2 Hypertensive heart and chronic kidney disease with heart failure and with stage 5 chronic kidney disease, or end stage renal disease; I24.8 Other forms of acute ischemic heart disease; I47.2 Ventricular tachycardia; N18.6 End stage renal disease; R63.0 Anorexia; G47.00 Insomnia, unspecified; E78.5 Hyperlipidemia, unspecified; I48.0 Paroxysmal atrial fibrillation; D64.9 Anemia, unspecified; E87.6 Hypokalemia; N28.1 Cyst of kidney, acquired; N40.0 Benign prostatic hyperplasia without lower urinary tract symptoms; I49.9 Cardiac arrhythmia, unspecified; Z20.828 Contact with and (suspected) exposure to other viral communicable diseases; Z88.0 Allergy status to penicillin; Z88.5 Allergy status to narcotic agent; Z93.2 Ileostomy status; Z90.49 Acquired absence of other specified parts of digestive tract; Z99.2 Dependence on renal dialysis; Z98.49 Cataract extraction status, unspecified eye; Z82.49 Family history of ischemic heart disease and other diseases of the circulatory system; Z85.048 Personal history of other malignant neoplasm of rectum, rectosigmoid junction, and anus; Z79.01 Long term (current) use of anticoagulants; Z88.6 Allergy status to analgesic agent; Z93.3 Colostomy status
CPT/HCPCS: 36415; 36558; 71045; 76937; 77001; 80048; 80061; 80069; 83735; 84100; 84145; 84484; 85018; 85027; 85610; 86704; 86706; 87340; 93005; 94618; 99152; C1750; C1769; C1892; J0690; J1644; J1940; J2250; J3010; J3490; 97110-GP; 97116-GP; 97535-GO; G0378; U0003-CS